=== PATIENT | male | born 1985 | race African-American/Black ===

== ENCOUNTER 2016-11-05 06:06 | Inpatient (IN) ==
[2016-11-05 07:01] LABS: Basophils % 0.2 % (0.0-0.8); Eosinophils # 0.2 10*3/uL (0.0-0.87); Eosinophils % 3.3 % (0.00-10.9); Immature Granulocytes % 0.2 %; Immature Granulocytes Absolute 0.01 #; Lymphocytes # 1.1 10*3/uL (1.4-4.0); Lymphocytes % 22.7 % (21.2-54.2); Mean Corpuscular Hemoglobin 30 PG (27-34); Mean Corpuscular Volume 92.3 FL (87-102); Mean Platelet Volume 9.5 FL (9.6-12.0); Monocytes # 0.4 10*3/uL (0.11-0.8); Monocytes % 7.6 % (1.7-12.7); Neutrophils # 3.2 10*3/uL (1.4-7.4); Platelet Count 180 T/CUMM (130-400); Red Blood Count 2.71 MC/CUMM (3.8-5.5); Red Cell Distribution Width 17.9 % (9.3-17.3); White Blood Count 4.8 T/CUMM (4-12)
[2016-11-05 07:44] LABS: Alanine Aminotransferase 41 U/L (16-61); Albumin 2.5 G/DL (3.4-5.0); Alkaline Phosphatase 225 U/L (45-117); Amylase 237 U/L (25-115); Aspartate Amino Transferase 16 U/L (0-37); Bilirubin,Indirect 0.3 MG/DL (0.0-1.0); Bilirubin,Total < 0.39 MG/DL (0.2-1.0); Blood Urea Nitrogen 21 MG/DL (7-18); Calcium 8.4 MG/DL (8.5-10.1); Glucose 254 MG/DL (74-106); Osmolality,Calculated 294.1 MOS/KG (273-304); Sodium 142 MMOL/L (136-145); Total Protein 6.2 G/DL (6.4-8.3)
--- NOTE | 2016-11-05 10:04 | Ultrasound Report ---
Left lower extremity venous Doppler with bob scale, Spectral Doppler and color-flow analysis performed and interpreted. Indication: Left leg pain and swelling Scanning over the left common femoral vein, superficial femoral vein, greater saphenous vein and popliteal vein demonstrates normal compressibility, color flow, and augmentation. Impression: No evidence of left lower extremity deep venous thrombosis. PROCEDURE INTERPRETED AT [facility] DEPARTMENT OF RADIOLOGY Final Report Signed by: Dr. Carolann Alvarez
--- NOTE | 2016-11-05 10:31 | Emergency Department Note ---
Dante Bueno Brittany, am scribing for, and in the presence of, Jewel Pizano MD 06:52. Harinder Bueno Sunil, MD, personally performed the services described in this documentation, ascribed by Sadaf Howell in my presence, and it is both accurate and complete . Arrival - Arrival Chief Complaint: Shortness of Breath Stated Complaint: fluid around stomach leg swollen sob ED Nursing Triage Note: Patient complains of shortness of breath and swelling that has been going on since he was discharged from the hospital on October 27. Patient was recently hospitalized and treated for staph infection and pneumonia. +3 pitting edema noted to left leg and right thigh. Hx of non- compliant DM and right BKA. Mode of Arrival: Wheelchair Limitations: No Limitations Source: Patient, RN Notes Reviewed - History of Present Illness HPI Narrative: Patient is a 31 y/o black male presenting to the ED with c/o abdominal swelling and lower extremity edema which onset earlier this month, about 9 days ago per patient. Per triage note patient was recently DC'd from another facility on October 27 s/p admission for Staph Infection. Patient reports that during hospitalization he had drains placed to bilateral upper thigh areas. Swelling has been ongoing since his DC. He is currently on Lasix 80 mg BID, but he states that this has not provided any relief of swelling and is not producing adequate urine. Patient had Right BKA performed March of 2016 secondary to uncontrolled IDDM. He denies use of EtOH or recreational drugs. He states that he recently quit smoking. He denies history of CHF or AK. Patient has no other complaint/pain. He does not appear to be in any acute distress and vital signs are stable. Onset (ago): day(s) (9) Consistency: constant Allergies/Adverse Reactions: Allergies Allergy/AdvReac Type Severity Reaction Status Date / Time No Known Allergies Allergy Verified 08/21/14 10:03 Home Medications: Home Medications Medication Instructions Recorded Confirmed Type Insulin Aspart Prot/Asp 70/30 20 unit SUBCUT QAM 10/26/14 11/05/16 History [NovoLOG Mix 70/30] Chlorhexidine 4% Soln [Hibiclens] 1 applic TOP DAILY topical 08/06/15 11/05/16 Rx solution HYDROcodone/ACETAMIN 7.5-325 1 tablet PO Q4H PRN #30 tablet 08/06/15 11/05/16 Rx [[place] 7.5-325] Nicotine 21 mg/24 Hr Patch 1 patch TRANSDERM DAILY PRN #20 08/06/15 11/05/16 Rx [Nicoderm CQ 21 mg/24 hr Patch] patch Sodium Hypochlorite 0.25% Irr 1 applic TOP DAILY irrigation 08/06/15 11/05/16 Rx [Dakins 1/2 Strength 0.25% Soln] Ciprofloxacin Tab [Cipro Tab] 500 mg PO BID #14 tablet 08/09/15 11/05/16 Rx Insulin Aspart Prot/Asp 70/30 6 unit SUBCUT BEDTIME injection 08/09/15 Rx [NovoLOG Mix 70/30] Skin Healing Oint (Aquaphor) 1 applic TOP PRN PRN #0 ointment 08/09/15 11/05/16 Rx [Aquaphor] Clindamycin Cap [Cleocin Cap] 300 mg PO Q6HR #28 capsule 02/23/16 11/05/16 Rx Fluticasone 50 Mcg Nasal [place] 2 spray BOTH NARES DAILY 11/05/16 11/05/16 History [Flonase Nasal [place]] Review of System - Review of System 12 point system: reviewed and no additional remarkable complaints except as stated - Review of System Constitutional: Absent: chills, fever Eyes: Absent: vision change Head/Ears/Nose/Throat: Absent: nasal drainage, sore throat Respiratory: Absent: respiratory distress Cardiovascular: Present: edema. Absent: chest pain Gastrointestinal: Present: other (abdominal swelling). 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 - Surgical History Orthopedic Surgeries: Surgical HX of;: Orthopedic Surgery (Right BKA) - Family History Family History: Reports;: Family Diabetes (mother), Family Hypertension, Family Stroke - Social History Smoking Status: Current every day smoker Frequency of Alcohol Use: None Type of Drug Use: None Exam Vital Signs: Vital Signs Temperature 97.8 F 11/05/16 07:01 Pulse Rate 91 H 11/05/16 09:00 Respiratory Rate 17 11/05/16 09:00 Blood Pressure 155/99 11/05/16 09:00 O2 Sat by Pulse Oximetry 100 11/05/16 09:00 - General General appearance: alert, in no apparent distress - Head Head exam: Present: atraumatic, normocephalic, normal inspection - Eye Eye exam: Present: normal appearance, PERRL, EOMI - ENT ENT exam: Present: normal exam, normal oropharynx - Neck Neck exam: Present: normal inspection, full ROM, trachea midline - Chest Chest inspection: Present: normal inspection, symmetric chest wall rise - Respiratory Respiratory exam: Present: normal lung sounds bilaterally - Cardiovascular Cardiovascular exam: Present: regular rate, normal rhythm, normal heart sounds - Abdominal Exam Abdominal exam: Present: soft, distention (slightly distended abdomen), tenderness (diffusely tender to palpation), normal bowel sounds. Absent: guarding, rebound - Extremities Exam Extremities exam: Absent: normal inspection (Right BKA, swollen LLE, DIONNE hose noted to LLE up to mid-thigh) - Back Exam Back exam: Present: normal inspection - Neurological Exam Neurological exam: Present: alert, oriented X3, CN II-XII intact. Absent: motor sensory deficit - Psychiatric Psychiatric exam: Present: normal affect, normal mood - Skin Skin exam: Present: warm, dry Results - Labs CBC & BMP: 11/05/16 06:36 11/05/16 06:36 Lab Results: I have reviewed the patients labs Labs: Laboratory Tests 11/05/16 06:36 WBC 4.8 RBC 2.71 L Hgb 8.0 L Hct 25.0 L RDW 17.9 H Plt Count 180 MPV 9.5 L Lymph # (Auto) 1.1 L Laboratory Tests 11/05/16 06:36 Sodium 142 Potassium 5.0 Chloride 119 H Carbon Dioxide 14 L BUN 21 H Creatinine 1.40 H Glucose 254 H Calcium 8.4 L Alkaline Phosphatase 225 H Total Protein 6.2 L Albumin 2.5 L Amylase 237 H Lipase 2564.0 H Laboratory Tests 11/05/16 07:07 B-Natriuretic Peptide 263 H - Impressions This patient presents with epigastric pain not feeling well left lower extremity swelling venous Doppler of the left lower extremity is negative for blood clots but his amylase and lipase both are elevated This patient has acute pancreatitis I discussed with the physician medical assistant cardiology for the hospitalist who will see the patient - Diagnostic Findings Procedure: Ultrasound: report reviewed by me (Venous Doppler: No evidence of left lower extremity deep venous thrombosis.) Disposition Clinical Impression: Pancreatitis Case discussed with: patient Disposition: Still a Patient
--- NOTE | 2016-11-05 11:10 | Hospitalist History & Physical ---
<Asia Bernard - Last Filed: 11/05/16 13:06> Assessment and Plan (1) Anemia Status: Acute Assessment and plan: Serial h&hs. Monitor patient. Order PPI. Anemia panel. Consult GI for evaluation. Current Visit: Yes (2) Pancreatitis Status: Acute Assessment and plan: Lipase elevated. F/u with abdominal study. IVF. pain med as needed. Bowel rest. Current Visit: Yes (3) Uncontrolled insulin dependent diabetes mellitus Status: Acute Assessment and plan: Accuchecks achs. Initiate SSI. Consult DM for education. Check A1c in am. Current Visit: No (4) GI bleeding Status: Acute Assessment and plan: Pt. reports throwing up maroon colored blood and passing loose stools that are bright red in color. Consult GI to evaluate. Monitor serial h&hs. IVF. PPI ordered. Current Visit: Yes History of Present Illness Chief complaint: abdominal swelling History of present illness: Mr. Schumacher is a 31 year old black male with a history of uncontrolled DM with a right bka and anemia that presented to the ED today with complaints of swelling to abdomen, mild pain, and lower extremities with hematemesis and BRBPR. The patient states he noted the swelling about 9 days. He also reports being recently discharged from another facility where he was hospitalized for greater than 2 weeks for a staph infection. He states that the swelling has been ongoing since his hospitalization at that time. Pt. confirms feeling feverish, experiencing chills, n/v/d. He states he takes Lasix 80 mg twice daily but has seen a decrease in his urine output. He reports swelling to the left extremity and states his face even swelled at one point. He denies chest pain. Pt. also denies any other issues in the ED at this time. When patient presented to the ED , labs were drawn and pt was found to have a lipase over greater than 2000, elevated blood sugar at 254, bun/creatinine 21/1.40, BNP of 263 and h&h of 8 and 25. CXR also revealed infiltrate at left lung base. Pt. will be admitted to the hospitalist service for further eval and treatment. Home Medications Medication Instructions Recorded Confirmed Type Chlorhexidine 4% Soln [Hibiclens] 1 applic TOP DAILY topical 08/06/15 11/05/16 Rx solution HYDROcodone/ACETAMIN 7.5-325 1 tablet PO Q4H PRN #30 tablet 08/06/15 11/05/16 Rx [[place] 7.5-325] Nicotine 21 mg/24 Hr Patch 1 patch TRANSDERM DAILY PRN #20 08/06/15 11/05/16 Rx [Nicoderm CQ 21 mg/24 hr Patch] patch Sodium Hypochlorite 0.25% Irr 1 applic TOP DAILY irrigation 08/06/15 11/05/16 Rx [Dakins 1/2 Strength 0.25% Soln] Ciprofloxacin Tab [Cipro Tab] 500 mg PO BID #14 tablet 08/09/15 11/05/16 Rx Skin Healing Oint (Aquaphor) 1 applic TOP PRN PRN #0 ointment 08/09/15 11/05/16 Rx [Aquaphor] Clindamycin Cap [Cleocin Cap] 300 mg PO Q6HR #28 capsule 02/23/16 11/05/16 Rx Fluticasone 50 Mcg Nasal [place] 2 spray BOTH NARES DAILY 11/05/16 11/05/16 History [Flonase Nasal [place]] Gabapentin Cap/Tab [Neurontin 600 mg PO TID 11/05/16 11/05/16 History Cap/Tab] Insulin Detemir [Levemir] 10 unit SUBCUT DAILY 11/05/16 11/05/16 History Allergies Allergy/AdvReac Type Severity Reaction Status Date / Time No Known Allergies Allergy Verified 08/21/14 10:03 Medical,Surgical,& Family Hx - Medical History Endocrine: History of: Diabetes Mellitus (IDDM), Diabetes Mellitus (NIDDM) Musculoskeletal: History of: Amputation (right bka) 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 - Surgical History Orthopedic Surgeries: Surgical HX of;: Orthopedic Surgery (Right BKA) - Family History Family History: Reports;: Family Diabetes (mother), Family Hypertension, Family Stroke - Social History Smoking Status: Current every day smoker Frequency of Alcohol Use: None Type of Drug Use: None Marital Status: Single Lives With:: Parent Functional capacity: uses cane/walker - Constitutional Constitutional: Present: chills, fever(s), night sweats, weakness - EENT Eyes: Absent: blurry vision, loss of vision Ears: Absent: decreased hearing Nose, mouth and throat: Absent: epistaxis, headache(s) - Cardiovascular Cardiovascular: Present: edema. Absent: chest pain at rest - Gastrointestinal Gastrointestinal: Present: abdominal pain, hematemesis, loose stools, nausea, vomiting - Genitourinary Genitourinary: Present: dysuria - Neurological Neurological: Absent: confusion, dizziness - Psychiatric Psychiatric: Present: anxiety, depression Exam - Constitutional Vitals: Period Temp Pulse Resp BP Sys/Gre[place] Pulse Ox Last 24 Hr 97.8 F-97.8 F 91-103 17-20 108-155/67-99 100-100 General appearance: normal weight, no acute distress - Head Head exam: Present: normal inspection, normocephalic - Eye Eye exam: Present: EOMI. Absent: scleral icterus Pupils: Present: LINDSEY. Absent: fixed - Neck Neck exam: Present: normal inspection - Respiratory Respiratory exam: Present: clear to auscultation bilaterally. Absent: wheezes - Cardiovascular Cardiovascular exam: Present: regular rate and rhythm. Absent: irregular rhythm - GI/Abdominal GI/Abdominal exam: Present: normal bowel sounds, tenderness, soft - Extremities Exam Extremities exam: Present: normal capillary refill, edema, other (pt has right bka) - Neurological Exam Neurological exam: Present: alert, oriented X3 - Psychiatric Psychiatric exam: Present: normal affect, normal mood - Skin Skin exam: Present: normal color, warm, dry Results - Labs CBC & BMP: 11/05/16 06:36 11/05/16 06:36 Lab Results: I have reviewed the past 24 hour labs <Bg Molina - Last Filed: 11/05/16 15:26> History of Present Illness History of present illness: Patient seen and examined independently of HANNA Bernard. Patient is a poor historian with differing stories. Recent admission in [place] with a staph infection, unable to tell me where the infection was. He notes that he started swelling in his leg and abdomen before discharge and this has worsened since that time. He does report that he did not get any of his prescriptions filled after discharge. He believes that he completed his antibiotic course prior to discharge. He does report being on multiple anti-depressants and anti-anxiety medications. Today he just happened to be here due to his uncle being in the ccu and decided to come to the emergency department due to his persistent edema. He also reports nausea, abdominal pain and bloody bowel movements. His lipase was found to be 2500 in the ED. Will consult GI. Obtain CT A/P. Exam - Constitutional Vitals: Period Temp Pulse Resp BP Sys/[place] Pulse Ox Last 24 Hr 97.8 F-98.9 F 84-103 17-20 108-155/67-99 100-100 Results - Labs CBC & BMP: 11/05/16 06:36 11/05/16 06:36
[2016-11-05] MEDS ORDERED: GLUCAGON 1 MG VIAL IM PRN (11:29)
[2016-11-05] MEDS ORDERED: ACETAMINOPHEN 325 MG TABLET PO PRN (11:29)
[2016-11-05] MEDS ORDERED: SODIUM CHLORIDE 0.9% 1,000 ML IV SCH (11:30)
--- NOTE | 2016-11-05 11:49 | XRay Report ---
Portable chest. Indication: Edema. Comparison: December 14, 2008. There is minimal interstitial infiltrate pleasant present in the left lung base. The right lung is clear. The heart and mediastinal contours are unremarkable. Normal osseous structures. Impression: Minimal interstitial infiltrate at the left lung base. PROCEDURE INTERPRETED AT [facility] DEPARTMENT OF RADIOLOGY Final Report Signed by: Dr. Carolann Alvarez
[2016-11-05] MEDS: INSULIN LISPRO 100 UNIT/ML SUBCUT SCH ×3 (13:11→21:59)
--- NOTE | 2016-11-05 14:01 | Gastrointestinal Consult Note ---
Assessment and Plan - Time spent with patient Time spent with patient: Greater than 30 minutes (1) GI bleeding Status: Acute Current Visit: Yes (2) Pancreatitis Status: Acute Current Visit: Yes (3) Abnormal findings on diagnostic imaging of abdomen Status: Acute Current Visit: Yes (4) Other specified counseling Status: Acute Current Visit: Yes History of Present Illness History of present illness: Mr. Schumacher is a 31 year old male Home Medications Medication Instructions Recorded Confirmed Type Chlorhexidine 4% Soln [Hibiclens] 1 applic TOP DAILY topical 08/06/15 11/05/16 Rx solution HYDROcodone/ACETAMIN 7.5-325 1 tablet PO Q4H PRN #30 tablet 08/06/15 11/05/16 Rx [[place] 7.5-325] Nicotine 21 mg/24 Hr Patch 1 patch TRANSDERM DAILY PRN #20 08/06/15 11/05/16 Rx [Nicoderm CQ 21 mg/24 hr Patch] patch Sodium Hypochlorite 0.25% Irr 1 applic TOP DAILY irrigation 08/06/15 11/05/16 Rx [Dakins 1/2 Strength 0.25% Soln] Ciprofloxacin Tab [Cipro Tab] 500 mg PO BID #14 tablet 08/09/15 11/05/16 Rx Skin Healing Oint (Aquaphor) 1 applic TOP PRN PRN #0 ointment 08/09/15 11/05/16 Rx [Aquaphor] Clindamycin Cap [Cleocin Cap] 300 mg PO Q6HR #28 capsule 02/23/16 11/05/16 Rx Fluticasone 50 Mcg Nasal [place] 2 spray BOTH NARES DAILY 11/05/16 11/05/16 History [Flonase Nasal [place]] Gabapentin Cap/Tab [Neurontin 600 mg PO TID 11/05/16 11/05/16 History Cap/Tab] Insulin Detemir [Levemir] 10 unit SUBCUT DAILY 11/05/16 11/05/16 History Allergies Allergy/AdvReac Type Severity Reaction Status Date / Time No Known Allergies Allergy Verified 08/21/14 10:03 Medical,Surgical,& Family Hx - Medical History Endocrine: History of: Diabetes Mellitus (IDDM), Diabetes Mellitus (NIDDM) Musculoskeletal: History of: Amputation (right bka) 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 - Surgical History Orthopedic Surgeries: Surgical HX of;: Orthopedic Surgery (Right BKA) - Family History Family History: Reports;: Family Diabetes (mother), Family Hypertension, Family Stroke - Social History Smoking Status: Current every day smoker Frequency of Alcohol Use: None Type of Drug Use: None Exam - Constitutional Vitals: Period Temp Pulse Resp BP Sys/Greene Pulse Ox Last 24 Hr 97.8 F-98.9 F 84-103 17-20 108-155/67-99 100-100 Results - Labs CBC & BMP: 11/05/16 06:36 11/05/16 06:36 Note Addendum: PLEASE NOTE -- automatic citation of patient information is unavoidable in this electronic note. I have made a reasonable effort to review the information cited , but it is not a part of my evaluation, impression, or recommendation unless specifically discussed in the dictated text that follows. As well, voice recognition software was used in the creation of this clinical note. Reasonable effort was made to identify and correct gross errors. Despite proofreading, errors in deputy sheriff generalist may be present, including nonsense verbiage at times. If you encounter such an error, please contact me at for discussion and correction. -- Carla Chief complaint: abdominal pain History of present illness: This is a new patient, a 31-year-old male seen by consultation for evaluation of abdominal pain and anemia. The patient is admitted to hospitalist service under the care of Dr. Molina with a primary diagnosis of anemia and a secondary diagnosis of acute pancreatitis. The patient was admitted through the emergency department with primary complaint of abdominal swelling, mild pain, hematemesis, and bright red blood per rectum. Evaluation at that time revealed anemia with hemoglobin of 8.0 g/dL and mild electrolyte disturbances. The patient was started on a pancreatitis regimen with bowel rest and crystalloid resuscitation. As well, blood counts are being monitored but no transfusion has been indicated to this point. Of note, the patient is a poorly controlled insulin dependent diabetic and glucose was moderately elevated on arrival. The patient reports a fairly extensive recent medical history with hospital admission for similar complaints over the past couple of months in [place]. He reports swelling in his abdomen, food collection in his abdomen, chronic nausea with vomiting occasionally, and loose stool. He has undergone radiologic evaluation CT scanning and MRI but does not recall any diagnoses made. CT scanning here has revealed possible variant vascular anatomy as well as significant thickening of the small bowel. The patient does not remember any such diagnosis. He reports having seen blood in his stool on one occasion last week, low volume. He reports having seen blood in his vomitus today in the emergency department. At present he is relatively comfortable no significant distress. Patient denies fever, chills, night sweats, rigors, headache, dizziness, neck pain, visual changes, redness of the eyes, dysphagia, odynophagia, difficulty chewing, chest pain, shortness of breath, weight loss, proctalgia, constipation , dysuria, skin changes, temperature regulation issues, flushing, easy bleeding/ bruising, musculoskeletal pain, mental status change, numbness/weakness in the extremities, yellowing of the eyes/skin, cutaneous eruptions, and other complaints in general. Review of systems: 12 point review of systems was negative except as documented above. Outpatient medications: insulin, Neurontin, nicotine patch, [place], Flonase, clindamycin, ciprofloxacin Inpatient medications: Tylenol, [place], Humalog, Zofran, Protonix Past Medical History: diabetes, right lower extremity amputation (BKA) due to peripheral vascular disease Social history: positive tobacco. Negative alcohol Family history: no gastrointestinal cancers Physical examination: Vital Signs: Current vital signs reviewed and documented above. General Appearance: lying in bed. Comfortable. No apparent distress. Head: Normocephalic. Neck: Palpation of the neck revealed no abnormalities. Eyes: No scleral icterus. No scleral injection. No conjunctival pallor. Oral Cavity: Odor of breath was normal. No drooling was observed. Lips showed no abnormalities. Floor of the mouth showed no abnormalities. Pharynx: Oropharynx was normal. Lungs: Respiration rhythm and depth was normal. Cardiovascular: Heart rate and rhythm were normal. No murmurs were appreciated. Abdomen: abdomen was not distended. Abdominal palpation revealed mild diffuse tenderness and no hepatosplenomegaly. Ascites was not discovered. Abdominal auscultation revealed positive bowel sounds. Musculoskeletal System: Musculoskeletal system was grossly normal with the exception of a right lower extremity (BKA). Neurological: level of consciousness was normal. Speech was normal. Skin: General appearance was normal. Color and pigmentation were normal. No skin lesions. 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 Hematochezia -- with report of both hematochezia and hematemesis, the differential diagnosis includes peptic ulcer, Alyssa Arvizu tear, gastritis/ esophagitis generally, arteriovenous malformation, diverticular bleeding, infectious/inflammatory enterocolitis, colon polyps (including cancer), and others. I recommend serial hemoglobin and hematocrit monitoring with transfusion as indicated. I recommend aggressive crystalloid resuscitation as indicated. I recommend intravenous proton pump inhibitor. Patient will need upper endoscopy followed by colonoscopy with timing dependent on clinical progress. I would hold the endoscopy for now pending improvement of the pancreatitis and better understanding regarding the CT findings as discussed below. 2. Pancreatitis -- the patient has biochemical evidence of same but is not having significant abdominal discomfort. I recommend continued bowel rest and crystalloid resuscitation. I recommend analgesia as needed. I recommend holding diet until patient develops a robust appetite. With respect to pancreatitis, there is not clear indication for antibiotic at this point. 3. Abnormal radiologic findings involving the digestive tract and vascular beds -- The CT findings are concerning for diffuse inflammatory change involving the small bowel. As well, there is the suggestion of variant vascular anatomy. The interplay of these two findings is not immediately clear, neither is it clear whether vascular compromise proper is occurring. I recommend aggressive attempts to get radiologic and other records from the [facility] that patient reported. Failing that, further radiologic evaluation will be necessary to better characterize both the gastrointestinal and vascular condition. Likely , both oral and intravenous contrast will be needed. Some consideration must also be given to the possibility of mesenteric ischemia in this setting and surgical consultation is reasonably indicated. Based on the patient's report, it would appear this is a chronic condition with acute exacerbation and inflammatory bowel disease is a possibility. 4. Other specified counseling -- The patient was seen for greater than 30 minutes. The patient was counseled for greater than 50% of this time regarding differential diagnosis, likely diagnosis, diagnostic and therapeutic alternatives, risks/benefits/alternatives of medications and procedures, and plan of care generally. The patient expressed understanding and wishes to proceed. Recommendations: -- crystalloid resuscitation as indicated -- NPO until patient develops a robust appetite -- transfusion as indicated -- serial hemoglobin and hematocrit monitoring -- upper and lower endoscopy may be necessary but hold pending better characterization of CT findings -- aggressively pursue records from [facility] -- failing record retrieval, consider more sensitive radiologic studies to better characterize both the gastrointestinal and vascular findings -- consider surgical consultation -- thank you for consultation. Dr. Centeno will assume G.I. care for this patient tomorrow.
[2016-11-05] MEDS: ONDANSETRON 4 MG/2 ML VIAL IV PRN (14:21)
--- NOTE | 2016-11-05 15:10 | CT Report ---
CT of the abdomen and pelvis without intravenous or oral contrast. Indication: Generalized abdominal pain. The lack of contrast limits the exam. Axial images were obtained with sagittal and coronal reconstructions. No previous study. The heart is upper limits of normal in size. There are stranding opacities in the left lingula, consistent with atelectasis or interstitial infiltrate. There is no pericardial or pleural effusion. A hiatal hernia is present, with wall thickening seen. There is evidence of a vascular variation present. 2 large vascular structures descend along the left of the midline. The left most vessel is slightly larger than the more midline structure. 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 The liver is normal in size. The hepatic veins are mildly engorged. There is no splenic enlargement. The gastric contour is normal. There are loops of small intestine present having wall thickening centrally in the abdomen, as well as air-fluid levels. The appendix is not discretely seen. The colon is not dilated. There is no evidence of bowel obstruction. There is free fluid within the peritoneal cavity, particularly within the pelvis. Rather extensive subcutaneous edema is noted. No free air. Osseous structures are unremarkable. Impression: 1. Limitation secondary to lack of intravenous and oral contrast. 2. Free fluid within the lower abdomen and pelvis. 3. Abnormal appearance of multiple loops of small intestine, with dilatation, wall thickening is suggested which is rather pronounced. 4. There is anatomic variation of the vascular system, possibly with a left-sided IVC; duplication of the aorta is extremely rare and usually does not continue into the abdomen. The CT exam was performed using one or more of the following dose reduction techniques: Automated exposure control, adjustment of the mA and/or kV according to patient size, or use of iterative reconstruction technique. PROCEDURE INTERPRETED AT [facility] DEPARTMENT OF RADIOLOGY Final Report Signed by: Dr. Carolann Alvarez
[2016-11-05 17:31] LABS: Hematocrit 21.9 VOL% (42.0-52.0); Hemoglobin 6.9 GM/DL (14.0-18.0)
[2016-11-05] MEDS: SODIUM CHLORIDE 0.9% 1,000 ML IV SCH (18:03)
[2016-11-05] MEDS ORDERED: SODIUM CHLORIDE 0.9% 250 ML IV PRN (18:27)
[2016-11-06 03:52] LABS: Apearance,Urine CLEAR (Clear); Bacteria,Urine Few /HPF (Few); Bilirubin,Urine Negative (Negative); Blood, Urine Small mg/dL (Negative); Glucose,Urine (UA) Negative (Negative); Hyaline Casts,Urine 9 /LPF (0-3); Ketones,Urine Negative (Negative); Mucus,Urine Occasional /LPF (Occasional); Nitrite,Urine Negative (Negative); Protein,Urine >=500 MG/DL; RBC,Urine 3 /HPF (0-4); Squamous Epithelial Cell,Urine Occasional /HPF (0-10); Urine Color Yellow (Yellow); Urine Specific Gravity 1.012 (1.001-1.035); Urine Urobilinogen < 2.0 EU/DL (0.2-1.0); WBC,Urine 1 /HPF (0-6)
[2016-11-06 06:12] LABS: Basophils % 0.2 % (0.0-0.8); Eosinophils # 0.1 10*3/uL (0.0-0.87); Eosinophils % 2.3 % (0.00-10.9); Hematocrit 27.3 VOL% (42.0-52.0); Immature Granulocytes % 0.2 %; Immature Granulocytes Absolute 0.01 #; Lymphocytes # 1.2 10*3/uL (1.4-4.0); Lymphocytes % 28.8 % (21.2-54.2); Mean Corpuscular Hemoglobin 30 PG (27-34); Mean Corpuscular Volume 90.4 FL (87-102); Mean Platelet Volume 9.1 FL (9.6-12.0); Monocytes # 0.4 10*3/uL (0.11-0.8); Monocytes % 8.4 % (1.7-12.7); Neutrophils # 2.6 10*3/uL (1.4-7.4); Neutrophils % 60.1 % (38.7-73.9); Platelet Count 152 T/CUMM (130-400); Red Blood Count 3.02 MC/CUMM (3.8-5.5); White Blood Count 4.3 T/CUMM (4-12)
[2016-11-06 07:01] LABS: Calcium 7.9 MG/DL (8.5-10.1); Magnesium 1.7 MG/DL (1.8-2.4)
[2016-11-06 07:02] LABS: Potassium 4.7 MMOL/L (3.5-5.1); Risk Ratio 2.11; Thyroid Stimulating Hormone 1.92 uIU/ml (0.358-3.74); VLDL CHOLESTEROL 25.2 MG/DL
[2016-11-06 07:09] LABS: Burr Cells Slight; Hypochromasia Slight
--- NOTE | 2016-11-06 08:15 | EKG Report ---
Stationary ECG Study [facility] ER Test Date: 11/05/2016 6:27:41 AM Pat Name: GEETHA FITZGERALD Department: Room: 241 Gender: M Clinical Dietitian: Davide : 1985 Requested by: Jewel Pizano Order Number: [id number] Reading MD: BRIGETTE LEVI Intervals [place] Rate: 90 P: 46 MS: 140 QRS: 64 QRSD: 78 T: 102 QT: 350 QTc: 397 Interpretive Statements SINUS RHYTHM VOLTAGE CRITERIA FOR LVH Electronically Signed On 11-06-16 09:49:26 CDT by BRIGETTE LEVI [email or web address]
[2016-11-06] MEDS: INSULIN LISPRO 100 UNIT/ML SUBCUT SCH ×4 (08:27→21:12)
[2016-11-06] MEDS: PANTOPRAZOLE 40 MG TABLET PO SCH (08:28)
--- NOTE | 2016-11-06 11:12 | Gastrointestinal Progress Note ---
<Kim Cote - Last Filed: 11/06/16 11:08> Assessment and Plan (1) Anemia Status: Acute Assessment and plan: 11/06-findings of anemia on admission with reports of hematemesis as well as hematochezia. Hemoglobin 9.2 units packed red blood cells. Complaints of abdominal pain with noncontrasted CT scan with no acute findings other than dilation of multiple loops of small intestines and wall thickening. Prior extensive workup at [facility]. Continue to monitor H&H and transfuse as needed. Reattempt to obtain medical records from [place]. Plan an addendum to follow Dr. Centeno. Current Visit: Yes Gastroenterology - PN: Subj Interval history: CC: Abdominal pain, swelling Patient is seen awake alert sitting up in chair. States he had an uneventful night. He was noted to be admitted on yesterday with complaints of abdominal swelling and findings of anemia. Also noted to have elevated lipase levels on admission. Patient states that he has not been anemic in the past that he is aware of. He denies any overt bleeding as well. He states he has never had pancreatitis that he can recall and denies a history of regular alcohol intake. Reports his drinking habits to be more socially related and only a beer or 2 when he is with friends at a time. He is diabetic and until recently has been uncontrolled and he has undergone amputation of his right lower extremity over the last several months which was done in [place]. He states that he was also seen at [facility] last month for complaints of abdominal pain and states he feels like he had what he considered to be an extensive workup with contrasted CT scans and ultrasounds with no acute findings that were reported. He has not had endoscopy done in the past. States his last hospitalization in [place] was for pneumonia. He complains more of his abdominal pain being related to distention and swelling and states he feels full all the time. He denies any nausea or vomiting. He did report on admission some hematemesis as well as hematochezia which he states he has not had before. He was admitted with hemoglobin of 6.9 and was transfused 2 units of packed red blood cells with hemoglobin now holding at 9. He has had no further overt bleeding since this time. We are attempting to obtain records from [facility] for his prior workup. CT scan without contrast without any acute findings other than some small intestine dilation and wall thickening and free fluid in lower abdomen and pelvis. His stools were 4+ positive for blood on admission. ROS: Denies shortness of breath or chest pain Exam (Progress Note) - Constitutional Vitals: Period Temp Pulse Resp BP Sys/Greene Pulse Ox Last 24 Hr 97.4 F-98.9 F 84-110 18-20 103-138/50-82 99-100 General appearance: no acute distress, under weight - Head Head exam: Present: normal inspection, normocephalic - Eye Eye exam: Present: other (Lids and conjunctive are unremarkable). Absent: scleral icterus - ENT ENT exam: Present: normal exam, normal oropharynx - Neck Neck exam: Present: normal inspection - Respiratory Respiratory exam: Present: clear to auscultation bilaterally. Absent: rales, rhonchi, wheezes - Cardiovascular Cardiovascular exam: Present: regular rate and rhythm. Absent: diastolic murmur , JVD, systolic murmur - GI/Abdominal GI/Abdominal exam: Present: normal bowel sounds, soft. Absent: ascites, distended, mass, organomegaly, tenderness - Extremities Exam Extremities exam: Present: normal inspection, full ROM - Back Exam Back exam: Present: normal inspection - Neurological Exam Neurological exam: Present: alert, oriented X3 - Psychiatric Psychiatric exam: Present: normal affect, normal mood - Skin Skin exam: Present: normal color, warm, dry Results - Labs CBC & BMP: 11/06/16 05:47 11/06/16 05:47 Lab Results: I have reviewed the past 24 hour labs - Diagnostic Findings Procedure: CT Abdomen and Pelvis: report reviewed by me <Santiago Centeno - Last Filed: 11/06/16 18:07> Exam (Progress Note) - Constitutional Vitals: Period Temp Pulse Resp BP Sys/Greene Pulse Ox Last 24 Hr 97.4 F-98.6 F 85-110 18-20 103-152/50-99 99-100 Results - Labs CBC & BMP: 11/06/16 05:47 11/06/16 05:47
[2016-11-06] MEDS: SODIUM CHLORIDE 0.9% 1,000 ML IV SCH (12:12)
--- NOTE | 2016-11-06 12:16 | Hospitalist Progress Note ---
Assessment and Plan (1) Uncontrolled insulin dependent diabetes mellitus Status: Acute Assessment and plan: SSI Current Visit: No (2) Anemia Status: Acute Assessment and plan: Received 2 units PRBCs GI assisting Current Visit: Yes (3) GI bleeding Status: Acute Assessment and plan: GI assisting Current Visit: Yes (4) Abdominal pain Status: Acute Assessment and plan: Nonspecific, located throughout Lipase elevated on admission, pain is not consistent with pancreatits, he really wants to eat Currently on IV fluids, which will be stopped once this is sorted out CT without contrast performed yesterday with nonspecific findings Current Visit: Yes (5) Leg edema, left Status: Acute Assessment and plan: Significant Reports that this started during his recent [facility] Once possible pancreatitis diagnosis is worked out, will stop fluids and start lasix Current Visit: Yes Hospitalist: Subjective Interval history: No acute events overnight. Patient's main complaint is of hunger this morning. Attempting to get records from [facility] in [place]. Exam - Constitutional Vitals: Period Temp Pulse Resp BP Sys/Greene Pulse Ox Last 24 Hr 97.4 F-98.6 F 85-110 18-20 103-138/50-82 99-100 General appearance: normal weight - Head Head exam: Present: normocephalic, atraumatic - Eye Eye exam: Present: EOMI Pupils: Present: LINDSEY - ENT ENT exam: Present: normal exam - Neck Neck exam: Present: normal inspection - Respiratory Respiratory exam: Present: clear to auscultation bilaterally. Absent: rhonchi, wheezes - Cardiovascular Cardiovascular exam: Present: regular rate and rhythm - GI/Abdominal GI/Abdominal exam: Present: normal bowel sounds, soft. Absent: tenderness, rebound - Extremities Exam Extremities exam: Present: normal inspection - Back Exam Back exam: Present: normal inspection - Neurological Exam Neurological exam: Present: alert, oriented X3 - Psychiatric Psychiatric exam: Present: normal affect, normal mood - Skin Skin exam: Present: warm, intact Results - Labs CBC & BMP: 11/06/16 05:47 11/06/16 05:47
--- NOTE | 2016-11-06 13:27 | Physician Query Form ---
CLICK EDIT DOCUMENT TO SELECT QUERY ANSWER --> OK --> SIGN Mirtha Leonard RN Clinical Evaporator Repairer W) [phone] (f) [phone] [email or web address] PROVIDERS: Make your selection(s) from the choices in EACH section by typing an "x" and enter comments in the comment section. Please use your independent medical judgment in providing your response. This request does not imply that any particular answer is desired or expected. CLINICAL INDICATORS: (Providers should not edit this section) Based on documentation of serum creatinine from 1.4 to 1.00. GFR from 81 to 118. Treated with NS infusion. Monitored with repeat lab checks. Clarify which of the following most accurately represents the patient's renal status: (x ) Acute kidney injury (non-traumatic) ( ) Acute renal failure ( ) Acute renal failure with underlying Chronic Kidney Disease (CKD) - please provide stage below ( ) Acute renal failure with pathological renal lesion ( ) Acute renal failure with necrosis ( ) tubular ( ) medullary ( ) cortical ( ) CKD - please provide stage below ( ) End Stage Renal Disease ( ) Acute interstitial nephritis ( ) Hepatorenal syndrome ( ) Other, please specify: ( ) Clinically unable to determine Chronic Kidney Disease Stages Source: National Kidney Disease Foundation ( ) Stage I (eGFR > or = 90) ( ) Stage II (eGFR 60 - 89) ( ) Stage III (eGFR 30 - 59) ( ) Stage IV (eGFR 15 - 29) ( ) Stage V (eGFR < 15 or dialysis) COMMENTS: PLEASE ALSO DOCUMENT RESPONSE IN PROGRESS NOTES AND/OR DISCHARGE SUMMARY Use of terms such as suspected, likely, or probable (associated with a specific diagnosis that is being evaluated, monitored, or treated as if it exists) are acceptable and can be restated in the discharge summary if not ruled out. MTDD
[2016-11-06] MEDS: FUROSEMIDE 40 MG/4 ML VIAL IV SCH (15:48)
[2016-11-07 06:03] LABS: Basophils % 0.3 % (0.0-0.8); Eosinophils # 0.1 10*3/uL (0.0-0.87); Eosinophils % 3.6 % (0.00-10.9); Hemoglobin 8.8 GM/DL (14.0-18.0); Immature Granulocytes % 0.3 %; Immature Granulocytes Absolute 0.01 #; Lymphocytes # 1.5 10*3/uL (1.4-4.0); Lymphocytes % 42.2 % (21.2-54.2); Mean Corpuscular HGB Conc 32.6 GM/DL (32-36); Mean Corpuscular Hemoglobin 29 PG (27-34); Mean Corpuscular Volume 89.1 FL (87-102); Monocytes # 0.4 10*3/uL (0.11-0.8); Monocytes % 11.5 % (1.7-12.7); Neutrophils # 1.5 10*3/uL (1.4-7.4); Neutrophils % 42.1 % (38.7-73.9); Platelet Count 176 T/CUMM (130-400); Red Blood Count 3.03 MC/CUMM (3.8-5.5); Red Cell Distribution Width 17.1 % (9.3-17.3); White Blood Count 3.6 T/CUMM (4-12)
[2016-11-07 06:31] LABS: Band Neutrophils 1 % (0-10); Burr Cells Slight; Eosinophils 4 % (0-10); Hypochromasia 1+; Lymphocytes 41 % (20-55); Microcytosis 1+; Segmented Neutrophils 47 % (50-85); Total Cells Counted 100
[2016-11-07 06:32] LABS: Acanthocytes Few; Platelet Estimate Adequate
[2016-11-07 06:36] LABS: Calcium 7.6 MG/DL (8.5-10.1); Magnesium 1.6 MG/DL (1.8-2.4); Osmolality,Calculated 281.4 MOS/KG (273-304); Osmolality,Calculated 283.3 MOS/KG (273-304); Potassium 4.4 MMOL/L (3.5-5.1); Potassium 4.5 MMOL/L (3.5-5.1)
[2016-11-07] MEDS ORDERED: FUROSEMIDE 20 MG/2 ML VIAL ONE (08:49)
[2016-11-07] MEDS: PANTOPRAZOLE 40 MG TABLET PO SCH (09:21)
[2016-11-07] MEDS: FUROSEMIDE 40 MG/4 ML VIAL IV SCH ×2 (09:22→15:45)
[2016-11-07] MEDS: INSULIN LISPRO 100 UNIT/ML SUBCUT SCH ×4 (09:22→20:02)
--- NOTE | 2016-11-07 11:14 | Gastrointestinal Progress Note ---
<RocaelKim Sherry - Last Filed: 11/07/16 11:12> Assessment and Plan (1) Anemia Status: Acute Assessment and plan: 11/07-hemoglobin holding in stable. No overt bleeding. Records from outside facility noted as below. Patient states he will proceed with EGD at this time. We will also work to obtain further records from prior inpatient stays at [facility]. Plan an addendum to followed by Dr. Centeno. 11/06-findings of anemia on admission with reports of hematemesis as well as hematochezia. Hemoglobin 9.2 units packed red blood cells. Complaints of abdominal pain with noncontrasted CT scan with no acute findings other than dilation of multiple loops of small intestines and wall thickening. Prior extensive workup at [facility]. Continue to monitor H&H and transfuse as needed. Reattempt to obtain medical records from [place]. Plan an addendum to follow Dr. Centeno. Current Visit: Yes Gastroenterology - PN: Subj Interval history: CC: Anemia, abdominal pain Patient is seen, lying in bed awake and alert. States he had an uneventful night. Denies any nausea or vomiting however states he did have some diarrhea after drinking his milk this morning. Denies any overt bleeding. 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 His cardiac workup during that time showed an EF of 35%. And there is also mention of a history of gastroparesis however there were no imaging reports her endoscopy reports sent. Patient states that that workup would have been done around August to September timeframe hospitalization. Will reattempt to obtain those records however patient states he would proceed with an EGD at this time if recommended. Abdomen soft, nontender. Hemoglobin is holding at 8.8. ROS: Denies shortness of breath or chest pain Exam (Progress Note) - Constitutional Vitals: Period Temp Pulse Resp BP Sys/Greene Pulse Ox Last 24 Hr 97.6 F-98.7 F 83-96 18-20 120-152/76-99 99-100 General appearance: normal weight, no acute distress - Head Head exam: Present: normal inspection, normocephalic - Eye Eye exam: Present: other (Lids and conjunctive are unremarkable). Absent: scleral icterus - ENT ENT exam: Present: normal exam, normal oropharynx - Neck Neck exam: Present: normal inspection - Respiratory Respiratory exam: Present: clear to auscultation bilaterally. Absent: rales, rhonchi, wheezes - Cardiovascular Cardiovascular exam: Present: regular rate and rhythm. Absent: diastolic murmur , JVD, systolic murmur - GI/Abdominal GI/Abdominal exam: Present: normal bowel sounds, soft. Absent: ascites, distended, mass, organomegaly, tenderness - Extremities Exam Extremities exam: Present: normal inspection, full ROM - Back Exam Back exam: Present: normal inspection - Neurological Exam Neurological exam: Present: alert, oriented X3 - Psychiatric Psychiatric exam: Present: normal affect, normal mood - Skin Skin exam: Present: normal color, warm, dry Results - Labs CBC & BMP: 11/07/16 04:40 11/07/16 04:40 Lab Results: I have reviewed the past 24 hour labs <Santiago Centeno - Last Filed: 11/07/16 11:37> Exam (Progress Note) - Constitutional Vitals: Period Temp Pulse Resp BP Sys/Greene Pulse Ox Last 24 Hr 97.6 F-98.7 F 83-101 18-20 120-152/76-99 99-100 Results - Labs CBC & BMP: 11/07/16 04:40 11/07/16 04:40
[2016-11-07] MEDS ORDERED: MAGNESIUM SULF RIDER 4 GM in PREMIX 1 EACH IV PRN (12:06)
[2016-11-07] MEDS: cefTRIAXone 1,000 MG in SODIUM CHLORIDE 0.9% 100 ML IV SCH (13:34)
[2016-11-07] MEDS: MAGNESIUM SULF RIDER 2 GM in PREMIX 1 EACH IV PRN (15:26)
--- NOTE | 2016-11-07 17:13 | Hospitalist Progress Note ---
Assessment and Plan (1) Anemia Status: Acute Assessment and plan: Received 2 units PRBCs GI assisting Current Visit: Yes (2) GI bleeding Status: Acute Assessment and plan: GI assisting EGD tomorrow Current Visit: Yes (3) Abdominal pain Status: Acute Assessment and plan: Nonspecific, located throughout Lipase elevated on admission, pain is not consistent with pancreatits, he really wants to eat CT without contrast performed yesterday with nonspecific findings GI assisting EGD today Current Visit: Yes (4) Leg edema, left Status: Acute Assessment and plan: Reports that this started during [facility] 2[facility]2 systolic heart failure Lasix Current Visit: Yes (5) Type 1 diabetes mellitus Status: Acute Assessment and plan: Suppose to take humulin 70/30, 30 units BID Will start humulin 70/30, 10 units BID for now SSI Suppose to take neurontin for neuropathy, will restart Current Visit: Yes (6) Systolic heart failure Status: Acute Assessment and plan: Per [facility] records, ef 30-35 Continue lasix IV 40 BID Daily weights Checking BNP Current Visit: Yes (7) Hypertension Status: Acute Assessment and plan: Suppose to take metoprolol 25 BID and hydralazine 25 tid Will start metoprolol Current Visit: Yes Hospitalist: Subjective Interval history: No acute events overnight. Patient reports that he is hungry. Outside records from [facility] have been reviewed. Patient with a very long and complicated hospital course including DKA, acute hypooxic respiratory failure 2/2 multinodular pneumonia, MSSA endocarditis of tricuspid valve, multiple organ abscesses including lungs and Jv. He did complete a full course of antibiotics during his hospital course. It is also noted that he has systolic heart failure with an EF 30%-35%. On discharge he did not get any of his prescriptions filled, including a 12 week steroid taper and cymbalta. Exam - Constitutional Vitals: Period Temp Pulse Resp BP Sys/Greene Pulse Ox Last 24 Hr 98.0 F-98.7 F 83-106 18-20 120-142/76-90 100-100 General appearance: normal weight - Head Head exam: Present: normocephalic, atraumatic - Eye Eye exam: Present: EOMI Pupils: Present: LINDSEY - ENT ENT exam: Present: normal exam - Neck Neck exam: Present: normal inspection - Respiratory Respiratory exam: Present: clear to auscultation bilaterally - Cardiovascular Cardiovascular exam: Present: regular rate and rhythm - GI/Abdominal GI/Abdominal exam: Present: normal bowel sounds, soft - Extremities Exam Extremities exam: Present: normal inspection - Back Exam Back exam: Present: normal inspection - Neurological Exam Neurological exam: Present: alert, oriented X3 - Psychiatric Psychiatric exam: Present: normal affect, normal mood - Skin Skin exam: Present: warm, intact Results - Labs CBC & BMP: 11/07/16 04:40 11/07/16 04:40
[2016-11-07] MEDS: INSULIN NPH/REGULAR 70/30 100 UNIT/ML SUBCUT SCH (18:17)
[2016-11-07] MEDS: DEXTROSE 50% 25 GM/50 ML VIAL IV PRN (19:49)
[2016-11-07] MEDS: METOPROLOL TARTRATE 25 MG TABLET PO SCH (21:18)
[2016-11-07] MEDS: GABAPENTIN 600 MG TABLET PO SCH (21:18)
[2016-11-07] MEDS: ONDANSETRON 4 MG/2 ML VIAL IV PRN (21:25)
[2016-11-08] MEDS ORDERED: MORPHINE 2 MG/1 ML SYRINGE IV PRN (00:53)
[2016-11-08 07:01] LABS: Basophils % 0.5 % (0.0-0.8); Eosinophils # 0.1 10*3/uL (0.0-0.87); Eosinophils % 2.7 % (0.00-10.9); Hematocrit 31.8 VOL% (42.0-52.0); Immature Granulocytes % 0.2 %; Immature Granulocytes Absolute 0.01 #; Lymphocytes # 1.6 10*3/uL (1.4-4.0); Lymphocytes % 39.2 % (21.2-54.2); Mean Corpuscular HGB Conc 33.3 GM/DL (32-36); Mean Corpuscular Hemoglobin 30 PG (27-34); Mean Corpuscular Volume 89.1 FL (87-102); Mean Platelet Volume 9.2 FL (9.6-12.0); Monocytes # 0.5 10*3/uL (0.11-0.8); Monocytes % 11.3 % (1.7-12.7); Neutrophils # 1.9 10*3/uL (1.4-7.4); Neutrophils % 46.1 % (38.7-73.9); Platelet Count 194 T/CUMM (130-400); Red Blood Count 3.57 MC/CUMM (3.8-5.5); White Blood Count 4.1 T/CUMM (4-12)
[2016-11-08 07:24] LABS: Hemoglobin 10.6 GM/DL (14.0-18.0)
[2016-11-08 07:26] LABS: Calcium 8.2 MG/DL (8.5-10.1); Magnesium 1.8 MG/DL (1.8-2.4); Osmolality,Calculated 280.1 MOS/KG (273-304)
[2016-11-08] MEDS ORDERED: ETOMIDATE 20 MG/10 ML VIAL IV ONE (10:57)
[2016-11-08] MEDS ORDERED: PROPOFOL 200 MG/20 ML VIAL IV ONE (10:57)
[2016-11-08] MEDS ORDERED: LIDOCAINE 2% 5 ML VIAL ONE (10:57)
--- NOTE | 2016-11-08 11:07 | Operative Note ---
Date of procedure: 11/08/16 Pre-op diagnosis: Abnormal CT with complaints of abdominal pain Procedure: EGD 31-year-old gentleman with abdominal pain abnormal CT suggesting thickening of the small bowel prior workup and for Sid for similar complaints. Now for EGD to further evaluate. Informed consent was obtained for the patient He was sedated with MAC anesthesia per anesthesia protocol. Patient was placed in left lateral decubitus position the Olympus flexible video upper endoscope was inserted into the oral cavity under direct vision the esophagus was intubated. Findings: Esophagus-normal proximal mid esophageal mucosa distal esophagus small hiatal hernia no significant esophagitis, stricture, varices or Quintanilla's was identified. Stomach-normal insufflation normal mucosa to direct and retroflexed views of the body, fundus, cardia and antrum the stomach. Pylorus-normal Duodenum-normal for the bulb and duodenum to the proximal jejunum no mucosal abnormalities were identified. The procedure was terminated placed our procedure well his discharge recovery in good condition. Postop diagnosis: 1. Gastroesophageal reflux disease with small hiatal hernia-continue PPI treatment 2. Question CT abnormality on CT scan done with no oral or IV contrast we will recheck this in a.m. with contrast. Anesthesia: MAC Surgeon / Physician: Santiago Centeno Estimated blood loss: none Specimens: none sent Condition: stable Disposition: post procedure unit Results - Labs CBC & BMP: 11/08/16 06:28 11/08/16 06:28 Discharge Plan - Discharge Medications No Action Chlorhexidine 4% Soln [Hibiclens] 1 applic TOP DAILY topical solution HYDROcodone/ACETAMIN 7.5-325 [[place] 7.5-325] 1 tablet PO Q4H PRN #30 tablet PRN Reason: Pain Moderate (4-7) Nicotine 21 mg/24 Hr Patch [Nicoderm CQ 21 mg/24 hr Patch] 1 patch TRANSDERM DAILY PRN #20 patch PRN Reason: Nicotine Cravings Sodium Hypochlorite 0.25% Irr [Dakins 1/2 Strength 0.25% Soln] 1 applic TOP DAILY irrigation Ciprofloxacin Tab [Cipro Tab] 500 mg PO BID #14 tablet Skin Healing Oint (Aquaphor) [Aquaphor] 1 applic TOP PRN PRN #0 ointment PRN Reason: Dry Skin Clindamycin Cap [Cleocin Cap] 300 mg PO Q6HR #28 capsule Insulin Detemir [Levemir] 10 unit SUBCUT DAILY Fluticasone 50 Mcg Nasal [place] [Flonase Nasal [place]] 2 spray BOTH NARES DAILY Gabapentin Cap/Tab [Neurontin Cap/Tab] 600 mg PO TID - Follow Up or Referral - Forms/Instructions
--- NOTE | 2016-11-08 11:08 | Anesthesia Post-Op ---
Anesthesia Post OP - Post Ansesthetic Evaluation Patient seen in post op: Yes Resp: within normal limits CV: within normal limits Mental: within normal limits Temp: within normal limits [id number]: within normal limits Nausea and Vomiting: within normal limits Pain: within normal limits
[2016-11-08] MEDS: TAMSULOSIN 0.4 MG CAPSULE PO SCH (12:41)
[2016-11-08] MEDS: METOPROLOL TARTRATE 25 MG TABLET PO SCH ×2 (12:41→21:30)
[2016-11-08] MEDS: FUROSEMIDE 40 MG/4 ML VIAL IV SCH ×2 (12:41→17:21)
[2016-11-08] MEDS: DULoxetine 30 MG CAPSULE PO SCH (12:41)
[2016-11-08] MEDS: cefTRIAXone 1,000 MG in SODIUM CHLORIDE 0.9% 100 ML IV SCH (12:42)
[2016-11-08] MEDS: INSULIN NPH/REGULAR 70/30 100 UNIT/ML SUBCUT SCH ×2 (12:42→16:50)
[2016-11-08] MEDS: INSULIN LISPRO 100 UNIT/ML SUBCUT SCH ×4 (12:42→21:31)
[2016-11-08] MEDS: GABAPENTIN 600 MG TABLET PO SCH ×3 (12:49→21:30)
[2016-11-08] MEDS: PANTOPRAZOLE 40 MG TABLET PO SCH (12:49)
[2016-11-08] MEDS ORDERED: FUROSEMIDE 40 MG/4 ML VIAL IV SCH (16:16)
--- NOTE | 2016-11-08 16:16 | CT Report ---
CT of the abdomen CT of the abdomen and pelvis without intravenous CT of the abdomen and pelvis with and without intravenous contrast. Indication: Abdominal pain. Elevated lipase. Comparison: November 05, 2016. Axial images were obtained with sagittal and coronal reconstructions. 100 cc Omni 350. Oral contrast was administered. The heart is normal in size. There is atelectasis in the lingula. The lung bases are otherwise clear. There is a left-sided IVC. The abdominal aorta is of normal caliber. The liver is normal in size and density. No focal liver lesions are identified. The gallbladder is mildly contracted. There is no splenic or adrenal enlargement. The kidneys present a normal appearance. The ureters are normal in course and caliber. Normal-appearing pancreatic tissue is seen at the uncinate and head. There is absence of pancreatic tissue in the general area expected for the body and tail. The pancreatic duct is not dilated. There is no adrenal enlargement. The gastric contour is normal. The loops of small bowel are not dilated. The colon appears to begin at the mid line of the upper abdomen. No right-sided colon is seen. This could be anatomic variation or postsurgical change. The colon is not dilated and there is no colonic wall thickening. The appendix is not seen. The prostate gland is normal in size. The urinary bladder presents a normal appearance. There is no free air or free fluid in the peritoneal cavity. No adenopathy is seen. The osseous structures are unremarkable. Impression: 1. There is a left-sided IVC. 2. 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 No colon is seen in the right abdomen. These could represent congenital variations or postsurgical change. Clinical correlation recommended. The CT exam was performed using one or more of the following dose reduction techniques: Automated exposure control, adjustment of the mA and/or kV according to patient size, or use of iterative reconstruction technique. PROCEDURE INTERPRETED AT [facility] DEPARTMENT OF RADIOLOGY Final Report Signed by: Dr. Carolann Alvarez
--- NOTE | 2016-11-08 16:29 | Hospitalist Progress Note ---
Assessment and Plan (1) Anemia Status: Acute Assessment and plan: Received 2 units PRBCs EGD today with GERD and small hiatal hernia Current Visit: Yes (2) GI bleeding Status: Acute Assessment and plan: GI assisting EGD today with GERD and small hiatal hernia Current Visit: Yes (3) Abdominal pain Status: Acute Assessment and plan: Nonspecific, located throughout Lipase elevated on admission, pain is not consistent with pancreatits CT without contrast performed with nonspecific findings GI assisting EGD with GERD CT A/P with contrast today Current Visit: Yes (4) Leg edema, left Status: Acute Assessment and plan: Reports that this started during his recent [facility] 2/2 systolic heart failure Lasix Current Visit: Yes (5) Type 1 diabetes mellitus Status: Acute Assessment and plan: Suppose to take humulin 70/30, 30 units BID Continue humulin 70/30, 10 units BID for now SSI Current Visit: Yes (6) Systolic heart failure Status: Acute Assessment and plan: Per [facility] records, ef 30-35 Daily weights BNP elevated from admission Will repeat his echo here Increase lasix to 60 IV BID Current Visit: Yes (7) Hypertension Status: Acute Assessment and plan: Suppose to take metoprolol 25 BID and hydralazine 25 tid Continue metoprolol Current Visit: Yes Hospitalist: Subjective Interval history: No acute events overnight. Patient is eager for a meal. Exam - Constitutional Vitals: Period Temp Pulse Resp BP Sys/Greene Pulse Ox Last 24 Hr 97.0 F-98.0 F 75-102 16-20 107-164/70-99 98-100 General appearance: normal weight - Head Head exam: Present: normocephalic, atraumatic - Eye Eye exam: Present: EOMI Pupils: Present: LINDSEY - ENT ENT exam: Present: normal exam - Neck Neck exam: Present: normal inspection - Respiratory Respiratory exam: Present: clear to auscultation bilaterally - Cardiovascular Cardiovascular exam: Present: regular rate and rhythm - GI/Abdominal GI/Abdominal exam: Present: normal bowel sounds, soft. Absent: tenderness, rebound - Extremities Exam Extremities exam: Present: edema - Back Exam Back exam: Present: normal inspection - Neurological Exam Neurological exam: Present: alert, oriented X3 - Psychiatric Psychiatric exam: Present: normal affect, normal mood - Skin Skin exam: Present: warm, intact Results - Labs CBC & BMP: 11/08/16 06:28 11/08/16 06:28
[2016-11-08] MEDS: MAGNESIUM SULF RIDER 2 GM in PREMIX 1 EACH IV PRN (18:14)
[2016-11-09] MEDS: DEXTROSE 50% 25 GM/50 ML VIAL IV PRN (00:37)
[2016-11-09] MEDS: ONDANSETRON 4 MG/2 ML VIAL IV PRN (03:36)
[2016-11-09 07:09] LABS: Basophils % 0.2 % (0.0-0.8); Eosinophils # 0.2 10*3/uL (0.0-0.87); Eosinophils % 3.2 % (0.00-10.9); Hematocrit 31.8 VOL% (42.0-52.0); Hemoglobin 10.4 GM/DL (14.0-18.0); Immature Granulocytes % 0.4 %; Immature Granulocytes Absolute 0.02 #; Lymphocytes # 0.9 10*3/uL (1.4-4.0); Lymphocytes % 18.8 % (21.2-54.2); Mean Corpuscular HGB Conc 32.7 GM/DL (32-36); Mean Corpuscular Hemoglobin 29 PG (27-34); Mean Corpuscular Volume 89.6 FL (87-102); Mean Platelet Volume 9.9 FL (9.6-12.0); Monocytes # 0.6 10*3/uL (0.11-0.8); Neutrophils # 3.3 10*3/uL (1.4-7.4); Neutrophils % 65.4 % (38.7-73.9); Platelet Count 210 T/CUMM (130-400); Red Blood Count 3.55 MC/CUMM (3.8-5.5); Red Cell Distribution Width 17.2 % (9.3-17.3)
[2016-11-09 07:38] LABS: Calcium 8.3 MG/DL (8.5-10.1); Magnesium 2.1 MG/DL (1.8-2.4); Potassium 4.5 MMOL/L (3.5-5.1)
[2016-11-09] MEDS: DULoxetine 30 MG CAPSULE PO SCH (09:16)
[2016-11-09] MEDS: PANTOPRAZOLE 40 MG TABLET PO SCH (09:16)
[2016-11-09] MEDS: TAMSULOSIN 0.4 MG CAPSULE PO SCH (09:16)
[2016-11-09] MEDS: INSULIN NPH/REGULAR 70/30 100 UNIT/ML SUBCUT SCH ×2 (09:17→17:12)
[2016-11-09] MEDS: INSULIN LISPRO 100 UNIT/ML SUBCUT SCH ×4 (09:17→21:03)
[2016-11-09] MEDS: GABAPENTIN 600 MG TABLET PO SCH ×3 (09:17→21:03)
[2016-11-09] MEDS: METOPROLOL TARTRATE 25 MG TABLET PO SCH ×2 (09:17→21:03)
[2016-11-09] MEDS: cefTRIAXone 1,000 MG in SODIUM CHLORIDE 0.9% 100 ML IV SCH (09:17)
--- NOTE | 2016-11-09 11:38 | Gastrointestinal Progress Note ---
<Veronika Coteher Sherry - Last Filed: 11/09/16 11:36> Assessment and Plan (1) Anemia Status: Acute Assessment and plan: 11/09-hemoglobin stable at 10.4. EGD findings noted on yesterday as well as CT findings noted as below. No further records from [facility] have been received yet. Tolerating diet. Plan an addendum follow Dr. Centeno. 11/07-hemoglobin holding in stable. No overt bleeding. Records from outside facility noted as below. Patient states he will proceed with EGD at this time. We will also work to obtain further records from prior inpatient stays at [facility]. Plan an addendum to followed by Dr. Centeno. 11/06-findings of anemia on admission with reports of hematemesis as well as hematochezia. Hemoglobin 9.2 units packed red blood cells. Complaints of abdominal pain with noncontrasted CT scan with no acute findings other than dilation of multiple loops of small intestines and wall thickening. Prior extensive workup at [facility]. Continue to monitor H&H and transfuse as needed. Reattempt to obtain medical records from [place]. Plan an addendum to follow Dr. Centeno. Current Visit: Yes Gastroenterology - PN: Subj Interval history: CC: Abdominal pain Patient is seen awake and alert lying in bed. States he had an uneventful night. He denies any abdominal pain at present time. Denies any nausea or vomiting. He is tolerating his diet well. Patient's EGD on yesterday with findings of GERD and small hiatal hernia. He also had a repeat CT scan with oral contrast with findings noted of absence of body and tail of the pancreas and no: Noted in the right abdomen. Patient states that he has no prior history of abdominal surgery of any kind that he can recall even as a baby. Abdomen is soft, nontender. Noted still have not received further records from [facility]. ROS: Denies shortness of breath or chest Exam (Progress Note) - Constitutional Vitals: Period Temp Pulse Resp BP Sys/Greene Pulse Ox Last 24 Hr 97.2 F-98.0 F 73-102 18-20 99-158/61-90 98-100 General appearance: normal weight, no acute distress - Head Head exam: Present: normal inspection, normocephalic - Eye Eye exam: Present: other (Lids and conjunctive are unremarkable). Absent: scleral icterus - ENT ENT exam: Present: normal exam, normal oropharynx - Neck Neck exam: Present: normal inspection - Respiratory Respiratory exam: Present: clear to auscultation bilaterally. Absent: rales, rhonchi, wheezes - Cardiovascular Cardiovascular exam: Present: regular rate and rhythm. Absent: diastolic murmur , JVD, systolic murmur - GI/Abdominal GI/Abdominal exam: Present: normal bowel sounds, soft. Absent: ascites, distended, mass, organomegaly, tenderness - Extremities Exam Extremities exam: Present: normal inspection, full ROM - Back Exam Back exam: Present: normal inspection - Neurological Exam Neurological exam: Present: alert, oriented X3 - Psychiatric Psychiatric exam: Present: normal affect, normal mood - Skin Skin exam: Present: normal color, warm, dry Results - Labs CBC & BMP: 11/09/16 05:36 11/09/16 05:36 Lab Results: I have reviewed the past 24 hour labs <Santiago Centeno - Last Filed: 11/09/16 17:25> Exam (Progress Note) - Constitutional Vitals: Period Temp Pulse Resp BP Sys/Greene Pulse Ox Last 24 Hr 97.2 F-98.2 F 73-102 18-20 99-136/61-82 98-100 Results - Labs CBC & BMP: 11/09/16 05:36 11/09/16 05:36
--- NOTE | 2016-11-09 13:48 | Case Mgmt Physician Query Form ---
TB Signs and Symptoms Screening ([place]) INSTRUCTIONS: To be completed annually on residents/staff with a significant Tuberculin Skin Test (TST) upon admission/hire or a prior significant TST. To be completed on all staff at hire. Please respond to each listed symptom with an (X) in either the "YES" or "NO" box. Do you currently have any of the following symptoms: YES NO ( ) (x ) A cough If yes, is it: ( ) Productive ( ) Non- productive ( ) (x ) Hemoptysis (spitting up blood) ( ) (x ) Chest pains ( ) (x ) Weight Loss ( ) (x ) Fever ( ) (x ) Night Sweats ( ) (x ) Weakness ( ) (x ) Loss of Appetite ( ) (x ) Difficulty Breathing If you answered YES" to any of the above questions, how long have symptoms been present? Comments: WILLIAM
--- NOTE | 2016-11-09 14:15 | Hospitalist Progress Note ---
Assessment and Plan (1) Anemia Status: Acute Assessment and plan: Received 2 units PRBCs EGD with GERD and small hiatal hernia Current Visit: Yes (2) GI bleeding Status: Acute Assessment and plan: GI assisting EGD with GERD and small hiatal hernia Current Visit: Yes (3) Abdominal pain Status: Acute Assessment and plan: Nonspecific, located throughout Lipase elevated on admission, pain is not consistent with pancreatits CT without contrast performed with nonspecific findings GI assisting EGD with GERD CT A/P with contrast Current Visit: Yes (4) Leg edema, left Status: Acute Assessment and plan: Reports that this started during his recent [facility] 2/2 systolic heart failure Lasix Current Visit: Yes (5) Type 1 diabetes mellitus Status: Acute Assessment and plan: Suppose to take humulin 70/30, 30 units BID Continue humulin 70/30, 10 units BID for now Patient now eating, will increase SSI Current Visit: Yes (6) Systolic heart failure Status: Acute Assessment and plan: Per [facility] records, ef 30-35 Daily weights, appears to be down ~3kg since admission BNP elevated from admission Will repeat his echo here Increased lasix, increase in creatinine, will decrease Current Visit: Yes (7) Hypertension Status: Acute Assessment and plan: Suppose to take metoprolol 25 BID and hydralazine 25 tid Continue metoprolol Current Visit: Yes (8) Acute kidney injury Status: Acute Assessment and plan: Secondary to lasix, decreasing Current Visit: Yes Hospitalist: Subjective Interval history: No acute events overnight. Main complaint is still of lower extremity edema. He has requested fdc placement and at discharge will go to [place]. Exam - Constitutional Vitals: Period Temp Pulse Resp BP Sys/Greene Pulse Ox Last 24 Hr 97.2 F-98.0 F 73-102 18-20 99-140/61-84 98-100 General appearance: normal weight - Head Head exam: Present: normocephalic, atraumatic - Eye Eye exam: Present: EOMI Pupils: Present: LINDSEY - ENT ENT exam: Present: normal exam - Neck Neck exam: Present: normal inspection - Respiratory Respiratory exam: Present: clear to auscultation bilaterally. Absent: wheezes - Cardiovascular Cardiovascular exam: Present: regular rate and rhythm - GI/Abdominal GI/Abdominal exam: Present: normal bowel sounds, soft. Absent: tenderness, rebound - Extremities Exam Extremities exam: Present: other (right bka) - Back Exam Back exam: Present: normal inspection - Neurological Exam Neurological exam: Present: alert, oriented X3 - Psychiatric Psychiatric exam: Present: normal affect, normal mood - Skin Skin exam: Present: warm, intact Results - Labs CBC & BMP: 11/09/16 05:36 11/09/16 05:36
--- NOTE | 2016-11-09 16:37 | ECHO Report ---
Jignesh Schumacher Exam Date: 11/09/2016 08:06 Referring Physician: Technologist: Migdalia Martin Age: 31 Ht (in): 69 Wt (lb): 241 Gender: M Exam Location: [facility] Echo Indications: abd. pain, pancreatitis, HTN, CHF, Type I Diabetes BP: 99 / 61 HR: 73 Rhythm: Sinus Technical Quality: Good IMPRESSIONS Mild - moderate concentric left ventricular hypertrophy with diastolic dysfunction. Moderately increased left ventricular cavity size. Moderately decreased left ventricular systolic function, left ventricular ejection fraction is estimated at 20-25%. Normal right ventricular systolic function. Moderately increased right atrial size. Moderately increased left atrial size. Mild mitral valve sclerosis. Mild mitral valve regurgitation. The aortic valve is trileaflet, delicate and has normal motion. Morphologically normal tricuspid valve. [id number] tricuspid valve regurgitation. Tricuspid regurgitation velocities suggest a PAP of 35 mmHg. Morphologically normal pulmonic valve. Trace pulmonary valve regurgitation. No pericardial effusion. Normal size aortic root and proximal ascending aorta. MEASUREMENTS (Male / Female) Normal Values 2D ECHO LV Diastolic Diameter PLAX 5.2 cm 4.2 - 5.9 / 3.9 - 5.3 cm LV Systolic Diameter PLAX 4.5 cm LV Fractional Shortening PLAX 14.5 % IVS Diastolic Thickness 1.0 cm 0.6 - 1.0 / 0.6 - 0.9 cm LVPW Diastolic Thickness 1.1 cm 0.6 - 1.0 / 0.6 - 0.9 cm RV Internal Dim ED PLAX 2.0 cm Aortic Root Diameter 2.3 cm LA Systolic Diameter LX 3.2 cm 3.0 - 4.0 / 2.7 - 3.8 cm DOPPLER TR Peak Velocity 252.0 cm/s TR Peak Gradient 25.4 mmHg FINDINGS Left Ventricle Mild - moderate concentric left ventricular hypertrophy with diastolic dysfunction. Moderately increased left ventricular cavity size. Moderately decreased left ventricular systolic function, left ventricular ejection fraction is estimated at 20-25%. Right Ventricle Normal right ventricular systolic function. Right Atrium Moderately increased right atrial size. Left Atrium Moderately increased left atrial size. Mitral Valve Mild mitral valve sclerosis. Mild mitral valve regurgitation. Aortic Valve The aortic valve is trileaflet, delicate and has normal motion. Tricuspid Valve Morphologically normal tricuspid valve. Dreh-[id number]-[id number] tricuspid valve regurgitation. Tricuspid regurgitation velocities suggest a PAP of 35 mmHg. Pulmonic Valve Morphologically normal pulmonic valve. Trace pulmonary valve regurgitation. Pericardium No pericardial effusion. Aorta Normal size aortic root and proximal ascending aorta. Daryl Waller MD (Electronically Signed) Final Date: 09 November 2016 16:35
[2016-11-09] MEDS: FUROSEMIDE 40 MG/4 ML VIAL IV SCH (17:12)
[2016-11-10] MEDS: INSULIN NPH/REGULAR 70/30 100 UNIT/ML SUBCUT SCH ×3 (01:55→17:42)
[2016-11-10 05:47] LABS: Basophils % 0.2 % (0.0-0.8); Eosinophils # 0.2 10*3/uL (0.0-0.87); Eosinophils % 3.9 % (0.00-10.9); Hemoglobin 9.8 GM/DL (14.0-18.0); Immature Granulocytes % 0.4 %; Immature Granulocytes Absolute 0.02 #; Lymphocytes # 1.6 10*3/uL (1.4-4.0); Lymphocytes % 35.5 % (21.2-54.2); Mean Corpuscular HGB Conc 33.8 GM/DL (32-36); Mean Corpuscular Hemoglobin 30 PG (27-34); Mean Corpuscular Volume 88.4 FL (87-102); Mean Platelet Volume 9.1 FL (9.6-12.0); Monocytes # 0.5 10*3/uL (0.11-0.8); Monocytes % 11.2 % (1.7-12.7); Neutrophils # 2.2 10*3/uL (1.4-7.4); Neutrophils % 48.8 % (38.7-73.9); Platelet Count 212 T/CUMM (130-400); Red Blood Count 3.28 MC/CUMM (3.8-5.5); White Blood Count 4.6 T/CUMM (4-12)
[2016-11-10 06:18] LABS: Calcium 8.2 MG/DL (8.5-10.1); Magnesium 1.9 MG/DL (1.8-2.4); Osmolality,Calculated 283.1 MOS/KG (273-304); Potassium 3.7 MMOL/L (3.5-5.1)
[2016-11-10] MEDS: INSULIN LISPRO 100 UNIT/ML SUBCUT SCH ×4 (08:22→23:25)
[2016-11-10] MEDS: FUROSEMIDE 40 MG/4 ML VIAL IV SCH ×2 (10:03→16:56)
[2016-11-10] MEDS: PANTOPRAZOLE 40 MG TABLET PO SCH (10:06)
[2016-11-10] MEDS: DULoxetine 30 MG CAPSULE PO SCH (10:06)
[2016-11-10] MEDS: GABAPENTIN 600 MG TABLET PO SCH ×3 (10:07→21:25)
[2016-11-10] MEDS: METOPROLOL TARTRATE 25 MG TABLET PO SCH (10:07)
[2016-11-10] MEDS: TAMSULOSIN 0.4 MG CAPSULE PO SCH (10:07)
[2016-11-10] MEDS: cefTRIAXone 1,000 MG in SODIUM CHLORIDE 0.9% 100 ML IV SCH (10:08)
--- NOTE | 2016-11-10 11:08 | Cardiology Consult Note ---
Missy Bueno April RN, am scribing for, and in the presence of, Philip Saavedra MD 10:56. Assessment and Plan - Time spent with patient Time spent with patient: Greater than 30 minutes (Due to assessment, planning, documentation, medication review) (1) Idiopathic cardiomyopathy Status: Acute Assessment and plan: This is probably of recent onset or at least probably chronic. He does not appear to be acute. Also does not appear to be ischemic. Echocardiographic abnormalities are consistent with this. We need to find more old records in regard to what is been evaluated previously. He gives a history of having endocarditis previously and there is mention of this specifically involving the tricuspid valve. Current Visit: Yes (2) Abdominal pain Status: Acute Assessment and plan: This is being evaluated by GI medicine. Current Visit: Yes (3) Anemia Status: Acute Assessment and plan: This is quite significant and he required blood transfusion this admission. This is being evaluated by GI medicine and primary service. This may be multifactorial. Current Visit: Yes (4) GI bleeding Status: Acute Assessment and plan: This may be source of his anemia. Is being evaluated by GI medicine. Current Visit: Yes (5) Hypertension Status: Chronic Assessment and plan: Blood pressure fairly stable at this time. He will need aggressive therapy for this with his cardiomyopathy. Current Visit: Yes History of Present Illness - Data of Consult Patient: new to practice Consult date: 11/10/16 Requesting Physician: Bg Molina - Consult Narrative Reason for consult: CHF History of present illness: Surveyor Rod Helper: New to cardiology Mr. Schumacher is a 31 year old male who is a poor historian. He reports he has never been seen by special education science teacher. He denies ever having had a heart catheterization or a stress test done. Records obtained from the [facility] in [place] ([facility]) with admission of 09/02/16 discharge date is 10/29/16. Records mention an ejection fraction of 30-35%, he states he is unaware of this. We do not have the echocardiogram report. Is also interesting that is mentioned he had acute kidney injury there as well. He also mentioned that he had nephrotic proteinuria. 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 Medical history includes IDDM and anemia, history of right BKA. Denies any other surgical history. Family history is positive for mother with diabetes and renal failure. He reports he smokes cigarettes occasionally. Also admits to occasional marijuana use. He was admitted to our facility November 05 for complaints of abdominal and lower extremity swelling. He says this has been ongoing since August, and he was in the hospital in [place] for this. It appears that lower extremity edema is really been going on for several months. He has had dyspnea on exertion since his BKA. Should be noted he does not exert himself to a significant level. He also reports he was having nausea, vomiting, and diarrhea with blood noted in his stool. He says that he was short of breath, but denies any chest pain. Chest x-ray on admission showed an infiltrate left lung base, he is on IV antibiotics. EKG on admission showed sinus rhythm with heart rate of 90. Lipase was noted to be 2564, blood sugar was 254, BUN/creatinine 21 and 1.4, BNP 263, H&H 8 and 25 (and dropped down to 6.9 and 21.9 before receiving blood) . Still was 4+ positive for occult blood. GI has seen the patient in consultation. EGD done November 08 showed GERD and small hiatal hernia. It was also noted that he was missing some of his right colon and the pancreas was abnormal. He denies any surgical history of trauma related to this. Echocardiogram was done in our facility November 08 with ejection fraction of 20-25% . We have been asked to see the patient in consultation. Mr. Schumacher is seen resting in bed in no acute distress. He reports shortness of breath at rest as well as with exertion, he does not appear tachypneic at this time. He denies any chest pain, however he does have some chest wall pain. He says one night since he has been here his blood sugar dropped down, he was unresponsive and they had to sternal rub him to get him alert. This has been sore since then. He says he continues to have nausea vomiting and diarrhea as well as abdominal pain. He says he continues to have both dark and bright red blood in his stool. He has had 2 units of blood since admission, his H&H is improved to 9.8 and 29.0 today. His kidney function is elevated with creatinine 1.5 today. Electrolytes are unremarkable. His Lasix has been decreased to 40 mg IV twice daily. He states the swelling has improved. I have personally reviewed the patient as well as examined him. Shortness been reviewed. I discussed this case with Riri Louis RN. I agree with the above and have reviewed. Patient has more records that we do not have in regard to his cardiac issues. We need try to obtain those. His biggest issues from our standpoint as his cardiomyopathy. We need to treat this aggressively managed from a medical standpoint. He does not have any ischemic symptomatology nor does he have findings echocardiogram consistent with such. We will maximize his medications for the cardiomyopathy. He also has hyperlipidemia anemia and proteinuria. Outside records indicate he has nephrotic syndrome. He does have elevated creatinine. CC: Bg Molina MD - Home Medications and Allergies Home Medications: Home Medications Medication Instructions Recorded Confirmed Type Chlorhexidine 4% Soln [Hibiclens] 1 applic TOP DAILY topical 08/06/15 11/05/16 Rx solution HYDROcodone/ACETAMIN 7.5-325 1 tablet PO Q4H PRN #30 tablet 08/06/15 11/05/16 Rx [[place] 7.5-325] Nicotine 21 mg/24 Hr Patch 1 patch TRANSDERM DAILY PRN #20 08/06/15 11/05/16 Rx [Nicoderm CQ 21 mg/24 hr Patch] patch Sodium Hypochlorite 0.25% Irr 1 applic TOP DAILY irrigation 08/06/15 11/05/16 Rx [Dakins 1/2 Strength 0.25% Soln] Ciprofloxacin Tab [Cipro Tab] 500 mg PO BID #14 tablet 08/09/15 11/05/16 Rx Skin Healing Oint (Aquaphor) 1 applic TOP PRN PRN #0 ointment 08/09/15 11/05/16 Rx [Aquaphor] Clindamycin Cap [Cleocin Cap] 300 mg PO Q6HR #28 capsule 02/23/16 11/05/16 Rx Fluticasone 50 Mcg Nasal [place] 2 spray BOTH NARES DAILY 11/05/16 11/05/16 History [Flonase Nasal [place]] Gabapentin Cap/Tab [Neurontin 600 mg PO TID 11/05/16 11/05/16 History Cap/Tab] Insulin Detemir [Levemir] 10 unit SUBCUT DAILY 11/05/16 11/05/16 History Allergies/Adverse Reactions: Allergies Allergy/AdvReac Type Severity Reaction Status Date / Time No Known Allergies Allergy Verified 08/21/14 10:03 - Constitutional Constitutional: Present: as per HPI - EENT Eyes: Present: blurry vision, requires corrective lense. Absent: other Ears: Absent: decreased hearing, ear pain Nose, mouth and throat: Absent: epistaxis, headache(s), neck pain - Cardiovascular Cardiovascular: Present: dyspnea, dyspnea on exertion, edema, lightheadedness. Absent: chest pain at rest, chest pain with activity, diaphoresis, radiating jaw , neck or arm pain, orthopnea, palpitations - Respiratory Respiratory: Present: dyspnea, dyspnea on exertion. Absent: cough, hemoptysis, wheezing - Gastrointestinal Gastrointestinal: Present: abdominal pain, diarrhea, hematochezia, melena, nausea, vomiting. Absent: constipation - Genitourinary Genitourinary: Absent: dysuria, hematuria - Musculoskeletal Musculoskeletal: Present: limited range of motion, muscle weakness - Neurological Neurological: Present: abnormal gait, dizziness. Absent: abnormal speech, confusion, focal weakness, frequent falls, headache(s), syncope - Psychiatric Psychiatric: Absent: anxiety, depression - Endocrine Endocrine: Present: fatigue - Hematologic/Lymphatic Hematologic/Lymphatic: Present: easy bleeding. Absent: easy bruising Medical,Surgical,& Family Hx - Medical History Cardio: History of: CHF Endocrine: History of: Diabetes Mellitus (IDDM) Musculoskeletal: History of: Amputation (right bka) - Surgical History Orthopedic Surgeries: Surgical HX of;: Orthopedic Surgery (Right BKA) - Family History Family History: Reports;: Family Diabetes (mother) - Social History Smoking Status: Current some day smoker Have you smoked in the last 12 months: Yes Time spent discussing smoking cessation with patient: 3 to 10 minutes Frequency of Alcohol Use: None Type of Drug Use: Marijuana Marital Status: Single Lives With:: Parent Functional capacity: uses cane/walker (He has a prosthesis) Physical Examination Vital Signs Temp Pulse Resp BP Pulse Ox 97.8 F 103 H 20 124/92 100 11/05/16 06:12 11/05/16 06:12 11/05/16 06:12 11/05/16 06:12 11/05/16 06:12 General: Present: Appears Well, No Apparent Distress HEENT: Present: PERRL, Mucus Membranes Moist Neck: Present: Supple Neck, Midline Trachea, No Bruit Cardiac: Present: Reg Rate and Rhythm, No Murmur Lungs: Present: Normal Breath Sounds, No Wheeze, Rales, Rhonchi Neuro: Present: Other (No focal deficits). Absent: Resting Tremor, Essential Tremor Abdomen: Present: Soft, Active Bowel Sounds, Tender (Epigastric direct tenderness) Skin: Absent: Rash, Suspicious Lesions Musculoskeletal: Present: Normal Range of Motion Gait: Present: Poor Gait (Related to his right BKA with prosthesis) Extremities: Present: Normal Upper Extr. Pulses, Normal Lower Extr. Pulses, +1 Edema (Left lower leg.), Other (right BKA). Absent: Normal Gait Other: Psychiatric: He appears to be cognitively normal. Mental status is stable. Result/EKG - Labs CBC & BMP: 11/10/16 05:27 11/10/16 05:27 Lab Results: I have reviewed the past 24 hour labs Labs: Laboratory Results - last 24 hr 11/09/16 11/09/16 11/09/16 11:35 16:03 20:58 WBC RBC Hgb Hct MCV MCH MCHC RDW Plt Count MPV Neut % (Auto) Lymph % (Auto) [place] % (Auto) Eos % (Auto) Baso % (Auto) Neut # (Auto) Lymph # (Auto) [place] # (Auto) Eos # (Auto) Baso # (Auto) Immature Gran % Nucleated RBC % Immature Gran # Nucleated RBCs # Sodium Potassium Chloride Carbon Dioxide Anion Gap BUN Creatinine GFR Calculation BUN/Creatinine Ratio Glucose POC Glucose 236 H 177 H 107 H Calculated Osmolality Calcium Magnesium 11/10/16 11/10/16 11/10/16 01:10 05:27 05:27 WBC 4.6 RBC 3.28 L Hgb 9.8 L Hct 29.0 L MCV 88.4 MCH 30 MCHC 33.8 RDW 17.0 Plt Count 212 MPV 9.1 L Neut % (Auto) 48.8 Lymph % (Auto) 35.5 [place] % (Auto) 11.2 Eos % (Auto) 3.9 Baso % (Auto) 0.2 Neut # (Auto) 2.2 Lymph # (Auto) 1.6 [place] # (Auto) 0.5 Eos # (Auto) 0.2 Baso # (Auto) 0.0 Immature Gran % 0.4 Nucleated RBC % 0.0 Immature Gran # 0.02 Nucleated RBCs # 0.00 Sodium 142 Potassium 3.7 Chloride 115 H Carbon Dioxide 15 L Anion Gap 15.7 H BUN 12 Creatinine 1.50 H GFR Calculation 71 BUN/Creatinine Ratio 8.00 Glucose 118 H POC Glucose 151 H Calculated Osmolality 283.1 Calcium 8.2 L Magnesium 1.9 11/10/16 11/10/16 05:45 08:22 WBC RBC Hgb Hct MCV MCH MCHC RDW Plt Count MPV Neut % (Auto) Lymph % (Auto) [place] % (Auto) Eos % (Auto) Baso % (Auto) Neut # (Auto) Lymph # (Auto) [place] # (Auto) Eos # (Auto) Baso # (Auto) Immature Gran % Nucleated RBC % Immature Gran # Nucleated RBCs # Sodium Potassium Chloride Carbon Dioxide Anion Gap BUN Creatinine GFR Calculation BUN/Creatinine Ratio Glucose POC Glucose 123 H 42 L* Calculated Osmolality Calcium Magnesium - Impressions Impressions: ECG dated 11/05/16 with sinus rhythm with left ventricular hypertrophy. There is some lateral ST T abnormalities that may be related to LVH. There are no acute changes otherwise. Echocardiogram interpreted by Dr. Waller with mild to moderate left ventricular hypertrophy and diastolic dysfunction with ejection fraction 20-25% with dilation the left ventricular cavity. Right and left atria were moderately dilated with sclerosing of the mitral valve normal right-sided pressures. - Diagnostic Findings Procedure: Chest x-ray: report reviewed by me - EKG EKG results: interpreted by me EKG shows: sinus rhythm Quentin Bueno John Timothy, MD, personally performed the services described in this documentation, ascribed by Riri Louis RN in my presence, and it is both accurate and complete .
--- NOTE | 2016-11-10 15:31 | Hospitalist Progress Note ---
Assessment and Plan (1) Anemia Status: Acute Assessment and plan: Received 2 units PRBCs EGD with GERD and small hiatal hernia Stable now Current Visit: Yes (2) GI bleeding Status: Acute Assessment and plan: GI assisting EGD with GERD and small hiatal hernia Current Visit: Yes (3) Abdominal pain Status: Acute Assessment and plan: Nonspecific, located throughout Lipase elevated on admission, pain is not consistent with pancreatits CT without contrast performed with nonspecific findings GI assisting EGD with GERD CT A/P with contrast with what appears to be congenital changes Current Visit: Yes (4) Leg edema, left Status: Acute Assessment and plan: Reports that this started during his recent admission at [facility] 2/2 systolic heart failure Lasix Current Visit: Yes (5) Type 1 diabetes mellitus Status: Acute Assessment and plan: Suppose to take humulin 70/30, 30 units BID Patient with hypoglycemia early this am Insulin decreased to 5 units bid SSI Current Visit: Yes (6) Systolic heart failure Status: Acute Assessment and plan: Per [facility] records, ef 30-35 Daily weights, appears to be down ~3kg since admission Echo here with EF 20-25% Cardiology consulted, adjusted medications Lasix 40 IV BID His creatinine appears to be very gentle to lasix Current Visit: Yes (7) Hypertension Status: Chronic Assessment and plan: Started on coreg and losartan Current Visit: Yes (8) Acute kidney injury Status: Acute Assessment and plan: Secondary to lasix Monitor closely Current Visit: Yes Hospitalist: Subjective Interval history: Complaining of some GI upset after drinking glucerna. Feels that his lower extremity edema is improving. Exam - Constitutional Vitals: Period Temp Pulse Resp BP Sys/Greene Pulse Ox Last 24 Hr 9.2 F-98.2 F 86-93 16-22 97-149/57-97 92-100 General appearance: normal weight - Head Head exam: Present: normocephalic, atraumatic - Eye Eye exam: Present: EOMI Pupils: Present: LINDSEY - ENT ENT exam: Present: normal exam - Neck Neck exam: Present: normal inspection - Respiratory Respiratory exam: Present: clear to auscultation bilaterally - Cardiovascular Cardiovascular exam: Present: regular rate and rhythm - GI/Abdominal GI/Abdominal exam: Present: normal bowel sounds - Extremities Exam Extremities exam: Present: edema (right bka) - Back Exam Back exam: Present: normal inspection - Neurological Exam Neurological exam: Present: alert, oriented X3 - Psychiatric Psychiatric exam: Present: normal affect, normal mood - Skin Skin exam: Present: warm, intact Results - Labs CBC & BMP: 11/10/16 05:27 11/10/16 05:27
[2016-11-10] MEDS: CARVEDILOL 6.25 MG TABLET PO SCH (17:06)
[2016-11-10] MEDS: ONDANSETRON 4 MG/2 ML VIAL IV PRN (17:09)
[2016-11-11 05:32] LABS: Calcium 8.7 MG/DL (8.5-10.1); Osmolality,Calculated 284.1 MOS/KG (273-304); Potassium 4.8 MMOL/L (3.5-5.1)
[2016-11-11] MEDS: CARVEDILOL 6.25 MG TABLET PO SCH ×2 (08:22→17:30)
[2016-11-11] MEDS: FUROSEMIDE 40 MG/4 ML VIAL IV SCH ×2 (08:22→17:29)
[2016-11-11] MEDS: INSULIN NPH/REGULAR 70/30 100 UNIT/ML SUBCUT SCH ×2 (09:20→17:32)
[2016-11-11] MEDS: INSULIN LISPRO 100 UNIT/ML SUBCUT SCH ×4 (09:21→23:41)
[2016-11-11] MEDS: TAMSULOSIN 0.4 MG CAPSULE PO SCH (09:25)
[2016-11-11] MEDS: LOSARTAN 25 MG TABLET PO SCH (09:25)
[2016-11-11] MEDS: GABAPENTIN 600 MG TABLET PO SCH ×3 (09:26→23:42)
[2016-11-11] MEDS: PANTOPRAZOLE 40 MG TABLET PO SCH (09:27)
[2016-11-11] MEDS: DULoxetine 30 MG CAPSULE PO SCH (09:27)
[2016-11-11] MEDS: cefTRIAXone 1,000 MG in SODIUM CHLORIDE 0.9% 100 ML IV SCH (09:28)
--- NOTE | 2016-11-11 10:47 | Cardiology Progress Note ---
Assessment and Plan (1) Idiopathic cardiomyopathy Status: Acute Assessment and plan: This may be of recent onset but certainly not acute. He will need medical therapy maximizes he will tolerate. Future evaluation to see if he maintains a low cardiac output/ejection fraction and the possibility of future of AICD. At present he would not be a candidate for biventricular pacing with his narrow QRS complex. Current Visit: Yes (2) Abdominal pain Status: Acute Assessment and plan: This is being evaluated by GI medicine. Current Visit: Yes (3) Anemia Status: Acute Assessment and plan: This is quite significant and he required blood transfusion this admission. Current Visit: Yes (4) GI bleeding Status: Acute Assessment and plan: This may be source of his anemia. Is being evaluated by GI medicine. Current Visit: Yes (5) Hypertension Status: Chronic Assessment and plan: Blood pressure fairly stable at this time. He will need aggressive therapy for this with his cardiomyopathy. Current Visit: Yes Cardiology - PN: Subj Interval history: Patient doing is doing fairly well. He is trying to ambulate some but gets dyspneic on exertion. He does not have any chest pain PND orthopnea. He states the edema of his left leg is getting better. He has not had any palpitations. Today's chemistries are fairly unremarkable his creatinine is 1.91 his BUN is 15. Certainly he has furosemide diuresis may be exacerbating this but I would be surprised if this is the culprit the BUN is staying stable. Also certain his losartan may exacerbate this this was just started this morning. We will need to monitor his creatinine while he is on the losartan. His blood pressures are fairly stable. We will try to maximize his medications as he will tolerate. Exam (Progress Note) - Constitutional Vitals: Period Temp Pulse Resp BP Sys/Greene Pulse Ox Last 24 Hr 97.1 F-98.6 F 79-101 16-22 100-149/55-88 98-100 Exam: General appearance: Thin, no acute distress, is up about the room on my arrival. HEENT exam: normal inspection, atraumatic Neck exam: normal inspection no JVD. No carotid bruit. Trachea is in midline Respiratory/lungs exam: clear to auscultation bilaterally good air movement. Cardiovascular exam: regular rate and rhythm, no murmur or gallop or rub. Chest wall exam: nontender GI/Abdominal exam: normal bowel sounds, soft, nontender, no abdominal bruits or pulsatile masses. Extremeties/musculoskeletal: Right BKA, trace edema of his lower left leg. Neurological exam: alert, oriented X3, no focal deficits Psychiatric exam: normal affect, normal mood. Cognitive function is grossly normal. Skin exam: warm Result/EKG - Labs CBC & BMP: 11/10/16 05:27 11/11/16 03:13 Lab Results: I have reviewed the past 24 hour labs (Creatinine is increased.) Labs: Laboratory Results - last 24 hr 11/10/16 11/10/16 11/10/16 11:17 17:04 22:58 Sodium Potassium Chloride Carbon Dioxide Anion Gap BUN Creatinine GFR Calculation BUN/Creatinine Ratio Glucose POC Glucose 170 H 364 H 314 H Calculated Osmolality Calcium Magnesium 11/11/16 11/11/16 11/11/16 03:13 04:26 08:07 Sodium 142 Potassium 4.8 Chloride 116 H Carbon Dioxide 15 L Anion Gap 15.8 H BUN 15 Creatinine 1.90 H GFR Calculation 53 BUN/Creatinine Ratio 7.00 Glucose 111 H POC Glucose 162 H 187 H Calculated Osmolality 284.1 Calcium 8.7 Magnesium 2.0
--- NOTE | 2016-11-11 11:55 | Hospitalist Progress Note ---
Assessment and Plan (1) Pancreatitis Status: Acute Assessment and plan: Impression: 1. Abdominal pain, possibly pancreatitis 2. Probable acute on chronic systolic congestive heart failure 3. Diabetes mellitus, unknown type 4. Chronic loose stools, likely multifactorial Plan: Continue current care. Some of his symptoms may be medication induced; we will discuss medication revision with the patient. We are still awaiting records from [place] regarding the congenital abnormalities that were discovered on the CT. We appreciate the assistance of the consultants. This note was completed using [employer] voice recognition software. There may be computational mathematician errors as a result. Current Visit: Yes Qualifiers: Chronicity: acute Pancreatitis type: unspecified pancreatitis type Acute pancreatitis complication: no infection or necrosis Qualified Code(s): K85.90 - Acute pancreatitis without necrosis or infection, unspecified Hospitalist: Subjective Interval history: Follow-up abdominal pain with GI bleed, chronic systolic congestive heart failure, diabetes mellitus, type not known, and possible pancreatitis. The patient has been diabetic for over 10 years. He says that it runs in his family. He says that he has variably been diagnosed as either type I or type II. He had been on metformin, and had this discontinued because it "made him feel bad." Subsequent to discontinuing the metformin, he says that he has had loose stools ever since. He has had some persistent abdominal pain. He apparently had some GI bleeding, with gastritis at endoscopy. He reports some tiny pustules on his anterior and posterior chest wall that have just recently popped up. These are nonpruritic. He also was apparently recently diagnosed with congestive heart failure, likely acute on chronic systolic failure Exam - Constitutional Vitals: Period Temp Pulse Resp BP Sys/Greene Pulse Ox Last 24 Hr 97.1 F-98.6 F 79-101 16-22 100-149/55-88 98-100 Vital signs are noted above. Heart is regular with a soft systolic murmur. I do not hear a gallop. Lungs are clear with no rales or wheezes. Abdomen is soft without any mass. Skin reveals multiple small pustules that are only the size of a pinhead. They look like milia, but the location is not typical. He is awake and alert Results - Labs CBC & BMP: 11/10/16 05:27 11/11/16 03:13 Lab Results: I have reviewed the past 24 hour labs (He appears to have a chronic metabolic acidosis.)
[2016-11-12 05:55] LABS: Calcium 8.1 MG/DL (8.5-10.1); Magnesium 2.1 MG/DL (1.8-2.4); Osmolality,Calculated 283.5 MOS/KG (273-304); Potassium 5.3 MMOL/L (3.5-5.1)
--- NOTE | 2016-11-12 07:33 | Cardiology Progress Note ---
Assessment and Plan (1) Idiopathic cardiomyopathy Status: Chronic Assessment and plan: This may be of recent onset but certainly not acute. He will need medical therapy maximizes he will tolerate. Future evaluation to see if he maintains a low cardiac output/ejection fraction and the possibility of future of AICD. At present he would not be a candidate for biventricular pacing with his narrow QRS complex. He has been creatinine are elevated and his chest x-ray is clear. I think we need to hold on his diuretic especially his pressures being down just a little bit. Current Visit: Yes (2) Abdominal pain Status: Acute Assessment and plan: He is complaining of some diarrhea as well. Current Visit: Yes (3) Anemia Status: Acute Assessment and plan: This is being followed by the primary service. Current Visit: Yes (4) GI bleeding Status: Acute Assessment and plan: This may be source of his anemia. Is being evaluated by GI medicine. Presently appears to be stable. Current Visit: Yes (5) Hypertension Status: Chronic Assessment and plan: Blood pressure fairly stable at this time and effectively on the low side. Current Visit: Yes (6) Acute kidney injury Status: Acute Assessment and plan: He has been creatinine are increasing some this may be secondary to his diuresis to Lasix for now. He has lab already ordered for tomorrow for follow- up. Current Visit: Yes Cardiology - PN: Subj Interval history: Patient is biggest complaints this morning is having diarrhea. This persistent issue for the patient. From a cardiac standpoint he still has some dyspnea on exertion in fact though is been walking throughout the hospital. I saw him last night at the [facility] area going into the parking garage. He had been walking with his walker and prosthesis. He denies any chest pain. He does not have any shortness of breath unless he is ambulating. Certainly he is cardiomyopathy which is severe can contribute to this. He is not having though any chest pain, PND or nor orthopnea. Chest x-ray this morning looks good with normal cardiac size and lung burton clear. Do await the official report from the radiologist. His other multiple problems including that of a history of possible tricuspid valve endocarditis treated at [facility] as well as his diabetes, GI issues and complaints as well as anemia and hypertension. His hypertension is been fairly well managed. Please see our note of 11/10/16 for other details. We still await some cardiac records from [facility] they have not yet been sent. He apparently has some other cardiac studies that we have not received reports of. From a cardiac standpoint though he should be able to be follow-up as an outpatient. Exam (Progress Note) - Constitutional Vitals: Period Temp Pulse Resp BP Sys/Greene Pulse Ox Last 24 Hr 96.1 F-98.6 F 84-102 16-22 90-128/46-76 95-100 Exam: General appearance: Thin, no acute distress, is lying flat in bed on arrival to his room. HEENT exam: normal inspection, atraumatic Neck exam: normal inspection no JVD. No carotid bruit. Trachea is in midline Respiratory/lungs exam: clear to auscultation bilaterally good air movement. Cardiovascular exam: regular rate and rhythm, no murmur or gallop or rub. Chest wall exam: nontender GI/Abdominal exam: normal bowel sounds, soft, nontender, no abdominal bruits or pulsatile masses. Extremeties/musculoskeletal: Right BKA, no edema. Neurological exam: alert, oriented X3, no focal deficits Psychiatric exam: normal affect, normal mood. Cognitive function is grossly normal. Skin exam: warm Result/EKG - Labs CBC & BMP: 11/10/16 05:27 11/12/16 05:17 Lab Results: I have reviewed the past 24 hour labs (His potassium is elevated some today with assistance chloride. His bicarb is down. His BUN and creatinine are elevated) Labs: Laboratory Results - last 24 hr 11/11/16 11/11/16 11/11/16 08:07 11:29 16:33 Sodium Potassium Chloride Carbon Dioxide Anion Gap BUN Creatinine GFR Calculation BUN/Creatinine Ratio Glucose POC Glucose 187 H 139 H 298 H Calculated Osmolality Calcium Magnesium 11/11/16 11/11/16 11/12/16 18:48 20:52 05:17 Sodium 139 Potassium 5.3 H Chloride 116 H Carbon Dioxide 13 L Anion Gap 15.3 H BUN 25 H Creatinine 2.20 H GFR Calculation 43 BUN/Creatinine Ratio 11.00 Glucose 155 H POC Glucose 380 H 228 H Calculated Osmolality 283.5 Calcium 8.1 L Magnesium 2.1
[2016-11-12] MEDS: INSULIN NPH/REGULAR 70/30 100 UNIT/ML SUBCUT SCH ×2 (08:10→16:35)
[2016-11-12] MEDS: LOSARTAN 25 MG TABLET PO SCH (08:12)
[2016-11-12] MEDS: DULoxetine 30 MG CAPSULE PO SCH (08:12)
[2016-11-12] MEDS: TAMSULOSIN 0.4 MG CAPSULE PO SCH (08:12)
[2016-11-12] MEDS: CARVEDILOL 6.25 MG TABLET PO SCH ×2 (08:13→16:35)
[2016-11-12] MEDS: GABAPENTIN 600 MG TABLET PO SCH ×3 (08:13→22:43)
[2016-11-12] MEDS: PANTOPRAZOLE 40 MG TABLET PO SCH (08:14)
[2016-11-12] MEDS: cefTRIAXone 1,000 MG in SODIUM CHLORIDE 0.9% 100 ML IV SCH (08:16)
[2016-11-12] MEDS: INSULIN LISPRO 100 UNIT/ML SUBCUT SCH ×4 (08:35→22:43)
--- NOTE | 2016-11-12 11:17 | XRay Report ---
XR chest 2V Date: 11/12/2016 4:00 AM History: Shortness of breath, CHF Comparison: 11/05/2016 Technique: PA and lateral chest Findings: The heart is smaller in size and compressed by the over expanded lungs. Residual atelectasis/infiltration in the lingula with ill-defined density. Stable mediastinum and osseous structures. Impression: The lungs are more overexpanded which can be seen with reactive airway disease, deep inspiration, etc. Progressive atelectasis/infiltration in the lingula with indeterminant pulmonary opacity noted on the lateral film. Follow-up chest x-ray is recommended to document clearing. PROCEDURE INTERPRETED AT [facility] DEPARTMENT OF RADIOLOGY Final Report Signed by: Dr. Veronica Gordillo
--- NOTE | 2016-11-12 12:03 | Hospitalist Progress Note ---
Assessment and Plan (1) Pancreatitis Status: Acute Assessment and plan: Impression: 1. Abdominal pain, possibly pancreatitis 2. Probable acute on chronic systolic congestive heart failure 3. Diabetes mellitus, unknown type 4. Chronic loose stools, likely multifactorial, and worse today 5. 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 Acute kidney injury, likely diuretic induced Plan: Cardiology has already discontinued the diuretics. Continue IV fluids and watch creatinine. Recheck stool for C. difficile, and begin Imodium. Check aldosterone and renin levels, and also ABGs. This note was completed using [employer] voice recognition software. There may be international logistics coordinator errors as a result. Current Visit: Yes Qualifiers: Chronicity: acute Pancreatitis type: unspecified pancreatitis type Acute pancreatitis complication: no infection or necrosis Qualified Code(s): K85.90 - Acute pancreatitis without necrosis or infection, unspecified Hospitalist: Subjective Interval history: Follow-up acute on chronic systolic congestive heart failure, acute kidney injury, chronic diarrhea, diabetes mellitus. The patient reports some bilateral flank pain and abdominal pain, which he says is worsened over the past day or so. He is also noted worsening of his chronic diarrhea. He had a negative C. difficile test earlier in the hospitalization. His creatinine continues to climb. Cardiology has already discontinued the diuretics. He has had 2 CT scans of the abdomen that did not note any abnormalities related to the kidneys or ureters. He has no prior history of any kidney stones. Exam - Constitutional Vitals: Period Temp Pulse Resp BP Sys/Greene Pulse Ox Last 24 Hr 96.1 F-98.2 F 84-102 18-22 90-116/46-71 95-100 Vital signs are noted above. Heart is regular with a soft systolic murmur no gallop. Lungs are fairly clear. Flanks are tender to palpation. Abdomen is likewise sore. He continues with skin lesions consistent with milia He is awake and alert Results - Labs CBC & BMP: 11/10/16 05:27 11/12/16 05:17 Lab Results: I have reviewed the past 24 hour labs (He continues to exhibit a metabolic acidosis suggestive of type IV RTA)
[2016-11-12 13:50] LABS: Pt O2 Delivery Device Room Air
[2016-11-12 13:51] LABS: ABG Base Excess -16.2 MMOL/L (-2.5-2.5); ABG HCO3 12.1 MMOL/L (20-26); ABG PCO2 33.5 MM HG (35-48); ABG PO2 62.9 MM HG (80-95); ABG TCO2 11.1 MMOL/L (23-27)
[2016-11-12 13:52] LABS: ABG PH 7.153 (7.35-7.45)
[2016-11-12] MEDS: SODIUM BICARBONATE 650 MG TABLET PO SCH ×2 (16:35→22:43)
[2016-11-12] MEDS: LOPERAMIDE 2 MG CAPSULE PO PRN (16:46)
[2016-11-12] MEDS: TRIAMCINOLONE 0.1% CREAM 15 GM TUBE TOP SCH (22:43)
[2016-11-13] MEDS: ONDANSETRON 4 MG/2 ML VIAL IV PRN (04:34)
[2016-11-13] MEDS: LOPERAMIDE 2 MG CAPSULE PO PRN ×2 (04:40→17:28)
[2016-11-13 06:45] LABS: Calcium 8.4 MG/DL (8.5-10.1); Magnesium 2.1 MG/DL (1.8-2.4); Osmolality,Calculated 284.5 MOS/KG (273-304)
[2016-11-13 06:46] LABS: Osmolality,Calculated 282.7 MOS/KG (273-304); Potassium 5.1 MMOL/L (3.5-5.1)
[2016-11-13] MEDS: INSULIN LISPRO 100 UNIT/ML SUBCUT SCH ×4 (08:26→22:01)
[2016-11-13] MEDS: INSULIN NPH/REGULAR 70/30 100 UNIT/ML SUBCUT SCH ×2 (08:44→17:24)
[2016-11-13] MEDS: cefTRIAXone 1,000 MG in SODIUM CHLORIDE 0.9% 100 ML IV SCH (08:44)
[2016-11-13] MEDS: GABAPENTIN 600 MG TABLET PO SCH ×3 (08:45→22:01)
[2016-11-13] MEDS: PANTOPRAZOLE 40 MG TABLET PO SCH (08:45)
[2016-11-13] MEDS: DULoxetine 30 MG CAPSULE PO SCH (08:45)
[2016-11-13] MEDS: CARVEDILOL 6.25 MG TABLET PO SCH ×2 (08:46→17:24)
[2016-11-13] MEDS: SODIUM BICARBONATE 650 MG TABLET PO SCH ×3 (08:46→22:00)
[2016-11-13] MEDS: LOSARTAN 25 MG TABLET PO SCH (08:46)
[2016-11-13] MEDS: TAMSULOSIN 0.4 MG CAPSULE PO SCH (08:46)
[2016-11-13] MEDS: TRIAMCINOLONE 0.1% CREAM 15 GM TUBE TOP SCH ×2 (08:46→22:02)
--- NOTE | 2016-11-13 10:20 | Gastrointestinal Progress Note ---
<OneilkhalifKim Sherry - Last Filed: 11/13/16 10:17> Assessment and Plan (1) Anemia Status: Acute Assessment and plan: 11/13-no recent H&H recheck. Will order this today. No overt bleeding. Plan an addendum to follow by Dr. Centeno. 11/09-hemoglobin stable at 10.4. EGD findings noted on yesterday as well as CT findings noted as below. No further records from [facility] have been received yet. Tolerating diet. Plan an addendum follow Dr. Centeno. 11/07-hemoglobin holding in stable. No overt bleeding. Records from outside facility noted as below. Patient states he will proceed with EGD at this time. We will also work to obtain further records from prior inpatient stays at [facility]. Plan an addendum to followed by Dr. Centeno. 11/06-findings of anemia on admission with reports of hematemesis as well as hematochezia. Hemoglobin 9.2 units packed red blood cells. Complaints of abdominal pain with noncontrasted CT scan with no acute findings other than dilation of multiple loops of small intestines and wall thickening. Prior extensive workup at [facility]. Continue to monitor H&H and transfuse as needed. Reattempt to obtain medical records from [place]. Plan an addendum to follow Dr. Centeno. Current Visit: Yes (2) Abdominal pain Status: Acute Assessment and plan: 11/13-lower abdominal soreness/tenderness with diarrhea upwards of 4-5 episodes daily with negative C. difficile 2 continue to monitor at this time. Plan an addendum to followed by Dr. Centeno. Current Visit: Yes Gastroenterology - PN: Subj Interval history: CC: Diarrhea, anemia Patient is seen awake and alert. States he had an uneventful night. He does report over the weekend he has had increased diarrhea up to 4-5 episodes a day. He states that one episode that will last 30-45 minutes at a time. He is complaining of some lower abdominal soreness/tenderness since onset of the diarrhea. He also is complaining of some flank pain he continues to be treated for his UTI.. He has been negative 2 on his Clostridium difficile. Abdomen is soft, mild tenderness palpation. ROS: Denies shortness of breath or chest pain Exam (Progress Note) - Constitutional Vitals: Period Temp Pulse Resp BP Sys/Greene Pulse Ox Last 24 Hr 97.8 F-99.3 F 67-95 18-22 105-126/56-72 95-100 General appearance: normal weight, no acute distress - Head Head exam: Present: normal inspection, normocephalic - Eye Eye exam: Present: other (Lids and conjunctive are unremarkable). Absent: scleral icterus - ENT ENT exam: Present: normal exam, normal oropharynx - Neck Neck exam: Present: normal inspection - Respiratory Respiratory exam: Present: clear to auscultation bilaterally. Absent: rales, rhonchi, wheezes - Cardiovascular Cardiovascular exam: Present: regular rate and rhythm. Absent: diastolic murmur , JVD, systolic murmur - GI/Abdominal GI/Abdominal exam: Present: normal bowel sounds, soft. Absent: ascites, distended, mass, organomegaly, tenderness - Extremities Exam Extremities exam: Present: normal inspection, full ROM - Back Exam Back exam: Present: normal inspection - Neurological Exam Neurological exam: Present: alert, oriented X3 - Psychiatric Psychiatric exam: Present: normal affect, normal mood - Skin Skin exam: Present: normal color, warm, dry Results - Labs CBC & BMP: 11/10/16 05:27 11/13/16 05:52 Lab Results: I have reviewed the past 24 hour labs <Santiago Centeno - Last Filed: 11/13/16 20:38> Exam (Progress Note) - Constitutional Vitals: Period Temp Pulse Resp BP Sys/Greene Pulse Ox Last 24 Hr 97.8 F-98.4 F 67-110 18-22 105-143/58-86 95-100 Results - Labs CBC & BMP: 11/10/16 05:27 11/13/16 05:52
--- NOTE | 2016-11-13 13:38 | Cardiology Progress Note ---
Charly Bueno Vanessa, RN, am scribing for, and in the presence of, Regan Lopez MD 13:37. Assessment and Plan - Time spent with patient Time spent with patient: Greater than 30 minutes (1) Idiopathic cardiomyopathy Status: Chronic Assessment and plan: LV ejection fraction 20-25%. Maximize medical therapy at this time. He may be a candidate for AICD implant in the future. Current Visit: Yes (2) Systolic heart failure Status: Acute Assessment and plan: At this time, clinically he appears to be fairly well compensated without overt s/s heart failure. Current Visit: Yes (3) Anemia Status: Acute Assessment and plan: Stable. Continue to monitor. Current Visit: Yes (4) Pancreatitis Status: Acute Assessment and plan: This is being managed narrative medical management Current Visit: Yes Qualifiers: Chronicity: acute Pancreatitis type: unspecified pancreatitis type Acute pancreatitis complication: no infection or necrosis Qualified Code(s): K85.90 - Acute pancreatitis without necrosis or infection, unspecified (5) Acute kidney injury Status: Acute Assessment and plan: Creatinine 1.4 on admit, and has now trended up to 2.2. Diuretics have been stopped. Avoid nephrotoxic agent. Current Visit: Yes (6) Diabetes mellitus Status: Acute Assessment and plan: Continue as present. Defer primary management to hospital medicine. Current Visit: Yes Cardiology - PN: Subj Interval history: PRIMARY ACETYLENE CUTTER: DR. LEVI ([facility]) SUMMARY: Mr. Schumacher is a 31-year-old black male with risk factor significant for: diabetes, tobacco and marijuana abuse. Past medical history includes anemia previous right BKA, and renal insufficiency. He was recently discharged from hospital in [facility] after being treated for acute respiratory failure secondary to pneumonia, and at that time he also underwent treatment for MRSA endocarditis and stage III CKD. Patient presented to [facility] ED on November 05 with complaints of abdominal pain and lower extremity edema with onset in August, H had also reportedly received treatment for this during his hospitalization in [place]. Previous hospital records also mention decreased EF, and echocardiogram on November 08 moderately decreased LV systolic function with EF 20- 25%, diastolic dysfunction, mild TR with PA pressure 35 mmHg. Amylase 237, lipase 2564 on admit, these are trended down. Stools 4+ positive for occult blood. Urine culture positive for E. coli, and appropriate antibiotics in place. Gastroenterology has evaluated since admission, and EGD with findings of GERD and small hiatal hernia. Cardiology is following for management of cardiomyopathy. October: Patient seen resting comfortably in bed this morning. He is awake and alert, and there is no acute distress noted. Reports reproducible chest wall discomfort. No dyspnea at rest. He is increasing his activity with use of his walker, and reports dyspnea on exertion is also improving. Report some abdominal pain, bilateral flank pain, and reports that he is having some nausea and vomiting but his appetite has not been affected. BP 124/65. Pulse rate 70s and regular. Since admission, creatinine has trended up to 2.2 (1.4 on admit, and diuretics have been stopped. He is also being treated for metabolic acidosis. Labs reviewed. Potassium 5.1, magnesium 2.1. Current Medications Acetaminophen (Tylenol Tab) 650 mg PO Q4H PRN PRN Reason: Fever, Headache, Mild Pain Hydrocodone Bitart/Acetaminophen (Dumont 5-325) 1 tablet PO Q4H PRN PRN Reason: Pain Moderate (4-7) Last Admin: 11/13/16 09:32 Dose: 1 tablet Carvedilol (Coreg) 6.25 mg PO BID W/MEALS [facility] Last Admin: 11/13/16 08:46 Dose: 6.25 mg Dextrose/Water (D50) 25 gm IV PRN PRN PRN Reason: Hypoglycemia with IV access Last Admin: 11/09/16 00:37 Dose: 25 gm Duloxetine HCl (Cymbalta) 60 mg PO DAILY [facility] Last Admin: 11/13/16 08:45 Dose: 60 mg Gabapentin (Neurontin Cap/Tab) 600 mg PO TID [facility] Last Admin: 11/13/16 08:45 Dose: 600 mg Glucagon () 1 mg IM PRN PRN PRN Reason: Hypoglycemia w/o IV access Ceftriaxone Sodium 1,000 mg/ (Sodium Chloride) 100 mls @ 200 mls/hr IV Q24H [facility] Last Admin: 11/13/16 08:44 Dose: 200 mls/hr Magnesium Sulfate 2 gm/ Premix 50 mls @ 25 mls/hr IV .PER PROTOCOL PRN; Protocol PRN Reason: Per Protocol Last Infusion: 11/08/16 23:50 Dose: Infused Magnesium Sulfate 4 gm/ Premix 100 mls @ 25 mls/hr IV .PER PROTOCOL PRN; Protocol PRN Reason: Per Protocol Insulin Human Lispro (Humalog) 0 unit SUBCUT ACHS [facility] PRN Reason: Protocol Last Admin: 11/13/16 08:26 Dose: Not Given Insulin Isophane/Insulin Regular (Humulin 70/30) 5 unit SUBCUT BIDAC [facility] Last Admin: 11/13/16 08:44 Dose: 5 unit Loperamide HCl (Imodium Cap) 2 mg PO Q6H PRN PRN Reason: Diarrhea Last Admin: 11/13/16 04:40 Dose: 2 mg Losartan Potassium (Cozaar) 25 mg PO DAILY [facility] Last Admin: 11/13/16 08:46 Dose: 25 mg Morphine Sulfate () 2 mg IV Q4H PRN PRN Reason: Pain Severe (8-10) Last Admin: 11/08/16 01:04 Dose: 2 mg Ondansetron HCl (Zofran Inj) 4 mg IV Q4H PRN PRN Reason: Nausea Last Admin: 11/13/16 04:34 Dose: 4 mg Pantoprazole Sodium (Protonix Tab) 40 mg PO DAILY [facility] Last Admin: 11/13/16 08:45 Dose: 40 mg Sodium Bicarbonate () 1,300 mg PO TID [facility] Last Admin: 11/13/16 08:46 Dose: 1,300 mg Tamsulosin HCl (Flomax) 0.4 mg PO DAILY [facility] Last Admin: 11/13/16 08:46 Dose: 0.4 mg Triamcinolone Acetonide (Kenalog 0.1% Cream) 1 applic TOP BID [facility] Last Admin: 11/13/16 08:46 Dose: 1 applic Exam (Progress Note) - Constitutional Vitals: Period Temp Pulse Resp BP Sys/Greene Pulse Ox Last 24 Hr 97.8 F-99.3 F 67-95 18-22 105-126/56-72 95-100 Exam: General appearance: Thin, no acute distress, is lying flat in bed on arrival. HEENT exam: normal inspection, atraumatic Neck exam: normal inspection no JVD. No carotid bruit. Trachea is in midline Respiratory/lungs exam: clear to auscultation bilaterally good air movement. Cardiovascular exam: regular rate and rhythm, no murmur or gallop or rub. No bradycardia, tachycardia. Chest wall exam: tenderness; reproducible with palpation. GI/Abdominal exam: hypoactive bowel sounds, soft, tender, no abdominal bruits or pulsatile masses. Other: bilateral flank discomfort. Extremeties/musculoskeletal: Right BKA, trace edema RLE Neurological exam: alert, oriented X3, no focal deficits Psychiatric exam: normal affect, normal mood. Cognitive function is grossly normal. Does not appear to be anxious or depressed. Skin exam: warm, dry, intact. Result/EKG - Labs CBC & BMP: 11/10/16 05:27 11/13/16 05:52 Lab Results: I have reviewed the past 24 hour labs Labs: Laboratory Results - last 24 hr 11/12/16 11/12/16 11/12/16 11:40 13:43 15:56 ABG pH 7.153 L* ABG pCO2 33.5 L ABG pO2 62.9 L ABG HCO3 12.1 L ABG Total CO2 11.1 L ABG O2 Saturation 89.0 L ABG Base Excess -16.2 L FiO2 21.00 Sodium Potassium Chloride Carbon Dioxide Anion Gap BUN Creatinine GFR Calculation BUN/Creatinine Ratio Glucose POC Glucose 159 H 252 H Calculated Osmolality Calcium Magnesium 11/12/16 11/13/16 11/13/16 22:00 05:52 05:52 ABG pH ABG pCO2 ABG pO2 ABG HCO3 ABG Total CO2 ABG O2 Saturation ABG Base Excess FiO2 Sodium 139 138 Potassium 5.0 5.1 Chloride 116 H 117 H Carbon Dioxide 12 L 12 L Anion Gap 16.0 H 14.1 BUN 31 H 33 H Creatinine 2.20 H 2.20 H GFR Calculation 43 43 BUN/Creatinine Ratio 14.00 15.00 Glucose 122 H 121 H POC Glucose 280 H Calculated Osmolality 284.5 282.7 Calcium 8.4 L 8.0 L Magnesium 2.1 11/13/16 07:46 ABG pH ABG pCO2 ABG pO2 ABG HCO3 ABG Total CO2 ABG O2 Saturation ABG Base Excess FiO2 Sodium Potassium Chloride Carbon Dioxide Anion Gap BUN Creatinine GFR Calculation BUN/Creatinine Ratio Glucose POC Glucose 138 H Calculated Osmolality Calcium Magnesium - Diagnostic Findings Procedure: Chest x-ray: image reviewed by me, report reviewed by me - EKG EKG results: interpreted by me, no acute changes EKG shows: sinus rhythm IJohn Michael, MD, personally performed the services described in this documentation, ascribed by Tiffany Parks RN in my presence, and it is both accurate and complete .
--- NOTE | 2016-11-13 21:00 | Hospitalist Progress Note ---
Assessment and Plan (1) Acute kidney injury Status: Acute Current Visit: Yes (2) Diabetes mellitus Status: Acute Current Visit: Yes Qualifiers: Diabetes mellitus type: type 2 Diabetes mellitus complication status: with unspecified complications Diabetes mellitus supervisor intermediates insulin use: unspecified supervisor intermediates insulin use status Qualified Code(s): E11.8 - Type 2 diabetes mellitus with unspecified complications (3) Idiopathic cardiomyopathy Status: Chronic Assessment and plan: Ejection fraction was 20-25% continue medical treatment Current Visit: Yes (4) Pancreatitis Status: Acute Assessment and plan: This has improved Current Visit: Yes Qualifiers: Chronicity: acute Pancreatitis type: unspecified pancreatitis type Acute pancreatitis complication: no infection or necrosis Qualified Code(s): K85.90 - Acute pancreatitis without necrosis or infection, unspecified Hospitalist: Subjective Interval history: 31 year old black male with a history of uncontrolled DM with a right bka and anemia that presented to the ED today with complaints of swelling to abdomen, mild pain, and lower extremities with hematemesis and BRBPR. The patient states he noted the swelling about 9 days. He also reports being recently discharged from another facility where he was hospitalized for greater than 2 weeks for a staph infection. He states that the swelling has been ongoing since his hospitalization at that time. Pt. confirms feeling feverish, experiencing chills , n/v/d. He states he takes Lasix 80 mg twice daily but has seen a decrease in his urine output. He reports swelling to the left extremity and states his face even swelled at one point. He denies chest pain. Pt. also denies any other issues in the ED at this time. When patient presented to the ED, labs were drawn and pt was found to have a lipase over greater than 2000, elevated blood sugar at 254, bun/creatinine 21/1.40, BNP of 263 and h&h of 8 and 25. CXR also revealed infiltrate at left lung base. Exam - Constitutional Vitals: Period Temp Pulse Resp BP Sys/Greene Pulse Ox Last 24 Hr 97.8 F-98.4 F 67-110 18-22 105-143/58-86 95-100 General appearance: no acute distress - Eye Eye exam: Present: EOMI Pupils: Present: LINDSEY - ENT ENT exam: Present: normal exam - Neck Neck exam: Present: normal inspection - Respiratory Respiratory exam: Present: clear to auscultation bilaterally - Cardiovascular Cardiovascular exam: Present: regular rate and rhythm - GI/Abdominal GI/Abdominal exam: Present: normal bowel sounds - Extremities Exam Extremities exam: Present: normal inspection, normal capillary refill - Neurological Exam Neurological exam: Present: alert, oriented X3 - Psychiatric Psychiatric exam: Present: normal affect, normal mood - Skin Skin exam: Present: normal color, dry Results - Labs CBC & BMP: 11/10/16 05:27 11/13/16 05:52
[2016-11-14] MEDS: INSULIN LISPRO 100 UNIT/ML SUBCUT SCH ×4 (08:15→21:24)
[2016-11-14] MEDS: DULoxetine 30 MG CAPSULE PO SCH (09:15)
[2016-11-14] MEDS: GABAPENTIN 600 MG TABLET PO SCH ×3 (09:15→21:24)
[2016-11-14] MEDS: LOSARTAN 25 MG TABLET PO SCH (09:15)
[2016-11-14] MEDS: SODIUM BICARBONATE 650 MG TABLET PO SCH ×3 (09:15→21:23)
[2016-11-14] MEDS: cefTRIAXone 1,000 MG in SODIUM CHLORIDE 0.9% 100 ML IV SCH (09:15)
[2016-11-14] MEDS: TAMSULOSIN 0.4 MG CAPSULE PO SCH (09:15)
[2016-11-14] MEDS: CARVEDILOL 6.25 MG TABLET PO SCH ×2 (09:15→16:37)
[2016-11-14] MEDS: PANTOPRAZOLE 40 MG TABLET PO SCH (09:15)
[2016-11-14] MEDS: INSULIN NPH/REGULAR 70/30 100 UNIT/ML SUBCUT SCH ×2 (09:15→16:37)
[2016-11-14] MEDS: TRIAMCINOLONE 0.1% CREAM 15 GM TUBE TOP SCH ×2 (09:16→21:25)
--- NOTE | 2016-11-14 11:06 | Cardiology Progress Note ---
Charly Bueno Vanessa, RN, am scribing for, and in the presence of, Regan Lopez MD 11:06. Assessment and Plan - Time spent with patient Time spent with patient: Greater than 30 minutes (1) Abdominal pain Status: Acute Assessment and plan: EGD revealed GERD with small hiatal hernia but no source for abdominal pain. Stools 4+ positive for blood. He is planned for colonscopy tomorrow. Current Visit: Yes (2) Idiopathic cardiomyopathy Status: Chronic Assessment and plan: LV ejection fraction 20-25%. He may be a candidate for AICD implant in the future. Continue to maximize medical therapy. Current Visit: Yes (3) Systolic heart failure Status: Acute Assessment and plan: At this time, clinically he appears to be fairly well compensated without overt s/s heart failure. Current Visit: Yes (4) Anemia Status: Acute Assessment and plan: Stable. Continue to monitor. Current Visit: Yes (5) Pancreatitis Status: Acute Assessment and plan: This is being treated with conservative medical management. Current Visit: Yes Qualifiers: Chronicity: acute Pancreatitis type: unspecified pancreatitis type Acute pancreatitis complication: no infection or necrosis Qualified Code(s): K85.90 - Acute pancreatitis without necrosis or infection, unspecified (6) Acute kidney injury Status: Acute Assessment and plan: Creatinine 1.4 on admit, and has now trended up to 2.2. Diuretics have been stopped. Avoid nephrotoxic agent. Current Visit: Yes (7) Diabetes mellitus Status: Acute Assessment and plan: Continue as present. Defer primary management to hospital medicine. Current Visit: Yes Qualifiers: Diabetes mellitus type: type 2 Diabetes mellitus complication status: with unspecified complications Diabetes mellitus termite helper insulin use: unspecified termite helper insulin use status Qualified Code(s): E11.8 - Type 2 diabetes mellitus with unspecified complications Cardiology - PN: Subj Interval history: PRIMARY ALLERGY AND IMMUNOLOGY CHIEF: DR. LEVI (NEW) SUMMARY: Mr. Schumacher is a 31-year-old black male with risk factor significant for: diabetes, tobacco and marijuana abuse. Past medical history includes anemia previous right BKA, and renal insufficiency. He was recently discharged from hospital in 414 after being treated for acute respiratory failure secondary to pneumonia, and at that time he also underwent treatment for MRSA endocarditis and stage III CKD. Patient presented to [facility] ED on November 05 with complaints of abdominal pain and lower extremity edema with onset in August, H had also reportedly received treatment for this during his hospitalization in [place]. Previous hospital records also mention decreased EF, and echocardiogram on November 08 moderately decreased LV systolic function with EF 20- 25%, diastolic dysfunction, mild TR with PA pressure 35 mmHg. Amylase 237, lipase 2564 on admit, these are trended down. Stools 4+ positive for occult blood. Urine culture positive for E. coli, and appropriate antibiotics in place. Gastroenterology has evaluated since admission, and EGD with findings of GERD and small hiatal hernia. Cardiology is following for management of cardiomyopathy. October: Mr. Schumacher is awake and alert, watching TV this morning. No acute distress or obvious need. No new complaints overnight. No further chest wall discomfort today. No dyspnea at rest, and he reports continued improvement with dyspnea on exertion. Continuing to have some bilateral flank pain, nausea, and reports diarrhea. He is being prepped for scheduled colonoscopy tomorrow. No labs available this morning for review. Current Medications Acetaminophen (Tylenol Tab) 650 mg PO Q4H PRN PRN Reason: Fever, Headache, Mild Pain Hydrocodone Bitart/Acetaminophen ([place] 5-325) 1 tablet PO Q4H PRN PRN Reason: Pain Moderate (4-7) Last Admin: 11/13/16 22:09 Dose: 1 tablet Bisacodyl (Dulcolax Tab) 20 mg PO ONCE ONE Stop: 11/14/16 12:01 Carvedilol (Coreg) 6.25 mg PO BID W/MEALS [facility] Last Admin: 11/14/16 09:15 Dose: 6.25 mg Dextrose/Water (D50) 25 gm IV PRN PRN PRN Reason: Hypoglycemia with IV access Last Admin: 11/09/16 00:37 Dose: 25 gm Duloxetine HCl (Cymbalta) 60 mg PO DAILY [facility] Last Admin: 11/14/16 09:15 Dose: 60 mg Gabapentin (Neurontin Cap/Tab) 600 mg PO TID [facility] Last Admin: 11/14/16 09:15 Dose: 600 mg Glucagon () 1 mg IM PRN PRN PRN Reason: Hypoglycemia w/o IV access Ceftriaxone Sodium 1,000 mg/ (Sodium Chloride) 100 mls @ 200 mls/hr IV Q24H [facility] Last Admin: 11/14/16 09:15 Dose: 200 mls/hr Magnesium Sulfate 2 gm/ Premix 50 mls @ 25 mls/hr IV .PER PROTOCOL PRN; Protocol PRN Reason: Per Protocol Last Infusion: 11/08/16 23:50 Dose: Infused Magnesium Sulfate 4 gm/ Premix 100 mls @ 25 mls/hr IV .PER PROTOCOL PRN; Protocol PRN Reason: Per Protocol Insulin Human Lispro (Humalog) 0 unit SUBCUT ACHS [place] PRN Reason: Protocol Last Admin: 11/14/16 08:15 Dose: Not Given Insulin Isophane/Insulin Regular (Humulin 70/30) 5 unit SUBCUT BIDAC [facility] Last Admin: 11/14/16 09:15 Dose: 5 unit Loperamide HCl (Imodium Cap) 2 mg PO Q6H PRN PRN Reason: Diarrhea Last Admin: 11/13/16 17:28 Dose: 2 mg Losartan Potassium (Cozaar) 25 mg PO DAILY [facility] Last Admin: 11/14/16 09:15 Dose: 25 mg Magnesium Citrate (Citroma) 300 ml PO ONCE ONE Stop: 11/14/16 21:01 Morphine Sulfate () 2 mg IV Q4H PRN PRN Reason: Pain Severe (8-10) Last Admin: 11/08/16 01:04 Dose: 2 mg Ondansetron HCl (Zofran Inj) 4 mg IV Q4H PRN PRN Reason: Nausea Last Admin: 11/13/16 04:34 Dose: 4 mg Pantoprazole Sodium (Protonix Tab) 40 mg PO DAILY [facility] Last Admin: 11/14/16 09:15 Dose: 40 mg Polyethylene Glycol (Miralax) 255 gm PO ONCE ONE Stop: 11/14/16 18:01 Sodium Bicarbonate () 1,300 mg PO TID [facility] Last Admin: 11/14/16 09:15 Dose: 1,300 mg Tamsulosin HCl (Flomax) 0.4 mg PO DAILY [facility] Last Admin: 11/14/16 09:15 Dose: 0.4 mg Triamcinolone Acetonide (Kenalog 0.1% Cream) 1 applic TOP BID [facility] Last Admin: 11/14/16 09:16 Dose: 1 applic Exam (Progress Note) - Constitutional Vitals: Period Temp Pulse Resp BP Sys/Greene Pulse Ox Last 24 Hr 97.0 F-98.5 F 89-110 18-20 97-143/54-86 95-100 Exam: General appearance: Thin, no acute distress, lying flat in bed this morning. HEENT exam: normal inspection, atraumatic Neck exam: normal inspection. No JVD. No carotid bruit. Trachea is in midline Respiratory/lungs exam: clear to auscultation bilaterally. No rhonchi, stridor, wheeze. Cardiovascular exam: regular rate and rhythm, no murmur or gallop or rub. No bradycardia, tachycardia. Chest wall exam: tenderness; reproducible with palpation. GI/Abdominal exam: hypoactive bowel sounds, soft, tender, no abdominal bruits or pulsatile masses. Other: bilateral flank discomfort. Extremeties/musculoskeletal: Right BKA, trace edema RLE Neurological exam: alert, oriented X3, no focal deficits Psychiatric exam: normal affect, normal mood. Cognitive function is grossly normal. Does not appear to be anxious or depressed. Skin exam: warm, dry, intact. Result/EKG - Labs CBC & BMP: 11/10/16 05:27 11/13/16 05:52 Lab Results: I have reviewed the past 24 hour labs Labs: Laboratory Results - last 24 hr 11/13/16 11/13/16 11/13/16 11:35 15:37 20:27 POC Glucose 124 H 296 H 229 H 11/14/16 07:59 POC Glucose 110 H - EKG EKG results: interpreted by me, no acute changes I, Regan Lopez MD, personally performed the services described in this documentation, ascribed by Tiffany Parks RN in my presence, and it is both accurate and complete .
[2016-11-14] MEDS ORDERED: BISACODYL 5 MG TABLET PO ONE (12:00)
--- NOTE | 2016-11-14 17:10 | Event Note ---
Chief complaint occult positive stools. Plans for colonoscopy again discussed in a.m. He is starting his prep today. He has no complaints of pain and no bleeding is been reported. Review of systems denies any shortness of breath or chest pain On exam vital signs are stable he is alert and oriented 3 in no acute distress sclerae anicteric lids conjunctiva was unremarkable oropharynx is benign neck is supple no JVD lungs clear to auscultation heart regular rate and rhythm no murmur abdomen soft nondistended nontender. Recommendations: Proceed with colonoscopy in a.m. as discussed.
[2016-11-14] MEDS ORDERED: POLYETHYLENE GLYCOL POWDER 255 GM BOTTLE PO ONE (18:00)
[2016-11-14] MEDS ORDERED: MAGNESIUM CITRATE 300 ML BOTTLE PO ONE (21:00)
--- NOTE | 2016-11-14 21:25 | Hospitalist Progress Note ---
Assessment and Plan (1) Acute kidney injury Status: Acute Current Visit: Yes (2) Diabetes mellitus Status: Acute Current Visit: Yes Qualifiers: Diabetes mellitus type: type 2 Diabetes mellitus complication status: with unspecified complications Diabetes mellitus catholic priest insulin use: unspecified catholic priest insulin use status Qualified Code(s): E11.8 - Type 2 diabetes mellitus with unspecified complications (3) Idiopathic cardiomyopathy Status: Chronic Assessment and plan: Ejection fraction was 20-25% continue medical treatment Current Visit: Yes (4) Pancreatitis Status: Acute Assessment and plan: This has improved Current Visit: Yes Qualifiers: Chronicity: acute Pancreatitis type: unspecified pancreatitis type Acute pancreatitis complication: no infection or necrosis Qualified Code(s): K85.90 - Acute pancreatitis without necrosis or infection, unspecified Hospitalist: Subjective Interval history: 31 year old black male with a history of uncontrolled DM with a right bka and anemia that presented to the ED today with complaints of swelling to abdomen, mild pain, and lower extremities with hematemesis and BRBPR. The patient states he noted the swelling about 9 days. He also reports being recently discharged from another facility where he was hospitalized for greater than 2 weeks for a staph infection. He states that the swelling has been ongoing since his hospitalization at that time. Pt. confirms feeling feverish, experiencing chills , n/v/d. He states he takes Lasix 80 mg twice daily but has seen a decrease in his urine output. He reports swelling to the left extremity and states his face even swelled at one point. He denies chest pain. Pt. also denies any other issues in the ED at this time. When patient presented to the ED, labs were drawn and pt was found to have a lipase over greater than 2000, elevated blood sugar at 254, bun/creatinine 21/1.40, BNP of 263 and h&h of 8 and 25. CXR also revealed infiltrate at left lung base. Exam - Constitutional Vitals: Period Temp Pulse Resp BP Sys/Greene Pulse Ox Last 24 Hr 97.0 F-98.7 F 89-103 20-20 101-134/54-79 95-99 Exam: General: [No Acute Distress] HEENT: [Normocephalic, atraumatic, Extra ocular movements intact] Neck: [Supple, No JVD] Chest: [Clear to auscultation B/L] CV: [S1 + S2 audible without murmur, gallop or rub] Abd: [soft, NT, Non-distended, BS +] Ext: [No edema] Skin: [No purpura, bruising or rash] Rheumatologic: [No Joint deformities] Neurologic: [Strengtg 5/5 all extremities, no gross sensory deficits] Results - Labs CBC & BMP: 11/10/16 05:27 11/13/16 05:52 - Impressions Assessment and Plan (1) Acute kidney injury Status: Acute Current Visit: Yes (2) Diabetes mellitus Status: Acute Current Visit: Yes Qualifiers: Diabetes mellitus type: type 2 Diabetes mellitus complication status: with unspecified complications Diabetes mellitus catholic priest insulin use: unspecified catholic priest insulin use status Qualified Code(s): E11.8 - Type 2 diabetes mellitus with unspecified complications (3) Idiopathic cardiomyopathy Status: Chronic Assessment and plan: Ejection fraction was 20-25% continue medical treatment Current Visit: Yes (4) Pancreatitis Status: Acute Assessment and plan: This has improved (5) Abdominal pain Status: Acute Assessment and plan: EGD revealed GERD with small hiatal hernia but no source for abdominal pain. Stools 4+ positive for blood. He is planned for colonscopy tomorrow. Current Visit: Yes
[2016-11-15] MEDS: INSULIN LISPRO 100 UNIT/ML SUBCUT SCH ×4 (07:55→21:04)
[2016-11-15] MEDS: INSULIN NPH/REGULAR 70/30 100 UNIT/ML SUBCUT SCH ×2 (08:06→16:43)
[2016-11-15] MEDS ORDERED: ETOMIDATE 20 MG/10 ML VIAL IV ONE (11:19)
[2016-11-15] MEDS ORDERED: PROPOFOL 200 MG/20 ML VIAL IV ONE (11:19)
[2016-11-15] MEDS ORDERED: LIDOCAINE 2% 5 ML VIAL ONE (11:19)
--- NOTE | 2016-11-15 11:44 | History and Physical Update ---
History and Physical Update - Physical Exam Mental Status: alert and oriented Heart: regular rate and rhythm Lung: clear to auscultation Abdomen: within normal limits Vitals: within normal limits
--- NOTE | 2016-11-15 11:46 | Operative Note ---
Date of procedure: 11/15/16 Pre-op diagnosis: Occult positive stools Procedure: Colonoscopy 31-year-old black male with occult positive stools and abnormal CT with absence of right colon reported on CT. He is now for colonoscopy to further evaluate. Informed consent was obtained the patient He was sedated with MAC anesthesia per anesthesia protocol. Patient was placed in left lateral decubitus position digital exam reveals minimal hemorrhoids but no masses are felt. Normal prostate. The Olympus flexible video colonoscope was inserted into the anal canal and advanced under direct vision to the level of the cecum.. Prep was fair Withdrawal time 6 minutes Findings: Cecum-normal mucosa identified the ileocecal valve appendiceal orifice Terminal ileum-normal Ascending colon-normal Transverse colon-normal Descending colon-normal Sigmoid colon-normal Rectum-normal to direct view retroflexed views with 2+ hemorrhoids. No bleeding was observed. Patient tolerated our procedure well his discharge recovery in good condition. Postop diagnosis: 1. Internal and external hemorrhoids-likely source for occult positive stools. Would treat symptomatically. We will go and check small bowel series with his abnormal CT to exclude small bowel lesions as well. 2. Repeat colonoscopy at age 50. Anesthesia: MAC Surgeon / Physician: Santiago Centeno Estimated blood loss: none Specimens: none sent Condition: stable Disposition: post procedure unit Results - Labs CBC & BMP: 11/10/16 05:27 11/13/16 05:52 Discharge Plan - Discharge Medications No Action Chlorhexidine 4% Soln [Hibiclens] 1 applic TOP DAILY topical solution HYDROcodone/ACETAMIN 7.5-325 [[place] 7.5-325] 1 tablet PO Q4H PRN #30 tablet PRN Reason: Pain Moderate (4-7) Nicotine 21 mg/24 Hr Patch [Nicoderm CQ 21 mg/24 hr Patch] 1 patch TRANSDERM DAILY PRN #20 patch PRN Reason: Nicotine Cravings Sodium Hypochlorite 0.25% Irr [Dakins 1/2 Strength 0.25% Soln] 1 applic TOP DAILY irrigation Ciprofloxacin Tab [Cipro Tab] 500 mg PO BID #14 tablet Skin Healing Oint (Aquaphor) [Aquaphor] 1 applic TOP PRN PRN #0 ointment PRN Reason: Dry Skin Clindamycin Cap [Cleocin Cap] 300 mg PO Q6HR #28 capsule Insulin Detemir [Levemir] 10 unit SUBCUT DAILY Fluticasone 50 Mcg Nasal [place] [Flonase Nasal [place]] 2 spray BOTH NARES DAILY Gabapentin Cap/Tab [Neurontin Cap/Tab] 600 mg PO TID - Follow Up or Referral - Forms/Instructions
--- NOTE | 2016-11-15 11:49 | Anesthesia Post-Op ---
Anesthesia Post OP - Post Ansesthetic Evaluation Patient seen in post op: Yes Resp: within normal limits CV: within normal limits Mental: within normal limits Temp: within normal limits [id number]: within normal limits Nausea and Vomiting: within normal limits Pain: within normal limits
[2016-11-15] MEDS: GABAPENTIN 600 MG TABLET PO SCH ×3 (12:32→21:06)
[2016-11-15] MEDS: TAMSULOSIN 0.4 MG CAPSULE PO SCH (12:32)
[2016-11-15] MEDS: SODIUM BICARBONATE 650 MG TABLET PO SCH ×3 (12:33→21:06)
[2016-11-15] MEDS: TRIAMCINOLONE 0.1% CREAM 15 GM TUBE TOP SCH ×2 (12:33→21:05)
[2016-11-15] MEDS: PANTOPRAZOLE 40 MG TABLET PO SCH (12:33)
[2016-11-15] MEDS: DULoxetine 30 MG CAPSULE PO SCH (12:33)
[2016-11-15] MEDS: LOSARTAN 25 MG TABLET PO SCH (12:34)
[2016-11-15] MEDS: CARVEDILOL 6.25 MG TABLET PO SCH ×2 (12:34→17:35)
[2016-11-15] MEDS: cefTRIAXone 1,000 MG in SODIUM CHLORIDE 0.9% 100 ML IV SCH (12:35)
--- NOTE | 2016-11-15 14:05 | Cardiology Progress Note ---
Charly Bueno Vanessa, RN, am scribing for, and in the presence of, Regan Lopez MD 14:05. Assessment and Plan - Time spent with patient Time spent with patient: Greater than 30 minutes (1) Abdominal pain Status: Acute Assessment and plan: EGD revealed GERD with small hiatal hernia but no source for abdominal pain. Stools 4+ positive for blood. Patient is planned for colonoscopy this morning. Current Visit: Yes (2) Idiopathic cardiomyopathy Status: Chronic Assessment and plan: LV ejection fraction 20-25%. He may be a candidate for AICD implant in the future. Continue to maximize medical therapy. Current Visit: Yes (3) Systolic heart failure Status: Acute Assessment and plan: At this time, clinically he appears to be fairly well compensated without overt s/s heart failure. Current Visit: Yes (4) Anemia Status: Acute Assessment and plan: Stable. Continue to monitor. Current Visit: Yes (5) Pancreatitis Status: Acute Assessment and plan: This is being treated with conservative medical management. Current Visit: Yes Qualifiers: Chronicity: acute Pancreatitis type: unspecified pancreatitis type Acute pancreatitis complication: no infection or necrosis Qualified Code(s): K85.90 - Acute pancreatitis without necrosis or infection, unspecified (6) Acute kidney injury Status: Acute Assessment and plan: Creatinine 1.4 on admit, and has now trended up to 2.2. Diuretics have been stopped. Avoid nephrotoxic agent. Current Visit: Yes (7) Diabetes mellitus Status: Acute Assessment and plan: Continue as present. Defer primary management to hospital medicine. Current Visit: Yes Qualifiers: Diabetes mellitus type: type 2 Diabetes mellitus complication status: with unspecified complications Diabetes mellitus prison insulin use: unspecified prison insulin use status Qualified Code(s): E11.8 - Type 2 diabetes mellitus with unspecified complications Cardiology - PN: Subj Interval history: PRIMARY POOL MANAGER: DR. LEVI (NEW) SUMMARY: Mr. Schumacher is a 31-year-old black male with risk factor significant for: diabetes, tobacco and marijuana abuse. Past medical history includes anemia previous right BKA, and renal insufficiency. He was recently discharged from hospital in 414 after being treated for acute respiratory failure secondary to pneumonia, and at that time he also underwent treatment for MRSA endocarditis and stage III CKD. Patient presented to [facility] ED on November 05 with complaints of abdominal pain and lower extremity edema with onset in May, H had also reportedly received treatment for this during his hospitalization in [place]. Previous hospital records also mention decreased EF, and echocardiogram on November 08 moderately decreased LV systolic function with EF 20- 25%, diastolic dysfunction, mild TR with PA pressure 35 mmHg. Amylase 237, lipase 2564 on admit, these are trended down. Stools 4+ positive for occult blood. Urine culture positive for E. coli, and appropriate antibiotics in place. Gastroenterology has evaluated since admission, and EGD with findings of GERD and small hiatal hernia. Cardiology is following for management of cardiomyopathy. October: No new findings or acute changes in hemodynamic status overnight. He is not having chest pain or shortness of breath. Afebrile, vitals overall stable. Patient for colonoscopy this morning. No labs available this morning. From a cardiac standpoint, he is stable. Current Medications Acetaminophen (Tylenol Tab) 650 mg PO Q4H PRN PRN Reason: Fever, Headache, Mild Pain Hydrocodone Bitart/Acetaminophen ([place] 5-325) 1 tablet PO Q4H PRN PRN Reason: Pain Moderate (4-7) Last Admin: 11/14/16 23:20 Dose: 1 tablet Carvedilol (Coreg) 6.25 mg PO BID W/MEALS [facility] Last Admin: 11/14/16 16:37 Dose: 6.25 mg Dextrose/Water (D50) 25 gm IV PRN PRN PRN Reason: Hypoglycemia with IV access Last Admin: 11/09/16 00:37 Dose: 25 gm Duloxetine HCl (Cymbalta) 60 mg PO DAILY [facility] Last Admin: 11/14/16 09:15 Dose: 60 mg Gabapentin (Neurontin Cap/Tab) 600 mg PO TID [facility] Last Admin: 11/14/16 21:24 Dose: 600 mg Glucagon () 1 mg IM PRN PRN PRN Reason: Hypoglycemia w/o IV access Ceftriaxone Sodium 1,000 mg/ (Sodium Chloride) 100 mls @ 200 mls/hr IV Q24H [facility] Last Infusion: 11/14/16 10:03 Dose: Infused Magnesium Sulfate 2 gm/ Premix 50 mls @ 25 mls/hr IV .PER PROTOCOL PRN; Protocol PRN Reason: Per Protocol Last Infusion: 11/08/16 23:50 Dose: Infused Magnesium Sulfate 4 gm/ Premix 100 mls @ 25 mls/hr IV .PER PROTOCOL PRN; Protocol PRN Reason: Per Protocol Insulin Human Lispro (Humalog) 0 unit SUBCUT ACHS [facility] PRN Reason: Protocol Last Admin: 11/15/16 07:55 Dose: Not Given Insulin Isophane/Insulin Regular (Humulin 70/30) 5 unit SUBCUT BIDAC [facility] Last Admin: 11/15/16 08:06 Dose: Not Given Loperamide HCl (Imodium Cap) 2 mg PO Q6H PRN PRN Reason: Diarrhea Last Admin: 11/13/16 17:28 Dose: 2 mg Losartan Potassium (Cozaar) 25 mg PO DAILY [facility] Last Admin: 11/14/16 09:15 Dose: 25 mg Morphine Sulfate () 2 mg IV Q4H PRN PRN Reason: Pain Severe (8-10) Last Admin: 11/08/16 01:04 Dose: 2 mg Ondansetron HCl (Zofran Inj) 4 mg IV Q4H PRN PRN Reason: Nausea Last Admin: 11/13/16 04:34 Dose: 4 mg Pantoprazole Sodium (Protonix Tab) 40 mg PO DAILY [facility] Last Admin: 11/14/16 09:15 Dose: 40 mg Sodium Bicarbonate () 1,300 mg PO TID [facility] Last Admin: 11/14/16 21:23 Dose: 1,300 mg Tamsulosin HCl (Flomax) 0.4 mg PO DAILY [facility] Last Admin: 11/14/16 09:15 Dose: 0.4 mg Triamcinolone Acetonide (Kenalog 0.1% Cream) 1 applic TOP BID [facility] Last Admin: 11/14/16 21:25 Dose: 1 applic Exam (Progress Note) - Constitutional Vitals: Period Temp Pulse Resp BP Sys/Greene Pulse Ox Last 24 Hr 96.9 F-98.7 F 71-103 16-22 111-159/56-98 95-100 Exam: General appearance: Thin, no acute distress, lying flat in bed this morning. HEENT exam: normal inspection, atraumatic Neck exam: normal inspection. No JVD. No carotid bruit. Trachea is in midline Respiratory/lungs exam: clear to auscultation bilaterally. No rhonchi, stridor, wheeze. Cardiovascular exam: regular rate and rhythm, no murmur or gallop or rub. No bradycardia, tachycardia. Chest wall exam: tenderness; reproducible with palpation. GI/Abdominal exam: hypoactive bowel sounds, soft, tender, no abdominal bruits or pulsatile masses. Other: bilateral flank discomfort. Extremeties/musculoskeletal: Right BKA, trace edema RLE Neurological exam: alert, oriented X3, no focal deficits Psychiatric exam: normal affect, normal mood. Cognitive function is grossly normal. Does not appear to be anxious or depressed. Skin exam: warm, dry, intact. Result/EKG - Labs CBC & BMP: 11/10/16 05:27 11/13/16 05:52 Lab Results: I have reviewed the past 24 hour labs Labs: Laboratory Results - last 24 hr 11/14/16 11/14/16 11/14/16 11:56 16:04 21:09 POC Glucose 98 141 H 150 H 11/15/16 07:30 POC Glucose 105 - EKG EKG results: interpreted by me, no acute changes I, Regan Lopez MD, personally performed the services described in this documentation, ascribed by Tiffany Parks RN in my presence, and it is both accurate and complete .
--- NOTE | 2016-11-15 21:26 | Hospitalist Progress Note ---
Assessment and Plan (1) Acute kidney injury Status: Acute Current Visit: Yes (2) Diabetes mellitus Status: Acute Current Visit: Yes Qualifiers: Diabetes mellitus type: type 2 Diabetes mellitus complication status: with unspecified complications Diabetes mellitus intermission coordinator insulin use: unspecified intermission coordinator insulin use status Qualified Code(s): E11.8 - Type 2 diabetes mellitus with unspecified complications (3) Idiopathic cardiomyopathy Status: Chronic Assessment and plan: Ejection fraction was 20-25% continue medical treatment Current Visit: Yes (4) Pancreatitis Status: Acute Assessment and plan: This has improved Current Visit: Yes Qualifiers: Chronicity: acute Pancreatitis type: unspecified pancreatitis type Acute pancreatitis complication: no infection or necrosis Qualified Code(s): K85.90 - Acute pancreatitis without necrosis or infection, unspecified Hospitalist: Subjective Interval history: 31 year old black male with a history of uncontrolled DM with a right bka and anemia that presented to the ED with complaints of swelling to abdomen, mild pain, and lower extremities with hematemesis and BRBPR. The patient states he noted the swelling about 9 days. He also reports being recently discharged from another facility where he was hospitalized for greater than 2 weeks for a staph infection. He states that the swelling has been ongoing since his hospitalization at that time. Pt. confirms feeling feverish, experiencing chills , n/v/d. He states he takes Lasix 80 mg twice daily but has seen a decrease in his urine output. He reports swelling to the left extremity and states his face even swelled at one point. He denies chest pain. Pt. also denies any other issues in the ED at this time. When patient presented to the ED, labs were drawn and pt was found to have a lipase over greater than 2000, elevated blood sugar at 254, bun/creatinine 21/1.40, BNP of 263 and h&h of 8 and 25. CXR also revealed infiltrate at left lung base. Exam - Constitutional Vitals: Period Temp Pulse Resp BP Sys/Greene Pulse Ox Last 24 Hr 96.9 F-98.1 F 71-109 13-20 112-159/65-98 95-100 Exam: General: [No Acute Distress] HEENT: [Normocephalic, atraumatic, Extra ocular movements intact] Neck: [Supple, No JVD] Chest: [Clear to auscultation B/L] CV: [S1 + S2 audible without murmur, gallop or rub] Abd: [soft, NT, Non-distended, BS +] Ext: [No edema] Skin: [No purpura, bruising or rash] Rheumatologic: [No Joint deformities] Neurologic: [Strengtg 5/5 all extremities, no gross sensory deficits] Results - Labs CBC & BMP: 11/10/16 05:27 11/13/16 05:52 - Impressions Assessment and Plan (1) Acute kidney injury Status: Acute Current Visit: Yes (2) Diabetes mellitus Status: Acute Current Visit: Yes Qualifiers: Diabetes mellitus type: type 2 Diabetes mellitus complication status: with unspecified complications Diabetes mellitus longterm insulin use: unspecified longterm insulin use status Qualified Code(s): E11.8 - Type 2 diabetes mellitus with unspecified complications (3) Idiopathic cardiomyopathy/chronic systolic congestive heart failure Status: Chronic Assessment and plan: Ejection fraction was 20-25% continue medical treatment Current Visit: Yes (4) Pancreatitis Status: Acute Assessment and plan: This has improved Current Visit: Yes Qualifiers: Chronicity: acute Pancreatitis type: unspecified pancreatitis type Acute pancreatitis complication: no infection or necrosis Qualified Code(s): K85.90 - Acute pancreatitis without necrosis or infection, unspecified (5) Abdominal pain Status: Acute Assessment and plan: EGD revealed GERD with small hiatal hernia but no source for abdominal pain. Stools 4+ positive for blood. Patient is planned for colonoscopy this morning. Current Visit: Yes
[2016-11-16 06:11] LABS: Calcium 8.1 MG/DL (8.5-10.1); Magnesium 2.2 MG/DL (1.8-2.4); Osmolality,Calculated 283.1 MOS/KG (273-304)
[2016-11-16] MEDS: INSULIN LISPRO 100 UNIT/ML SUBCUT SCH ×2 (09:08→12:22)
[2016-11-16] MEDS: CARVEDILOL 6.25 MG TABLET PO SCH (09:09)
[2016-11-16] MEDS: INSULIN NPH/REGULAR 70/30 100 UNIT/ML SUBCUT SCH (09:09)
[2016-11-16] MEDS: PANTOPRAZOLE 40 MG TABLET PO SCH (09:10)
[2016-11-16] MEDS: GABAPENTIN 600 MG TABLET PO SCH (09:10)
[2016-11-16] MEDS: SODIUM BICARBONATE 650 MG TABLET PO SCH (09:10)
[2016-11-16] MEDS: TAMSULOSIN 0.4 MG CAPSULE PO SCH (09:11)
[2016-11-16] MEDS: DULoxetine 30 MG CAPSULE PO SCH (09:11)
[2016-11-16] MEDS: LOSARTAN 25 MG TABLET PO SCH (09:11)
--- NOTE | 2016-11-16 09:40 | Gastrointestinal Progress Note ---
<Veronika Coteher Sherry - Last Filed: 11/16/16 09:38> Assessment and Plan (1) Anemia Status: Acute Assessment and plan: 11/16-post colonoscopy with only findings of internal/external hemorrhoids. No reports of overt bleeding. For small bowel follow-through today. Continue to monitor this time. Plan an addendum to follow Dr. Centeno. 11/14-no recent H&H recheck. Will order this today. No overt bleeding. Plan an addendum to follow by Dr. Centeno. 11/09-hemoglobin stable at 10.4. EGD findings noted on yesterday as well as CT findings noted as below. No further records from [facility] have been received yet. Tolerating diet. Plan an addendum follow Dr. Centeno. 11/07-hemoglobin holding in stable. No overt bleeding. Records from outside facility noted as below. Patient states he will proceed with EGD at this time. We will also work to obtain further records from prior inpatient stays at [facility]. Plan an addendum to followed by Dr. Centeno. 11/06-findings of anemia on admission with reports of hematemesis as well as hematochezia. Hemoglobin 9.2 units packed red blood cells. Complaints of abdominal pain with noncontrasted CT scan with no acute findings other than dilation of multiple loops of small intestines and wall thickening. Prior extensive workup at [facility]. Continue to monitor H&H and transfuse as needed. Reattempt to obtain medical records from [place]. Plan an addendum to follow Dr. Centeno. (2) Abdominal pain Status: Acute Assessment and plan: 11/13-lower abdominal soreness/tenderness with diarrhea upwards of 4-5 episodes daily with negative C. difficile 2 continue to monitor at this time. Plan an addendum to followed by Dr. Centeno. Gastroenterology - PN: Subj Interval history: CC: Occult positive stools Patient is seen ambulating hallways this morning. C scope findings on yesterday showed internal and external hemorrhoids. He is for small bowel follow-through this morning which is still pending. Abdomen soft, nontender. He denies any pain, nausea or vomiting at present time. ROS: Denies shortness of breath or chest pain Exam (Progress Note) - Constitutional Vitals: Period Temp Pulse Resp BP Sys/Greene Pulse Ox Last 24 Hr 97.3 F-98.2 F 76-109 13-20 96-158/55-96 98-100 General appearance: normal weight, no acute distress - Head Head exam: Present: normal inspection, normocephalic - Eye Eye exam: Present: other (Lids and conjunctivae are unremarkable). Absent: scleral icterus - ENT ENT exam: Present: normal exam - Neck Neck exam: Present: normal inspection - Respiratory Respiratory exam: Present: clear to auscultation bilaterally. Absent: rales, rhonchi, wheezes - Cardiovascular Cardiovascular exam: Present: regular rate and rhythm. Absent: diastolic murmur , JVD, systolic murmur - GI/Abdominal GI/Abdominal exam: Present: normal bowel sounds, soft. Absent: ascites, distended, mass, organomegaly, tenderness - Extremities Exam Extremities exam: Present: normal inspection, full ROM - Back Exam Back exam: Present: normal inspection - Neurological Exam Neurological exam: Present: alert, oriented X3 - Psychiatric Psychiatric exam: Present: normal affect, normal mood - Skin Skin exam: Present: normal color, warm, dry Results - Labs CBC & BMP: 11/10/16 05:27 11/16/16 04:39 Lab Results: I have reviewed the past 24 hour labs <Santiago Centeno - Last Filed: 11/16/16 17:19> Exam (Progress Note) - Constitutional Vitals: Period Temp Pulse Resp BP Sys/Greene Pulse Ox Last 24 Hr 97.6 F-98.2 F 80-98 18-20 96-162/55-100 98-100 Results - Labs CBC & BMP: 11/10/16 05:27 11/16/16 04:39
[2016-11-16] MEDS: cefTRIAXone 1,000 MG in SODIUM CHLORIDE 0.9% 100 ML IV SCH (09:47)
[2016-11-16] MEDS: TRIAMCINOLONE 0.1% CREAM 15 GM TUBE TOP SCH (09:47)
[2016-11-16 11:55] VITALS: BP 162/100
[2016-11-16 12:07] LABS: Renin Activity 14 ng/mL/h
--- NOTE | 2016-11-16 12:40 | Discharge Summary ---
<Hiram Dennis - Last Filed: 11/16/16 12:37> Hospital Course - Hospital Course Hospital Course: This patient is a 31 year old male with a history of uncontrolled DM with a right BKA and anemia who presented to the [facility] ED on 12/2016 with complaints of swelling to abdomen, mild pain, and lower extremities with hematemesis and BRBPR. He was admitted to the hospital medicine service for further evaluation and treatment along with consultation from cardiology and gastroenterology. Of note, the patient reported a recent hospital admission with similar complaints in [place], [place]. Noncontrast CT of the abdomen revealed no acute findings other than dilation of multifple loops of small intestines and wall thickening. Patient underwent an EGD on 03/2017 which revealed GERD with small hiatal hernia. Patient had a follow-up colonoscopy on 11/15/2016 which revealed internal and external hemorrhoids ( likely source for occult positive stools). GI recommends continuing PPI therapy , treating hemorrhoids symptomatically and repeating colonoscopy at age 50. Cardiology was consulted for idiopathic cardiomyopathy. Echocardiogram revealed LV ejection fraction approximately 20-25%. Patient may be a candidate for AICD implant in the future. At this time cardiology recommends maximizing medical therapy. Patient has reached maximum benefit from hospitalization and is stable for discharge. He will be discharged home to self with follow-up from PCP and cardiology. Appropriate follow-up instructions and discharge orders to follow per Dr. Dennis. Discharge Plan - Discharge Data Disposition: Disch/Xfer to Snf Condition at Discharge: Stable Discharge Diet: low fat, low cholesterol Activity: increase activity as tolerated Hygiene: no restrictions Weight Bearing at Discharge: weight bear as tolerated Driving: not until seen by doctor Contact your physician if you experience:: fever over 101, Nausea/Vomiting, Shortness of breath, pain uncontrolled by pain medications - Discharge Medications New Carvedilol [Coreg] 6.25 mg PO BID W/MEALS #30 tablet DULoxetine [Cymbalta] 60 mg PO DAILY #30 capsule Pantoprazole Tab [Protonix Tab] 40 mg PO DAILY #30 tablet Tamsulosin [Flomax] 0.4 mg PO DAILY #30 capsule Losartan [Cozaar] 25 mg PO DAILY #30 tablet Continue Chlorhexidine 4% Soln [Hibiclens] 1 applic TOP DAILY topical solution HYDROcodone/ACETAMIN 7.5-325 [[place] 7.5-325] 1 tablet PO Q4H PRN #30 tablet PRN Reason: Pain Moderate (4-7) Nicotine 21 mg/24 Hr Patch [Nicoderm CQ 21 mg/24 hr Patch] 1 patch TRANSDERM DAILY PRN #20 patch PRN Reason: Nicotine Cravings Sodium Hypochlorite 0.25% Irr [Dakins 1/2 Strength 0.25% Soln] 1 applic TOP DAILY irrigation Skin Healing Oint (Aquaphor) [Aquaphor] 1 applic TOP PRN PRN #0 ointment PRN Reason: Dry Skin Insulin Detemir [Levemir] 10 unit SUBCUT DAILY Fluticasone 50 Mcg Nasal [place] [Flonase Nasal [place]] 2 spray BOTH NARES DAILY Gabapentin Cap/Tab [Neurontin Cap/Tab] 600 mg PO TID Discontinued Ciprofloxacin Tab [Cipro Tab] 500 mg PO BID #14 tablet Clindamycin Cap [Cleocin Cap] 300 mg PO Q6HR #28 capsule - Follow Up or Referral - Forms/Instructions Exam - Constitutional Vitals: Period Temp Pulse Resp BP Sys/Greene Pulse Ox Last 24 Hr 97.3 F-98.2 F 80-109 18-20 96-162/55-100 98-100 General appearance: no acute distress, under weight - Head Head exam: Present: normocephalic, atraumatic - Eye Eye exam: Present: EOMI Pupils: Present: LINDSEY - ENT ENT exam: Present: normal exam - Neck Neck exam: Present: normal inspection - Respiratory Respiratory exam: Present: clear to auscultation bilaterally - Cardiovascular Cardiovascular exam: Present: regular rate and rhythm - GI/Abdominal GI/Abdominal exam: Present: normal bowel sounds, soft, other (Mild tenderness periumbilically mild periumbilical discomfort no rebound tenderness) - Neurological Exam Neurological exam: Present: alert, oriented X3, CN II-XII intact - Psychiatric Psychiatric exam: Present: normal affect, normal mood - Skin Skin exam: Present: normal color, warm, dry Discharge Results Procedures and tests throughout hospitalization: Pending Orders 11/05/16 11:02 Occult Blood, Stool Stat 11/13/16 05:52 Aldosterone IN AM Renin Activity IN AM 11/16/16 04:00 [place] small bowel follow through IN AM 11/16/16 04:11 Immunoglobulin Subclass IgG4,S Routine Labs on day of discharge: Labs from last 24 hours 11/16/16 11/16/16 11/16/16 11:46 08:22 04:39 Sodium 142 Potassium 5.0 Chloride 118 H Carbon Dioxide 18 L Anion Gap 11.0 BUN 15 Creatinine 1.30 GFR Calculation 84 BUN/Creatinine Ratio 11.00 Glucose 100 POC Glucose 114 H 99 Calculated Osmolality 283.1 Calcium 8.1 L Magnesium 2.2 Renin Activity 11/15/16 11/15/16 11/13/16 20:22 15:43 05:52 Sodium Potassium Chloride Carbon Dioxide Anion Gap BUN Creatinine GFR Calculation BUN/Creatinine Ratio Glucose POC Glucose 173 H 251 H Calculated Osmolality Calcium Magnesium Renin Activity 14 DS: Provider Date of admission: 11/05/16 10:26 Primary care physician: . No PCP Attending physician on admission: Bg Molina MD Consults: 11/05/16 11:29 Consult to Physician [CONS] Routine Comment: Consulting Provider: Santiago Centeno Person Notified: dr abraham Date Notified: 11/05/16 Time Notified: 11:52 Consult Notification Comment: called dr centeno office on sunday11/05/16 11:38 Consult to Case Mgmt/Social Srvs [CONS] Routine Reason for Case Mgmt/Social Srvs: Home Health Consult to [facility], Educator [CONS] Routine Reason for Agricultural Engineering Technician: Diabetes Education 11/05/16 16:40 Consult to Dietitian [CONS] Routine Reason for Dietitian: Supplements and/or Snacks 11/07/16 16:24 Consult to Wound Care - [place] [CONS] Routine Reason for Wound Care: Wound Care Management Consult Comment: needs wound care orders, it has been bothering his stump 11/08/16 09:01 Consult to Pastoral Services [CONS] Routine Comment: Pastoral Screen: Grief Over Loss Pastoral Screen Source of Request: Patient 11/09/16 13:48 Consult to Case Mgmt/Social Srvs [CONS] Routine Reason for Case Mgmt/Social Srvs: Swingbed/SNF/Long-Term 11/10/16 07:52 Consult to Physician [CONS] Routine Comment: systolic and diastolic heart failure Consulting Provider: Philip Saavedra Person Notified: FATEMEH Date Notified: 11/10/16 Time Notified: 08:27 Discharging clinician: Hiram Dennis MD <Jose A Michaud - Last Filed: 11/16/16 13:14> Hospital Course - Time spent with patient Time with patient DS: Greater than 30 minutes DS: Provider Expected date of discharge: 11/16/16
[2016-11-16] MEDS ORDERED: TUBERCULIN SKIN TEST 0.1 ML SYRINGE INTRADERM ONE (13:11)
--- NOTE | 2016-11-16 15:05 | Fluoroscopy Report ---
History is Hemoccult-positive stools 1 minute 15 seconds total fluoroscopy time utilized Food Service Lead film is unremarkable The patient ingested barium mixture without difficulty Contrast material reaches the colon by 35 minutes. The right clinical is not seen in the usual position. Splenic flexure is present with the small amount of the colon extending to the right of midline more inferiorly. The the terminal ileum is obscured as a result. It is uncertain how much of this is postoperative or developmental. The No persistent areas of small bowel dilatation, fold thickening, or obstruction is seen. Impression: Postoperative change versus developmental anomaly of the right colon obscuring visualization of the terminal ileum. Otherwise no small bowel abnormality seen PROCEDURE INTERPRETED AT [facility] DEPARTMENT OF RADIOLOGY Final Report Signed by: Dr. Ilene Alvarez
--- NOTE | 2016-11-16 16:49 | Cardiology Progress Note ---
Charly Bueno Vanessa, RN, am scribing for, and in the presence of, Regan Lopez MD 16:49. Assessment and Plan - Time spent with patient Time spent with patient: Greater than 30 minutes (1) Abdominal pain Status: Acute Assessment and plan: Colonoscopy yesterday demonstrated internal and external hemorrhoids felt to be a source of positive Hemoccults. He is for evaluation of possible small bowel lesions with capsule endoscopy today. He is not having any abdominal pain this morning. (2) Idiopathic cardiomyopathy Status: Chronic Assessment and plan: LV ejection fraction 20-25%. He may be a candidate for AICD implant in the future. Continue to maximize medical therapy. At this time, he appears to be well compensated. (3) Systolic heart failure Status: Acute Assessment and plan: This continues to be stable with no clinical S/S of overt heart failure. (4) Anemia Status: Acute Assessment and plan: Stable. Continue to monitor. (5) Pancreatitis Status: Acute Assessment and plan: This is being treated with conservative medical management. Qualifiers: Chronicity: acute Pancreatitis type: unspecified pancreatitis type Acute pancreatitis complication: no infection or necrosis Qualified Code(s): K85.90 - Acute pancreatitis without necrosis or infection, unspecified (6) Acute kidney injury Status: Acute Assessment and plan: Creatinine much improved now to 1.3. Continue to monitor renal function. Avoid nephrotoxic agent. (7) Diabetes mellitus Status: Acute Assessment and plan: Continue as present. Defer primary management to hospital medicine. 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 LEVI ([facility]) SUMMARY: Mr. Schumacher is a 31-year-old black male with risk factor significant for: diabetes, tobacco and marijuana abuse. Past medical history includes anemia previous right BKA, and renal insufficiency. He was recently discharged from hospital in [facility] after being treated for acute respiratory failure secondary to pneumonia, and at that time he also underwent treatment for MRSA endocarditis and stage III CKD. Patient presented to [facility] ED on November 05 with complaints of abdominal pain and lower extremity edema with onset in August, H had also reportedly received treatment for this during his hospitalization in [place]. Previous hospital records also mention decreased EF, and echocardiogram on November 08 moderately decreased LV systolic function with EF 20- 25%, diastolic dysfunction, mild TR with PA pressure 35 mmHg. Amylase 237, lipase 2564 on admit, these are trended down. Stools 4+ positive for occult blood. Urine culture positive for E. coli, and appropriate antibiotics in place. Gastroenterology has evaluated since admission, and EGD with findings of GERD and small hiatal hernia. Cardiology is following for management of cardiomyopathy. NOVEMBER 16, 2016: Colonoscopy yesterday revealed internal and external hemorrhoid felt to be likely source for positive Hemoccults. Patient is for small bowel capsule endoscopy for further evaluation this morning. He is awake and alert and in no acute distress. Reports no chest pain or dyspnea at rest overnight. Reports minimal to no dyspnea with exertion while ambulating in the hallways and out to the parking garage. No abdominal discomfort this morning. He is not having any nausea or vomiting. Labs reviewed. Stress within acceptable range. Renal function much improved with creatinine 1.3 today (2.2 on 11/13). Afebrile, vitals are stable. From a cardiac standpoint, patient is doing overall well. Current Medications Acetaminophen (Tylenol Tab) 650 mg PO Q4H PRN PRN Reason: Fever, Headache, Mild Pain Hydrocodone Bitart/Acetaminophen ([place] 5-325) 1 tablet PO Q4H PRN PRN Reason: Pain Moderate (4-7) Last Admin: 11/15/16 23:53 Dose: 1 tablet Carvedilol (Coreg) 6.25 mg PO BID W/MEALS [facility] Last Admin: 11/16/16 09:09 Dose: Not Given Dextrose/Water (D50) 25 gm IV PRN PRN PRN Reason: Hypoglycemia with IV access Last Admin: 11/09/16 00:37 Dose: 25 gm Duloxetine HCl (Cymbalta) 60 mg PO DAILY [facility] Last Admin: 11/16/16 09:11 Dose: Not Given Gabapentin (Neurontin Cap/Tab) 600 mg PO TID [facility] Last Admin: 11/16/16 09:10 Dose: Not Given Glucagon () 1 mg IM PRN PRN PRN Reason: Hypoglycemia w/o IV access Ceftriaxone Sodium 1,000 mg/ (Sodium Chloride) 100 mls @ 200 mls/hr IV Q24H [facility] Last Infusion: 11/15/16 15:07 Dose: Infused Magnesium Sulfate 2 gm/ Premix 50 mls @ 25 mls/hr IV .PER PROTOCOL PRN; Protocol PRN Reason: Per Protocol Last Infusion: 11/08/16 23:50 Dose: Infused Magnesium Sulfate 4 gm/ Premix 100 mls @ 25 mls/hr IV .PER PROTOCOL PRN; Protocol PRN Reason: Per Protocol Insulin Human Lispro (Humalog) 0 unit SUBCUT ACHS [facility] PRN Reason: Protocol Last Admin: 11/16/16 09:08 Dose: Not Given Insulin Isophane/Insulin Regular (Humulin 70/30) 5 unit SUBCUT BIDAC [facility] Last Admin: 11/16/16 09:09 Dose: Not Given Loperamide HCl (Imodium Cap) 2 mg PO Q6H PRN PRN Reason: Diarrhea Last Admin: 11/13/16 17:28 Dose: 2 mg Losartan Potassium (Cozaar) 25 mg PO DAILY [facility] Last Admin: 11/16/16 09:11 Dose: Not Given Ondansetron HCl (Zofran Inj) 4 mg IV Q4H PRN PRN Reason: Nausea Last Admin: 11/13/16 04:34 Dose: 4 mg Pantoprazole Sodium (Protonix Tab) 40 mg PO DAILY [facility] Last Admin: 11/16/16 09:10 Dose: Not Given Sodium Bicarbonate () 1,300 mg PO TID [facility] Last Admin: 11/16/16 09:10 Dose: Not Given Tamsulosin HCl (Flomax) 0.4 mg PO DAILY [facility] Last Admin: 11/16/16 09:11 Dose: Not Given Triamcinolone Acetonide (Kenalog 0.1% Cream) 1 applic TOP BID [facility] Last Admin: 11/15/16 21:05 Dose: 1 applic Exam (Progress Note) - Constitutional Vitals: Period Temp Pulse Resp BP Sys/Greene Pulse Ox Last 24 Hr 97.3 F-98.2 F 76-109 13-20 96-158/55-96 98-100 Exam: General appearance: Thin, no acute distress, ambulating in the hallways this morning with no difficulty HEENT exam: normal inspection, atraumatic Neck exam: normal inspection. No JVD. No carotid bruit. Trachea is in midline Respiratory/lungs exam: clear to auscultation bilaterally. No rhonchi, stridor, wheeze. No supplemental oxygen in use. Cardiovascular exam: regular rate and rhythm, no murmur or gallop or rub. No bradycardia, tachycardia. Chest wall exam: tenderness; reproducible with palpation. GI/Abdominal exam: hypoactive bowel sounds, soft, nontender, no abdominal bruits or pulsatile masses. Extremeties/musculoskeletal: Right BKA, no edema or LE Neurological exam: alert, oriented X3, no focal deficits Psychiatric exam: normal affect, normal mood. Cognitive function is grossly normal. Does not appear to be anxious or depressed. Skin exam: warm, dry, intact. Result/EKG - Labs CBC & BMP: 11/10/16 05:27 11/16/16 04:39 Lab Results: I have reviewed the past 24 hour labs Labs: Laboratory Results - last 24 hr 11/15/16 11/15/16 11/16/16 15:43 20:22 04:39 Sodium 142 Potassium 5.0 Chloride 118 H Carbon Dioxide 18 L Anion Gap 11.0 BUN 15 Creatinine 1.30 GFR Calculation 84 BUN/Creatinine Ratio 11.00 Glucose 100 POC Glucose 251 H 173 H Calculated Osmolality 283.1 Calcium 8.1 L Magnesium 2.2 11/16/16 08:22 Sodium Potassium Chloride Carbon Dioxide Anion Gap BUN Creatinine GFR Calculation BUN/Creatinine Ratio Glucose POC Glucose 99 Calculated Osmolality Calcium Magnesium - EKG EKG results: interpreted by me, no acute changes I, Regan Lopez MD, personally performed the services described in this documentation, ascribed by Tiffany Parks RN in my presence, and it is both accurate and complete [phone] .
== END 2016-11-16 15:38 | DRG 393 ==
LOC: N.ED 06:06 → SUATTDRO 10:26 → N.EDINP 10:26 → N.2E 11:03
PROVIDERS: ADMIT Internal Medicine; ATTEND Internal Medicine Infectious Disease

== ENCOUNTER 2016-12-18 15:12 | Inpatient (IN) ==
--- NOTE | 2016-12-18 17:04 | Emergency Department Note ---
Arrival - Arrival Chief Complaint: Extremity Problem Stated Complaint: bumps swollen on back of BKA ED Nursing Triage Note: Pt c/o swelling just above and posterior to his right knee and amputation x 2 wks. Mode of Arrival: Wheelchair Limitations: No Limitations Source: Patient, Old Records Reviewed, RN Notes Reviewed Time Seen by Provider: 12/18/16 16:02 - History of Present Illness HPI Narrative: 31yo black male presents to ED with CC of swelling to right thigh x 1-2 weeks. 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 The area originally started as a callous from the prosthesis, then developed another "sore" just below the callous. This has become progressively more swollen, painful, and erythemetous over the past week. He was recently hospitalized in [place] for "staph" and had drains in both thighs. PMHx significant for CHF, right BKA, IDDM , chronic pancreatitis. Patient denies alcohol use. PCP is Trina Garcia at the [facility]. Allergies/Adverse Reactions: Allergies Allergy/AdvReac Type Severity Reaction Status Date / Time No Known Allergies Allergy Unverified 12/13/16 16:32 Home Medications: Home Medications Medication Instructions Recorded Confirmed Type Chlorhexidine 4% Soln [Hibiclens] 1 applic TOP DAILY topical 08/06/15 11/05/16 Rx solution Sodium Hypochlorite 0.25% Irr 1 applic TOP DAILY irrigation 08/06/15 11/05/16 Rx [Dakins 1/2 Strength 0.25% Soln] Skin Healing Oint (Aquaphor) 1 applic TOP PRN PRN #0 ointment 08/09/15 11/05/16 Rx [Aquaphor] Fluticasone 50 Mcg Nasal [place] 2 spray BOTH NARES DAILY 11/05/16 12/18/16 History [Flonase Nasal [place]] Gabapentin Cap/Tab [Neurontin 600 mg PO TID 11/05/16 12/18/16 History Cap/Tab] Insulin Detemir [Levemir] 10 unit SUBCUT DAILY 11/05/16 12/18/16 History DULoxetine [Cymbalta] 60 mg PO DAILY #30 capsule 11/16/16 12/18/16 Rx Losartan [Cozaar] 25 mg PO DAILY #30 tablet 11/16/16 12/18/16 Rx Tamsulosin [Flomax] 0.4 mg PO DAILY #30 capsule 11/16/16 12/18/16 Rx Review of System - Review of System 12 point system: reviewed and no additional remarkable complaints except as stated - Review of System Constitutional: Absent: fever Respiratory: Absent: respiratory distress, wheezing Cardiovascular: Absent: chest pain, dyspnea on exertion Gastrointestinal: Present: as per HPI, abdominal pain, nausea, vomiting, diarrhea. 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 Absent: rales, rhonchi, wheezes - Cardiovascular Cardiovascular exam: Present: regular rate, normal rhythm, normal heart sounds - Extremities Exam Extremities exam: Present: normal inspection, full ROM - Neurological Exam Neurological exam: Present: alert, oriented X3 - Psychiatric Psychiatric exam: Present: normal affect, normal mood - Skin Skin exam: Present: warm, dry, intact. Approximately 5cm abscess present in the left inner thigh, just proximal to knee, appears fluctuant. This is surrounded by larger area of swelling and erythema. Vital Signs: Vital Signs Temperature 97.5 F L 12/18/16 21:00 Pulse Rate 102 H 12/18/16 21:00 Respiratory Rate 20 12/18/16 21:00 Blood Pressure 156/90 12/18/16 21:00 O2 Sat by Pulse Oximetry 99 12/18/16 21:00 Course Course Narrative: Due to patient's diabetes and consitutional symptoms, I do not feel an I&D in the ED is appropriate without a surgical consult first. Will start workup and call oncall surgeon. 1809: Dr. Daniels here to see patient. Will admit for surgery tomorrow. 1843: Dr. Daniels back. States he is going to have hospitalist admit patient. He performed I&D at bedside with assistance of RN. - Consultations Time: 17:25 (Dr. Daniels notified of patient presence and status. He will come and evaluate patient.) Results - Labs CBC & BMP: 12/18/16 17:20 12/18/16 17:20 Lab Results: I have reviewed the patients labs - Diagnostic Findings Procedure: X-ray: report reviewed by me, image reviewed by me ( Right BKA) Disposition Clinical Impression: Cellulitis, Abscess of right knee, Hypokalemia, Sepsis Case discussed with: patient, patient's family Disposition: Still a Patient Condition: Guarded Time of Disposition: 18:10 (Admit.)
[2016-12-18 17:32] LABS: Basophils # 0.1 10*3/uL (0.0-0.2); Basophils % 0.4 % (0.0-0.8); Eosinophils # 0.7 10*3/uL (0.0-0.87); Eosinophils % 3.2 % (0.00-10.9); Hematocrit 34.1 VOL% (42.0-52.0); Hemoglobin 11.8 GM/DL (14.0-18.0); Immature Granulocytes % 0.4 %; Immature Granulocytes Absolute 0.09 #; Lymphocytes # 1.7 10*3/uL (1.4-4.0); Lymphocytes % 8.1 % (21.2-54.2); Mean Corpuscular HGB Conc 34.6 GM/DL (32-36); Mean Corpuscular Hemoglobin 30 PG (27-34); Mean Corpuscular Volume 87.2 FL (87-102); Mean Platelet Volume 9.5 FL (9.6-12.0); Monocytes # 1.8 10*3/uL (0.11-0.8); Monocytes % 8.5 % (1.7-12.7); Neutrophils # 16.4 10*3/uL (1.4-7.4); Neutrophils % 79.4 % (38.7-73.9); Platelet Count 364 T/CUMM (130-400); Red Blood Count 3.91 MC/CUMM (3.8-5.5); Red Cell Distribution Width 16.1 % (9.3-17.3); White Blood Count 20.7 T/CUMM (4-12)
[2016-12-18 17:59] LABS: Alanine Aminotransferase 14 U/L (16-61); Albumin 2.8 G/DL (3.4-5.0); Alkaline Phosphatase 166 U/L (45-117); Aspartate Amino Transferase 9 U/L (0-37); Bilirubin,Total < 0.39 MG/DL (0.2-1.0); Blood Urea Nitrogen 15 MG/DL (7-18); Calcium 8.9 MG/DL (8.5-10.1); Glucose 54 MG/DL (74-106); Osmolality,Calculated 277.4 MOS/KG (273-304); Potassium 2.9 MMOL/L (3.5-5.1); Sodium 140 MMOL/L (136-145); Total Protein 7.8 G/DL (6.4-8.3)
--- NOTE | 2016-12-18 18:20 | XRay Report ---
XR knee 2V RT Indication: Diabetic. Abscess above the knee joint. Right knee 2 views: Right BKA is present and healed. Soft tissues of the stump are intact without emphysema or radiopaque debris. No fracture, dislocation or bony destruction shown. No periostitis. Impression: Right BKA. PROCEDURE INTERPRETED AT [facility] DEPARTMENT OF RADIOLOGY Final Report Signed by: Philip Adams M.D.
[2016-12-18 18:29] LABS: Band Neutrophils 1 % (0-10); Burr Cells Few; Eosinophils 1 % (0-10); Lymphocytes 9 % (20-55); Platelet Estimate Normal; Poikilocytosis Slight; Segmented Neutrophils 83 % (50-85); Total Cells Counted 100
[2016-12-18 18:30] LABS: Tear Drop Cells Few
[2016-12-18] MEDS ORDERED: ONDANSETRON 4 MG/2 ML VIAL IV STA (18:32)
[2016-12-18] MEDS ORDERED: HYDROmorphone 2 MG/1 ML VIAL IV STA (18:33)
[2016-12-18] MEDS ORDERED: HYDROmorphone 2 MG/1 ML VIAL ONE (18:34)
[2016-12-18] MEDS ORDERED: ONDANSETRON 4 MG/2 ML VIAL ONE (18:34)
--- NOTE | 2016-12-18 19:11 | General Surgery Consult Note ---
Assessment and Plan (1) Abscess of right knee Status: Acute Assessment and plan: Verbal consent was obtained and this was drained in the ER under local anesthetic. Patient tolerated well. Packing was placed. We will place wound orders. Current Visit: Yes History of Present Illness Chief complaint: Right knee pain History of present illness: Mr. Schumacher is a 31 year old male with multiple medical problems who presents to the ER for worsening right knee pain. He noticed a rising over the medial right knee below-knee amputation stump. He is having some tenderness there but no drainage. He also reports nausea and vomiting as well as chronic diarrhea. Home Medications Medication Instructions Recorded Confirmed Type Chlorhexidine 4% Soln [Hibiclens] 1 applic TOP DAILY topical 08/06/15 11/05/16 Rx solution HYDROcodone/ACETAMIN 7.5-325 1 tablet PO Q4H PRN #30 tablet 08/06/15 11/05/16 Rx [[place] 7.5-325] Nicotine 21 mg/24 Hr Patch 1 patch TRANSDERM DAILY PRN #20 08/06/15 11/05/16 Rx [Nicoderm CQ 21 mg/24 hr Patch] patch Sodium Hypochlorite 0.25% Irr 1 applic TOP DAILY irrigation 08/06/15 11/05/16 Rx [Dakins 1/2 Strength 0.25% Soln] Skin Healing Oint (Aquaphor) 1 applic TOP PRN PRN #0 ointment 08/09/15 11/05/16 Rx [Aquaphor] Fluticasone 50 Mcg Nasal [place] 2 spray BOTH NARES DAILY 11/05/16 11/05/16 History [Flonase Nasal [place]] Gabapentin Cap/Tab [Neurontin 600 mg PO TID 11/05/16 11/05/16 History Cap/Tab] Insulin Detemir [Levemir] 10 unit SUBCUT DAILY 11/05/16 11/05/16 History Carvedilol [Coreg] 6.25 mg PO BID W/MEALS #30 tablet 11/16/16 Rx DULoxetine [Cymbalta] 60 mg PO DAILY #30 capsule 11/16/16 Rx Losartan [Cozaar] 25 mg PO DAILY #30 tablet 11/16/16 Rx Pantoprazole Tab [Protonix Tab] 40 mg PO DAILY #30 tablet 11/16/16 Rx Tamsulosin [Flomax] 0.4 mg PO DAILY #30 capsule 11/16/16 Rx Cholestyramine [Questran] 4 gm PO QID PRN #40 pack 12/13/16 Rx Allergies Allergy/AdvReac Type Severity Reaction Status Date / Time No Known Allergies Allergy Unverified 12/13/16 16:32 Medical,Surgical,& Family Hx - Medical History Cardio: History of: CHF Neurology: No history of: Seizures Endocrine: History of: Diabetes Mellitus (IDDM), Diabetes Mellitus (NIDDM) Gastrointestinal: History of: Pancreatitis Musculoskeletal: History of: Amputation (right bka) 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 - Surgical History Orthopedic Surgeries: Surgical HX of;: Orthopedic Surgery (Right BKA) - Family History Family History: Reports;: Family Diabetes (mother), Family Hypertension, Family Stroke - Social History Smoking Status: Smoker, status unknown - Constitutional Constitutional: Present: as per HPI - EENT Nose, mouth and throat: Present: as per HPI - Cardiovascular Cardiovascular: Present: as per HPI - Respiratory Respiratory: Present: as per HPI - Gastrointestinal Gastrointestinal: Present: as per HPI - Genitourinary Genitourinary: Present: as per HPI - Musculoskeletal Musculoskeletal: Present: as per HPI - Neurological Neurological: Present: as per HPI - Endocrine Endocrine: Present: as per HPI Hematologic/Lymphatic: Present: as per HPI Exam - Constitutional Vitals: Period Temp Pulse Resp BP Sys/Greene Pulse Ox Last 24 Hr 98.4 F-98.4 F 102-102 16-16 143-143/85-85 98 General appearance: normal weight, no acute distress - Head Head exam: Present: normal inspection, normocephalic - Eye Eye exam: Present: EOMI Pupils: Present: LINDSEY - ENT ENT exam: Present: normal exam Mouth exam: Present: normal external inspection, normal voice - Neck Neck exam: Present: normal inspection, trachea midline - Respiratory Respiratory exam: Present: clear to auscultation bilaterally. Absent: accessory muscle use, chest wall tenderness - Cardiovascular Cardiovascular exam: Present: RRR. Absent: systolic murmur, tachycardia - GI/Abdominal GI/Abdominal exam: Present: normal bowel sounds, soft. Absent: distended, tenderness, rebound - Extremities Exam Extremities exam: Present: other (There is an abscess on the right medial knee. He was drained in the ER with verbal consent and pus was released and cultured.) - Neurological Exam Neurological exam: Present: alert, oriented X3 Speech: Present: normal - Skin Skin exam: Present: normal color, warm Results - Labs CBC & BMP: 12/18/16 17:20 12/18/16 17:20 - Diagnostic Findings Procedure: X-ray: image reviewed by me, report reviewed by me (Right knee x-ray reviewed)
--- NOTE | 2016-12-18 19:13 | Hospitalist History & Physical ---
Assessment and Plan - Time spent with patient Time spent with patient: Greater than 30 minutes Time spent discussing smoking cessation with patient: 3 to 10 minutes (1) Sepsis Status: Acute Assessment and plan: Patient has abscess of the right medial knee which is now been I&D at the bedside by Dr. Daniels. He also has a leukocytosis and is tachycardic therefore he meets sirs criteria and meets the definition for sepsis. Lactic acid is currently pending. We will initiate cultures of his blood urine and abscess and begin empiric IV antibiotic therapy. Further workup will be performed based on patient's clinical response and results of the pending database. Current Visit: Yes (2) Hypokalemia Status: Acute Assessment and plan: Potassium is 2.9. Likely secondary to his diarrheal illness. Will supplement and follow-up levels throughout the night and in the a.m. Current Visit: Yes (3) Diabetes mellitus Status: Chronic Assessment and plan: He has diabetes mellitus and requires insulin therapy however he has had hypoglycemia on several occasions, therefore I will place him on Accu-Cheks with sliding scale insulin only at this time. Current Visit: No Qualifiers: Diabetes mellitus type: type 2 Diabetes mellitus complication status: with unspecified complications Diabetes mellitus keno terminal operator insulin use: unspecified keno terminal operator insulin use status Qualified Code(s): E11.8 - Type 2 diabetes mellitus with unspecified complications (4) Diarrhea Status: Chronic Assessment and plan: He has diarrhea which is been chronic. Will repeat stool studies at this time and await prior to further therapy. Will continue his Questran, hydration, and consider GI follow-up if there are any new findings. Current Visit: No (5) Hypertension Status: Chronic Assessment and plan: Patient has hypertension which is currently stable. We will continue his current medical regimen. Current Visit: No Qualifiers: Hypertension type: essential hypertension Qualified Code(s): I10 - Essential (primary) hypertension (6) Idiopathic cardiomyopathy Status: Chronic Assessment and plan: Patient has a cardiomyopathy with ejection fraction noted to be 20%. At this time he appears to be well compensated. Will cautiously hydrate while continuing his routine home medications. Current Visit: No History of Present Illness Chief complaint: Absent on right knee History of present illness: Mr. Schumacher is a 31 year old -[place] male who presents today primarily for sore that he has had on the medial aspect of his right knee which is been treated at home but worsening with swelling and redness spreading up his medial right thigh. He denies any fever or chills but has had nausea with some vomiting. He is also been admitted in the past for diarrhea and had extensive workup but has persistent loose watery stools on multiple occasions per day. He denies any chest pain, shortness of breath, cough, sputum production, melena , hematochezia, hematemesis. He states his urine has been dark yellow. He has had some unquantitated weight loss which he states fluctuates. He was seen in the emergency room initially by Dr. Daniels and had I&D of abscess at the bedside , however because of his leukocytosis and electrolyte abnormalities it was felt he would benefit for continued care in the hospital. His primary care provider is at the [facility]. Home Medications Medication Instructions Recorded Confirmed Type Chlorhexidine 4% Soln [Hibiclens] 1 applic TOP DAILY topical 08/06/15 11/05/16 Rx solution HYDROcodone/ACETAMIN 7.5-325 1 tablet PO Q4H PRN #30 tablet 08/06/15 11/05/16 Rx [[place] 7.5-325] Nicotine 21 mg/24 Hr Patch 1 patch TRANSDERM DAILY PRN #20 08/06/15 11/05/16 Rx [Nicoderm CQ 21 mg/24 hr Patch] patch Sodium Hypochlorite 0.25% Irr 1 applic TOP DAILY irrigation 08/06/15 11/05/16 Rx [Dakins 1/2 Strength 0.25% Soln] Skin Healing Oint (Aquaphor) 1 applic TOP PRN PRN #0 ointment 08/09/15 11/05/16 Rx [Aquaphor] Fluticasone 50 Mcg Nasal [place] 2 spray BOTH NARES DAILY 11/05/16 11/05/16 History [Flonase Nasal [place]] Gabapentin Cap/Tab [Neurontin 600 mg PO TID 11/05/16 11/05/16 History Cap/Tab] Insulin Detemir [Levemir] 10 unit SUBCUT DAILY 11/05/16 11/05/16 History Carvedilol [Coreg] 6.25 mg PO BID W/MEALS #30 tablet 11/16/16 Rx DULoxetine [Cymbalta] 60 mg PO DAILY #30 capsule 11/16/16 Rx Losartan [Cozaar] 25 mg PO DAILY #30 tablet 11/16/16 Rx Pantoprazole Tab [Protonix Tab] 40 mg PO DAILY #30 tablet 11/16/16 Rx Tamsulosin [Flomax] 0.4 mg PO DAILY #30 capsule 11/16/16 Rx Cholestyramine [Questran] 4 gm PO QID PRN #40 pack 12/13/16 Rx Allergies Allergy/AdvReac Type Severity Reaction Status Date / Time No Known Allergies Allergy Unverified 12/13/16 16:32 Medical,Surgical,& Family Hx - Medical History Cardio: History of: CHF (Previous ejection fraction of 20%) Neurology: No history of: Seizures Endocrine: History of: Diabetes Mellitus (IDDM) Gastrointestinal: History of: Pancreatitis Musculoskeletal: History of: Amputation (right bka) 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 - Surgical History Orthopedic Surgeries: Surgical HX of;: Orthopedic Surgery (Right BKA) - Family History Family History: Reports;: Family Diabetes (mother), Family Hypertension, Family Stroke - Social History Smoking Status: Current some day smoker Have you smoked in the last 12 months: Yes Frequency of Alcohol Use: None Type of Drug Use: None 12 point system: reviewed and no additional remarkable complaints except as stated Exam - Constitutional Vitals: Period Temp Pulse Resp BP Sys/[place] Pulse Ox Last 24 Hr 98.4 F-98.4 F 102-102 16-16 143-143/85-85 98 General appearance: no acute distress - Head Head exam: Present: normocephalic, atraumatic - Eye Eye exam: Present: EOMI Pupils: Present: LINDSEY - ENT ENT exam: Present: normal oropharynx - Neck Neck exam: Present: normal inspection - Respiratory Respiratory exam: Present: clear to auscultation bilaterally. Absent: rales, rhonchi, wheezes - Cardiovascular Cardiovascular exam: Present: regular rate and rhythm, tachycardia. Absent: systolic murmur - GI/Abdominal GI/Abdominal exam: Present: normal bowel sounds, soft. Absent: distended, mass , tenderness, rebound - Extremities Exam Extremities exam: Present: other (Right below the knee amputation, tender swollen erythematous lesion on the right medial knee with some minimal red streaking of the medial thigh). Absent: calf tenderness, edema - Neurological Exam Neurological exam: Present: alert, oriented X3, CN II-XII intact. Absent: motor sensory deficit - Psychiatric Psychiatric exam: Present: normal affect, normal mood. Absent: agitated, anxious - Skin Skin exam: Present: warm, dry Results - Labs CBC & BMP: 12/18/16 17:20 12/18/16 17:20 Lab Results: I have reviewed the past 24 hour labs
--- NOTE | 2016-12-18 19:15 | Operative Note ---
Date of procedure: 12/18/16 Pre-op diagnosis: Right knee abscess Post-op diagnosis: same Procedure: Preoperative diagnosis Right knee abscess Postoperative diagnosis Same Procedures performed Incision and drainage of right knee abscess Findings Right medial knee abscess was drained at bedside. Pus is obtained. Cultures were sent. Complications None apparent Specimen Cultures Anesthesia Local anesthetic Blood loss Minimal Indications Right knee abscess Description of procedure The patient was placed supine in his ER bed. Preparation was performed with Betadine of the operative site. Timeout was called. Local anesthetic was administered. The abscess was drained and pus was obtained from the right medial knee. He was drained with a 11 blade scalpel. Loculations were broken up digitally. The wound was irrigated and packed with iodoform packing gauze. He was dressed with a dry gauze dressing with cast padding and Huan wrap. Patient tolerated procedure well. Postoperative plan Continue wound care and antibiotics Follow-up cultures Anesthesia: local Surgeon / Physician: Tu Daniels Results - Labs CBC & BMP: 12/18/16 17:20 12/18/16 17:20 Discharge Plan - Discharge Medications No Action Chlorhexidine 4% Soln [Hibiclens] 1 applic TOP DAILY topical solution HYDROcodone/ACETAMIN 7.5-325 [[place] 7.5-325] 1 tablet PO Q4H PRN #30 tablet PRN Reason: Pain Moderate (4-7) Nicotine 21 mg/24 Hr Patch [Nicoderm CQ 21 mg/24 hr Patch] 1 patch TRANSDERM DAILY PRN #20 patch PRN Reason: Nicotine Cravings Sodium Hypochlorite 0.25% Irr [Dakins 1/2 Strength 0.25% Soln] 1 applic TOP DAILY irrigation Skin Healing Oint (Aquaphor) [Aquaphor] 1 applic TOP PRN PRN #0 ointment PRN Reason: Dry Skin Insulin Detemir [Levemir] 10 unit SUBCUT DAILY Carvedilol [Coreg] 6.25 mg PO BID W/MEALS #30 tablet DULoxetine [Cymbalta] 60 mg PO DAILY #30 capsule Pantoprazole Tab [Protonix Tab] 40 mg PO DAILY #30 tablet Tamsulosin [Flomax] 0.4 mg PO DAILY #30 capsule Cholestyramine [Questran] 4 gm PO QID PRN #40 pack PRN Reason: Diarrhea Fluticasone 50 Mcg Nasal [place] [Flonase Nasal [place]] 2 spray BOTH NARES DAILY Gabapentin Cap/Tab [Neurontin Cap/Tab] 600 mg PO TID Losartan [Cozaar] 25 mg PO DAILY #30 tablet - Follow Up or Referral - Forms/Instructions
[2016-12-18] MEDS ORDERED: POTASSIUM CHLORIDE 20 MEQ TABLET PO PRN (20:11)
[2016-12-18] MEDS ORDERED: NICOTINE 21 MG/24 HR PATCH TRANSDERM PRN (20:11)
[2016-12-18] MEDS ORDERED: GLUCAGON 1 MG VIAL IM PRN (20:11)
[2016-12-18] MEDS ORDERED: CHOLESTYRAMINE 4 GM PACK PO PRN (20:11)
[2016-12-18] MEDS ORDERED: DEXTROSE 50% 25 GM/50 ML SYRINGE IV PRN (20:11)
[2016-12-18] MEDS: ENOXAPARIN 40 MG/0.4 ML SYRINGE SUBCUT SCH (22:08)
[2016-12-18] MEDS: SODIUM CHLORIDE 0.9% 1,000 ML IV SCH (22:09)
[2016-12-18] MEDS: VANCOMYCIN INJ 750 MG in SODIUM CHLORIDE 0.9% 250 ML IV SCH (22:09)
[2016-12-18] MEDS: GABAPENTIN 600 MG TABLET PO SCH (22:09)
[2016-12-18] MEDS: INSULIN LISPRO 100 UNIT/ML SUBCUT SCH (22:10)
[2016-12-18] MEDS: POTASSIUM CHLORIDE RIDER 10 MEQ in PREMIX 1 EACH IV PRN (22:11)
[2016-12-18] MEDS: PIPERACILLIN/TAZOBACTAM 3,375 MG in SODIUM CHLORIDE 0.9% 100 ML IV SCH (23:59)
[2016-12-19] MEDS: POTASSIUM CHLORIDE RIDER 10 MEQ in PREMIX 1 EACH IV PRN ×4 (01:09→06:32)
[2016-12-19 06:27] LABS: Basophils # 0.1 10*3/uL (0.0-0.2); Basophils % 0.3 % (0.0-0.8); Eosinophils # 0.6 10*3/uL (0.0-0.87); Hematocrit 28.3 VOL% (42.0-52.0); Hemoglobin 9.7 GM/DL (14.0-18.0); Immature Granulocytes % 0.5 %; Immature Granulocytes Absolute 0.09 #; Lymphocytes # 2.2 10*3/uL (1.4-4.0); Lymphocytes % 12.4 % (21.2-54.2); Mean Corpuscular HGB Conc 34.3 GM/DL (32-36); Mean Corpuscular Hemoglobin 30 PG (27-34); Mean Corpuscular Volume 87.3 FL (87-102); Mean Platelet Volume 10.2 FL (9.6-12.0); Monocytes # 1.5 10*3/uL (0.11-0.8); Monocytes % 8.3 % (1.7-12.7); Neutrophils # 13.6 10*3/uL (1.4-7.4); Neutrophils % 75.5 % (38.7-73.9); Platelet Count 344 T/CUMM (130-400); Red Blood Count 3.24 MC/CUMM (3.8-5.5); Red Cell Distribution Width 15.9 % (9.3-17.3); White Blood Count 18.1 T/CUMM (4-12)
[2016-12-19 06:54] LABS: Calcium 8.5 MG/DL (8.5-10.1); Osmolality,Calculated 280.5 MOS/KG (273-304); Potassium 3.7 MMOL/L (3.5-5.1)
[2016-12-19] MEDS: INSULIN LISPRO 100 UNIT/ML SUBCUT SCH ×4 (08:32→20:44)
[2016-12-19] MEDS: GABAPENTIN 600 MG TABLET PO SCH ×3 (08:52→20:44)
[2016-12-19] MEDS: CARVEDILOL 6.25 MG TABLET PO SCH ×2 (08:52→17:51)
[2016-12-19] MEDS: DULoxetine 30 MG CAPSULE PO SCH (08:52)
[2016-12-19] MEDS: TAMSULOSIN 0.4 MG CAPSULE PO SCH (08:52)
[2016-12-19] MEDS: VANCOMYCIN INJ 750 MG in SODIUM CHLORIDE 0.9% 250 ML IV SCH ×2 (08:53→20:41)
[2016-12-19] MEDS: FLUTICASONE 50 MCG NASAL SPRAY 16 GM BOTTLE BOTH NARES SCH (09:42)
[2016-12-19] MEDS: SODIUM CHLORIDE 0.9% 1,000 ML IV SCH ×2 (09:43→22:45)
--- NOTE | 2016-12-19 10:41 | Event Note ---
General Surgery Progress Note Chief complaint This patient is a 31-year-old man with diabetes admitted with abscess of the right medial knee below-knee amputation stump that was treated with incision and drainage in the ER on 12/18/2016 Interval history No events overnight. Pain is well controlled. Afebrile. Cultures show gram- positive cocci. Physical exam The patient is afebrile with normal vital signs His right medial knee incision was unpacked and there is no further purulent drainage. There is still some induration around the wound. Labs Reviewed, improved Imaging None new Assessment and plan Continue antibiotics and wound care
[2016-12-19] MEDS: PIPERACILLIN/TAZOBACTAM 3,375 MG in SODIUM CHLORIDE 0.9% 100 ML IV SCH ×2 (11:18→18:30)
[2016-12-19] MEDS: ONDANSETRON 4 MG/2 ML VIAL IV PRN ×2 (13:05→17:52)
--- NOTE | 2016-12-19 14:12 | Hospitalist Progress Note ---
Assessment and Plan (1) Abscess of right knee Status: Acute Assessment and plan: s/p Iand D WC grew gram positive cocci. Continue IV Zosyn and Vanc Appreciates Surgery's input. Current Visit: Yes (2) Diabetes mellitus Status: Chronic Assessment and plan: add Lantus 10unit qhs, continue SSC, will get HbA1c level. Current Visit: No Qualifiers: Diabetes mellitus type: type 2 Diabetes mellitus complication status: with unspecified complications Diabetes mellitus terminal operations manager insulin use: unspecified terminal operations manager insulin use status Qualified Code(s): E11.8 - Type 2 diabetes mellitus with unspecified complications (3) Hypertension Status: Chronic Assessment and plan: stable Current Visit: No Qualifiers: Hypertension type: essential hypertension Qualified Code(s): I10 - Essential (primary) hypertension (4) Acute renal failure Status: Acute Assessment and plan: continue with IVF, avoid Nephrotoxics Current Visit: Yes (5) Hypokalemia Status: Acute Assessment and plan: repleted Current Visit: Yes (6) Diarrhea Status: Chronic Assessment and plan: follow stool studies Current Visit: No (7) Idiopathic cardiomyopathy Status: Chronic Assessment and plan: Patient has a cardiomyopathy with ejection fraction noted to be 20%. At this time he appears to be well compensated. Will cautiously hydrate while continuing his routine home medications. Current Visit: No Hospitalist: Subjective Interval history: Patient seen this am with no new complaints.His dressing was changed this am.He had an Incision and drainage done yesterday.WC grew gram positive cocci. Exam - Constitutional Vitals: Period Temp Pulse Resp BP Sys/[place] Pulse Ox Last 24 Hr 97.5 F-98.7 F 75-102 16-20 116-156/70-90 98-100 General appearance: no acute distress - Head Head exam: Present: normal inspection - Respiratory Respiratory exam: Present: clear to auscultation bilaterally - Cardiovascular Cardiovascular exam: Present: regular rate and rhythm - GI/Abdominal GI/Abdominal exam: Present: normal bowel sounds - Extremities Exam Extremities exam: Present: other (right bka) - Neurological Exam Neurological exam: Present: alert, oriented X3 Results - Labs CBC & BMP: 12/19/16 06:07 12/19/16 11:45 Lab Results: I have reviewed the past 24 hour labs
[2016-12-19] MEDS: INSULIN GLARGINE 100 UNIT/ML SUBCUT SCH (20:43)
[2016-12-19] MEDS: ENOXAPARIN 40 MG/0.4 ML SYRINGE SUBCUT SCH (20:43)
[2016-12-20] MEDS: PIPERACILLIN/TAZOBACTAM 3,375 MG in SODIUM CHLORIDE 0.9% 100 ML IV SCH ×3 (03:51→18:02)
[2016-12-20 06:33] LABS: Basophils % 0.4 % (0.0-0.8); Eosinophils # 0.7 10*3/uL (0.0-0.87); Eosinophils % 6.7 % (0.00-10.9); Hematocrit 26.6 VOL% (42.0-52.0); Hemoglobin 9.1 GM/DL (14.0-18.0); Immature Granulocytes % 0.5 %; Immature Granulocytes Absolute 0.05 #; Lymphocytes # 1.8 10*3/uL (1.4-4.0); Lymphocytes % 16.2 % (21.2-54.2); Mean Corpuscular HGB Conc 34.2 GM/DL (32-36); Mean Corpuscular Hemoglobin 30 PG (27-34); Mean Corpuscular Volume 88.7 FL (87-102); Mean Platelet Volume 10.1 FL (9.6-12.0); Monocytes # 1.2 10*3/uL (0.11-0.8); Monocytes % 10.6 % (1.7-12.7); Neutrophils # 7.2 10*3/uL (1.4-7.4); Neutrophils % 65.6 % (38.7-73.9); Platelet Count 335 T/CUMM (130-400); Red Cell Distribution Width 16.2 % (9.3-17.3); White Blood Count 10.9 T/CUMM (4-12)
[2016-12-20 07:12] LABS: Calcium 8.5 MG/DL (8.5-10.1); Osmolality,Calculated 281.3 MOS/KG (273-304); Potassium 3.5 MMOL/L (3.5-5.1)
[2016-12-20 07:22] LABS: Risk Ratio 2.66; VLDL CHOLESTEROL 12.6 MG/DL
[2016-12-20 07:28] LABS: Free T4 (Free Thyroxine) 1.34 NG/DL (0.76-1.46); Thyroid Stimulating Hormone 1.71 uIU/ml (0.358-3.74)
[2016-12-20] MEDS: INSULIN LISPRO 100 UNIT/ML SUBCUT SCH ×4 (08:11→21:34)
--- NOTE | 2016-12-20 08:42 | Event Note ---
General Surgery Progress Note Chief complaint This patient is a 31-year-old man with diabetes admitted with abscess of the right medial knee below-knee amputation stump that was treated with incision and drainage in the ER on 12/18/2016 Interval history No events overnight. Patient ended up having a blood culture come back positive 1 out of 2 from the ER. This is gram-positive cocci. Wound also has gram-positive cocci. White blood cell count is normal and patient is afebrile. Physical exam The patient is afebrile with normal vital signs His right medial knee incision was unpacked and there is no further purulent drainage. There is good granulation tissue Labs Reviewed, improved Imaging None new Assessment and plan The patient can be discharged home once she is medically stable. I do notice that 1 out of 2 blood culture positive. This could be contaminant. I will defer to the medical team regarding this treatment. From a wound care standpoint I would recommend a one-week follow-up with me with continued wound care packing once daily and continue with antibiotics for which clindamycin would be a good empiric choice until the final cultures returned. I will continue to follow him while he is in-house but if he is discharged home I will arrange for follow-up as an outpatient.
[2016-12-20] MEDS: GABAPENTIN 600 MG TABLET PO SCH ×3 (08:46→21:07)
[2016-12-20] MEDS: TAMSULOSIN 0.4 MG CAPSULE PO SCH (08:48)
[2016-12-20] MEDS: CARVEDILOL 6.25 MG TABLET PO SCH ×2 (08:48→17:20)
[2016-12-20] MEDS: DULoxetine 30 MG CAPSULE PO SCH (08:48)
[2016-12-20] MEDS: VANCOMYCIN INJ 750 MG in SODIUM CHLORIDE 0.9% 250 ML IV SCH ×3 (09:35→21:20)
[2016-12-20] MEDS: FLUTICASONE 50 MCG NASAL SPRAY 16 GM BOTTLE BOTH NARES SCH (09:35)
[2016-12-20 12:31] LABS: Apearance,Urine CLEAR (Clear); Bilirubin,Urine Negative (Negative); Blood, Urine Negative (Negative); Glucose,Urine (UA) Negative (Negative); Ketones,Urine Negative (Negative); Mucus,Urine Occasional /LPF (Occasional); Nitrite,Urine Negative (Negative); Protein,Urine 30 MG/DL; RBC,Urine 5 /HPF (0-4); Squamous Epithelial Cell,Urine Occasional /HPF (0-10); Urine Color Straw (Yellow); Urine Specific Gravity 1.012 (1.001-1.035); Urine Urobilinogen < 2.0 EU/DL (0.2-1.0); WBC,Urine <1 /HPF (0-6)
[2016-12-20] MEDS: SODIUM CHLORIDE 0.9% 1,000 ML IV SCH (13:43)
--- NOTE | 2016-12-20 14:23 | Hospitalist Progress Note ---
Assessment and Plan (1) Abscess of right knee Status: Acute Assessment and plan: s/p Iand D WC grew staph-senstive to all antibiotics Plan dc vanc continue with Zosyn . Hopefully dc in am. Current Visit: Yes (2) Diabetes mellitus Status: Chronic Assessment and plan: continue SSC, current regime, HbA1c level-8.7 DM teaching Current Visit: No Qualifiers: Diabetes mellitus type: type 2 Diabetes mellitus complication status: with unspecified complications Diabetes mellitus buttermaker insulin use: unspecified buttermaker insulin use status Qualified Code(s): E11.8 - Type 2 diabetes mellitus with unspecified complications (3) Hypertension Status: Chronic Assessment and plan: stable Current Visit: No Qualifiers: Hypertension type: essential hypertension Qualified Code(s): I10 - Essential (primary) hypertension (4) Acute renal failure Status: Acute Assessment and plan: continue with IVF, avoid Nephrotoxics Current Visit: Yes (5) Hypokalemia Status: Acute Assessment and plan: repleted Current Visit: Yes (6) Diarrhea Status: Chronic Assessment and plan: stool studies-negative so far Current Visit: No (7) Idiopathic cardiomyopathy Status: Chronic Assessment and plan: Patient has a cardiomyopathy with ejection fraction noted to be 20%. At this time he appears to be well compensated. Will cautiously hydrate while continuing his routine home medications. Current Visit: No Hospitalist: Subjective Interval history: Patient seen. No new complaints. 1 out of 2 blood cultures was positive. Exam - Constitutional Vitals: Period Temp Pulse Resp BP Sys/Greene Pulse Ox Last 24 Hr 96.7 F-98.1 F 69-77 18-18 104-124/63-75 97-100 General appearance: no acute distress - Head Head exam: Present: normal inspection - Respiratory Respiratory exam: Present: clear to auscultation bilaterally - Cardiovascular Cardiovascular exam: Present: regular rate and rhythm - GI/Abdominal GI/Abdominal exam: Present: normal bowel sounds - Extremities Exam Extremities exam: Present: other (right bka) - Neurological Exam Neurological exam: Present: alert, oriented X3 Results - Labs CBC & BMP: 12/20/16 05:46 12/20/16 05:45 Lab Results: I have reviewed the past 24 hour labs Specialty Discharge - Follow Up or Referrals Follow up with: Tu Dainels MD [Physician] - 1 Week
[2016-12-20] MEDS: ENOXAPARIN 40 MG/0.4 ML SYRINGE SUBCUT SCH (21:07)
[2016-12-20] MEDS: INSULIN GLARGINE 100 UNIT/ML SUBCUT SCH (21:34)
[2016-12-21] MEDS: PIPERACILLIN/TAZOBACTAM 3,375 MG in SODIUM CHLORIDE 0.9% 100 ML IV SCH ×2 (02:53→11:27)
--- NOTE | 2016-12-21 08:01 | Discharge Summary ---
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 This was associated with diarrhea and dehydration. Dr. Daniels had been consulted and performed an I&D at the bedside but because of his leukocytosis and electrolyte abnormalities he was admitted to the hospital. Patient was continued on antibiotics for a couple days due to induration around the wound but there is no further purulent drainage. Patient is feeling better. His white count is normal and his creatinine is slowly improving. His blood cultures were positive 1 out of 2 and this is most likely a contaminant. His abscess cultures grew staph aureus that is sensitive to everything. Dr. Daniels is recommending clindamycin for at least 7days upon discharge. Patient will be discharged today with a one-week follow-up with Dr. Daniels. He will be given pain medication and antibiotics. Care coordination, chart review, and completed discharge paperwork took approximately 37 minutes.Vitals are stable, patient will be dcd today. - Time spent with patient Time with patient DS: Greater than 30 minutes Specialty Discharge - Follow Up or Referrals Follow up with: Tu Daniels MD [Physician] - 12/28/16 10:30 am Discharge Plan - Discharge Data Disposition: Disch To Home/Self Care - Discharge Medications New Carvedilol [Coreg] 6.25 mg PO BID W/MEALS #60 tablet Cholestyramine [Questran] 4 gm PO QID PRN PRN Reason: Diarrhea Clindamycin HCl [Clindamycin Cap] 450 mg PO Q8HR #30 capsule Fluticasone 50 Mcg Nasal [place] [Flonase Nasal [place]] 2 spray BOTH NARES DAILY spray HYDROcodone/ACETAMIN 5-325 [[place] 5-325] 1 tablet PO Q4H PRN #20 tablet PRN Reason: Pain Mild (1-3) Nicotine 21 mg/24 Hr Patch [Nicoderm CQ 21 mg/24 hr Patch] 1 patch TRANSDERM DAILY PRN #7 patch PRN Reason: Nicotine Cravings Tamsulosin [Flomax] 0.4 mg PO DAILY capsule Insulin Glargine [Lantus] 10 unit SUBCUT BEDTIME #7 unit Continue Insulin Detemir [Levemir] 10 unit SUBCUT DAILY DULoxetine [Cymbalta] 60 mg PO DAILY #30 capsule Insulin Regular [HumuLIN R] See Protocol SUBCUT ACHS Gabapentin Cap/Tab [Neurontin Cap/Tab] 600 mg PO TID Rabeprazole Sodium [Aciphex Tab] 20 mg PO DAILY - Follow Up or Referral Follow Up: Tu aDniels MD [Physician] - 12/28/16 10:30 am - Forms/Instructions Instructions: Diabetic Foot Care (DC), Diabetes Mellitus Type 2 in Adults (DC) , Diabetes Mellitus Type 2 in Adults (GEN) Exam - Constitutional Vitals: Period Temp Pulse Resp BP Sys/Greene Pulse Ox Last 24 Hr 96.8 F-97.8 F 75-82 18-20 98-133/58-77 100-100 Discharge Results Procedures and tests throughout hospitalization: Pending Orders 12/18/16 19:02 Urinalysis Stat 12/18/16 19:43 Blood Culture Stat Labs on day of discharge: Labs from last 24 hours 12/21/16 12/20/16 12/20/16 07:44 20:21 19:33 POC Glucose 119 H 273 H Urine Color Urine Appearance Urine pH Ur Specific [place] Urine Protein Urine Glucose (UA) Urine Ketones Urine Blood Urine Nitrate Urine Bilirubin Urine Urobilinogen Urine Leukocytes Urine RBC Urine WBC Ur Squamous Epith Cells Urine Mucus Ur Culture Indicated? Vancomycin Trough 25.9 H 12/20/16 12/20/16 12/20/16 15:27 15:00 14:46 POC Glucose 212 H 90 46 L* Urine Color Urine Appearance Urine pH Ur Specific [place] Urine Protein Urine Glucose (UA) Urine Ketones Urine Blood Urine Nitrate Urine Bilirubin Urine Urobilinogen Urine Leukocytes Urine RBC Urine WBC Ur Squamous Epith Cells Urine Mucus Ur Culture Indicated? Vancomycin Trough 12/20/16 12/20/16 12/20/16 14:30 14:26 10:21 POC Glucose 43 L* 39 L* Urine Color Straw Urine Appearance Clear Urine pH 5.0 Ur Specific [place] 1.012 Urine Protein 30 Urine Glucose (UA) Negative Urine Ketones Negative Urine Blood Negative Urine Nitrate Negative Urine Bilirubin Negative Urine Urobilinogen < 2.0 H Urine Leukocytes Negative Urine RBC 5 Urine WBC <1 Ur Squamous Epith Cells Occasional Urine Mucus Occasional Ur Culture Indicated? Not indicated Vancomycin Trough Preliminary micro results at discharge 12/18/16 19:43 Blood Culture - Preliminary Blood Gram Positive Cocci 12/18/16 19:43 Blood Culture - Preliminary Blood No growth at 1 day DS: Provider Date of admission: 12/18/16 19:00 Primary care physician: . No PCP Attending physician on admission: Trung Gilmore MD Consults: 12/18/16 19:08 Consult to Pharmacy [CONS] Routine Reason for Pharmacy Consult: Dose/Manage Vancomycin 12/18/16 20:11 Consult to Physician [CONS] Routine Comment: Consulting Provider: Tu Daniels Person Notified: MD AWARE Date Notified: 12/19/16 Time Notified: 09:11 12/19/16 13:49 Consult to Physical Therapy [CONS] Routine Reason for Physical Therapy: Crutch Training Start Therapy: Today 12/20/16 01:50 Consult to [facility], Educator [CONS] Routine Reason for Firesetter: Diabetes Education 12/20/16 14:24 Consult to Diabetes Center, Educator [CONS] Routine Reason for Firesetter: Diabetes Education Discharging clinician: YIN Campbell Expected date of discharge: 12/21/16 <Argentina Snyder - Last Filed: 12/21/16 12:22> Hospital Course - Time spent with patient Time with patient DS: Greater than 30 minutes (Time spent greater than 35mins) Diagnosis - Discharge Diagnosis (1) Abscess of right knee Status: Acute (2) Diabetes mellitus Status: Chronic (3) Hypertension Status: Chronic (4) Acute renal failure Status: Acute (5) Hypokalemia Status: Acute (6) Diarrhea Status: Inactive (7) Idiopathic cardiomyopathy Status: Chronic Discharge Plan - Discharge Data Condition at Discharge: Stable Discharge Diet: diabetic diet Activity: resume usual activities as tolerated - Forms/Instructions Additional Discharge Instructions: Follow with PCP in 1week Exam - Constitutional General appearance: no acute distress - Head Head exam: Present: normal inspection - Respiratory Respiratory exam: Present: clear to auscultation bilaterally - Cardiovascular Cardiovascular exam: Present: regular rate and rhythm - Extremities Exam Extremities exam: Present: other (right bka) - Neurological Exam Neurological exam: Present: alert, oriented X3
[2016-12-21] MEDS: INSULIN LISPRO 100 UNIT/ML SUBCUT SCH ×2 (08:07→12:36)
[2016-12-21] MEDS: TAMSULOSIN 0.4 MG CAPSULE PO SCH (08:42)
[2016-12-21] MEDS: CARVEDILOL 6.25 MG TABLET PO SCH (08:42)
[2016-12-21] MEDS: GABAPENTIN 600 MG TABLET PO SCH ×2 (08:42→15:30)
[2016-12-21] MEDS: SODIUM CHLORIDE 0.9% 1,000 ML IV SCH (08:43)
[2016-12-21] MEDS: DULoxetine 30 MG CAPSULE PO SCH (08:43)
[2016-12-21] MEDS: FLUTICASONE 50 MCG NASAL SPRAY 16 GM BOTTLE BOTH NARES SCH (08:47)
--- NOTE | 2016-12-21 09:20 | Event Note ---
General Surgery Progress Note Chief complaint This patient is a 31-year-old man with diabetes admitted with abscess of the right medial knee below-knee amputation stump that was treated with incision and drainage in the ER on 12/18/2016 Interval history No events overnight. Cultures have grown MSSA sensitive to clindamycin. Blood culture finals are still pending but MRSA was negative and still only 1 out of 2 positive cultures. Patient is doing well. Physical exam The patient is afebrile with normal vital signs His right medial knee incision was unpacked and there is no further purulent drainage. There is good granulation tissue Labs Reviewed, improved Imaging None new Assessment and plan I can manage the patient's wound as an outpatient at this point but would recommend clindamycin for at least 1 week with follow-up with me next week as far as his wound goes. I will defer to his medical team about the significance of 1 out of 2 blood cultures that were drawn in the ER.
[2016-12-21] MEDS: ONDANSETRON 4 MG/2 ML VIAL IV PRN (11:40)
[2016-12-21 13:39] VITALS: BP 127/85
[2016-12-21] MEDS ORDERED: VANCOMYCIN INJ 750 MG in SODIUM CHLORIDE 0.9% 250 ML IV SCH (21:00)
== END 2016-12-21 16:06 | disposition home or self-care (01) | DRG 872 ==
LOC: N.EDINP 15:12 → N.ED 15:12 → OBSVTOIN 19:00 → SUATTDRO 19:00 → N.5E 19:30
PROVIDERS: ADMIT Family Medicine; ATTEND Internal Medicine

== ENCOUNTER 2017-11-29 11:50 | Inpatient (IN) ==
[2017-11-29 14:03] LABS: Basophils % 0.2 % (0.0-0.8); Eosinophils # 0.3 10*3/uL (0.0-0.87); Eosinophils % 1.8 % (0.00-10.9); Hematocrit 24.9 VOL% (42.0-52.0); Hemoglobin 8.3 GM/DL (14.0-18.0); Immature Granulocytes % 0.4 %; Immature Granulocytes Absolute 0.06 #; Lymphocytes % 12.4 % (21.2-54.2); Mean Corpuscular HGB Conc 33.3 GM/DL (32-36); Mean Corpuscular Hemoglobin 31 PG (27-34); Monocytes # 1.6 10*3/uL (0.11-0.8); Monocytes % 9.8 % (1.7-12.7); Neutrophils # 12.2 10*3/uL (1.4-7.4); Neutrophils % 75.4 % (38.7-73.9); Platelet Count 299 T/CUMM (130-400); Red Blood Count 2.65 MC/CUMM (3.8-5.5); White Blood Count 16.2 T/CUMM (4-12)
[2017-11-29 14:12] LABS: INR 0.9; PT Patient Result 9.4 SECS
[2017-11-29 14:17] LABS: Lactic Acid 2.3 MMOL/L (0.4-2.0)
[2017-11-29] MEDS ORDERED: SODIUM CHLORIDE 0.9% 1,000 ML IV STA (14:19)
[2017-11-29 14:34] LABS: Alanine Aminotransferase 18 U/L (16-61); Albumin 2.3 G/DL (3.4-5.0); Alkaline Phosphatase 122 U/L (45-117); Aspartate Amino Transferase 12 U/L (0-37); Bilirubin,Total < 0.39 MG/DL (0.2-1.0); Blood Urea Nitrogen 19 MG/DL (7-18); Calcium 8.8 MG/DL (8.5-10.1); Glucose 274 MG/DL (74-106); Osmolality,Calculated 286.7 MOS/KG (273-304); Potassium 4.7 MMOL/L (3.5-5.1); Sodium 138 MMOL/L (136-145)
[2017-11-29] MEDS ORDERED: ONDANSETRON 4 MG/2 ML VIAL IV PRN (16:08)
[2017-11-29] MEDS ORDERED: ACETAMINOPHEN 325 MG TABLET PO PRN (16:08)
[2017-11-29] MEDS ORDERED: GLUCAGON 1 MG VIAL IM PRN (16:28)
[2017-11-29] MEDS: SODIUM CHLORIDE 0.9% 1,000 ML IV SCH ×2 (16:30→20:44)
[2017-11-29] MEDS ORDERED: MORPHINE 4 MG/1 ML VIAL IV STA (18:05)
[2017-11-29] MEDS ORDERED: MORPHINE 4 MG/1 ML VIAL ONE (18:21)
[2017-11-29] MEDS: ENOXAPARIN 40 MG/0.4 ML SYRINGE SUBCUT SCH (21:41)
[2017-11-29] MEDS: VANCOMYCIN INJ 750 MG in SODIUM CHLORIDE 0.9% 250 ML IV SCH (21:43)
[2017-11-29] MEDS: MORPHINE 4 MG/1 ML VIAL IV PRN (23:35)
[2017-11-30] MEDS: INSULIN LISPRO 100 UNIT/ML SUBCUT SCH ×6 (00:01→20:46)
[2017-11-30] MEDS: MORPHINE 4 MG/1 ML VIAL IV PRN ×4 (04:11→19:44)
[2017-11-30 05:30] LABS: Apearance,Urine CLEAR (Clear); Bilirubin,Urine Negative (Negative); Blood, Urine Small mg/dL (Negative); Glucose,Urine (UA) Negative (Negative); Ketones,Urine Negative (Negative); Mucus,Urine Occasional /LPF (Occasional); Nitrite,Urine Negative (Negative); Protein,Urine 100 MG/DL; RBC,Urine 7 /HPF (0-4); Urine Color Yellow (Yellow); Urine Specific Gravity 1.014 (1.001-1.035); Urine Urobilinogen < 2.0 EU/DL (0.2-1.0); WBC,Urine 2 /HPF (0-6)
[2017-11-30 05:37] LABS: Barbiturates Screen,Urine Negative (Negative); Benzodiazepines Screen,Urine Negative (Negative); Cannabinoid Screen,Urine Positive (Negative); Opiate Screen,Urine Positive (Negative); Phencyclidine Screen,Urine Negative (Negative)
[2017-11-30] MEDS ORDERED: LIDOCAINE 1% 20 ML VIAL ONE (06:27)
[2017-11-30] MEDS ORDERED: BUPIVACAINE MPF 0.25% 30 ML VIAL ONE (06:27)
[2017-11-30 06:48] LABS: Basophils # 0.1 10*3/uL (0.0-0.2); Basophils % 0.3 % (0.0-0.8); Eosinophils # 0.4 10*3/uL (0.0-0.87); Eosinophils % 2.7 % (0.00-10.9); Hematocrit 20.8 VOL% (42.0-52.0); Hemoglobin 6.8 GM/DL (14.0-18.0); Immature Granulocytes % 0.6 %; Immature Granulocytes Absolute 0.09 #; Lymphocytes # 2.3 10*3/uL (1.4-4.0); Lymphocytes % 14.7 % (21.2-54.2); Mean Corpuscular HGB Conc 32.7 GM/DL (32-36); Mean Corpuscular Hemoglobin 31 PG (27-34); Mean Corpuscular Volume 95.4 FL (87-102); Monocytes # 1.5 10*3/uL (0.11-0.8); Neutrophils % 71.7 % (38.7-73.9); Platelet Count 274 T/CUMM (130-400); Red Blood Count 2.18 MC/CUMM (3.8-5.5); White Blood Count 15.3 T/CUMM (4-12)
[2017-11-30] MEDS: SODIUM CHLORIDE 0.9% 1,000 ML IV SCH ×3 (07:10→19:45)
[2017-11-30 07:18] LABS: Calcium 8.2 MG/DL (8.5-10.1); Osmolality,Calculated 282.5 MOS/KG (273-304); Potassium 4.1 MMOL/L (3.5-5.1); Thyroid Stimulating Hormone 2.36 uIU/ml (0.358-3.74)
[2017-11-30] MEDS: PANTOPRAZOLE 40 MG TABLET PO SCH (08:13)
[2017-11-30] MEDS ORDERED: PROPOFOL 200 MG/20 ML VIAL IV ONE (09:08)
[2017-11-30] MEDS ORDERED: MIDAZOLAM 2 MG/2 ML VIAL ONE (09:08)
[2017-11-30] MEDS ORDERED: fentaNYL 100 MCG/2 ML VIAL ONE (09:08)
[2017-11-30] MEDS: PIPERACILLIN/TAZOBACTAM 3,375 MG in SODIUM CHLORIDE 0.9% 100 ML IV SCH ×2 (10:06→18:43)
[2017-11-30] MEDS ORDERED: SODIUM CHLORIDE 0.9% 1,000 ML IV PRN (10:36)
[2017-11-30] MEDS ORDERED: LIDOCAINE 5% PATCH TRANSDERM PRN (10:50)
[2017-11-30] MEDS ORDERED: IBUPROFEN 400 MG TABLET PO PRN (10:50)
[2017-11-30] MEDS ORDERED: hydrALAZINE 20 MG/1 ML VIAL IV PRN (10:52)
[2017-11-30] MEDS: LORATADINE 10 MG TABLET PO SCH (11:41)
[2017-11-30] MEDS: FLUTICASONE 50 MCG NASAL SPRAY 16 GM BOTTLE BOTH NARES SCH (11:41)
[2017-11-30] MEDS: LISINOPRIL 2.5 MG TABLET PO SCH (11:41)
[2017-11-30] MEDS: GABAPENTIN 400 MG CAPSULE PO SCH ×2 (14:22→20:45)
[2017-11-30] MEDS: VANCOMYCIN INJ 750 MG in SODIUM CHLORIDE 0.9% 250 ML IV SCH (14:22)
[2017-11-30] MEDS: DULoxetine 30 MG CAPSULE PO SCH (20:46)
[2017-11-30] MEDS: ENOXAPARIN 40 MG/0.4 ML SYRINGE SUBCUT SCH (20:46)
[2017-11-30] MEDS ORDERED: INSULIN GLARGINE 100 UNIT/ML SUBCUT SCH (21:00)
[2017-12-01] MEDS: PIPERACILLIN/TAZOBACTAM 3,375 MG in SODIUM CHLORIDE 0.9% 100 ML IV SCH ×3 (02:52→17:27)
[2017-12-01 06:08] LABS: Basophils % 0.2 % (0.0-0.8); Eosinophils # 0.1 10*3/uL (0.0-0.87); Eosinophils % 0.6 % (0.00-10.9); Hematocrit 27.8 VOL% (42.0-52.0); Hemoglobin 9.5 GM/DL (14.0-18.0); Immature Granulocytes % 0.4 %; Immature Granulocytes Absolute 0.07 #; Lymphocytes # 1.3 10*3/uL (1.4-4.0); Lymphocytes % 7.6 % (21.2-54.2); Mean Corpuscular HGB Conc 34.2 GM/DL (32-36); Mean Corpuscular Hemoglobin 31 PG (27-34); Mean Corpuscular Volume 89.4 FL (87-102); Mean Platelet Volume 9.6 FL (9.6-12.0); Monocytes # 1.6 10*3/uL (0.11-0.8); Monocytes % 9.3 % (1.7-12.7); Neutrophils # 13.9 10*3/uL (1.4-7.4); Neutrophils % 81.9 % (38.7-73.9); Platelet Count 283 T/CUMM (130-400); Red Blood Count 3.11 MC/CUMM (3.8-5.5)
[2017-12-01 06:35] LABS: Calcium 8.1 MG/DL (8.5-10.1); Potassium 4.3 MMOL/L (3.5-5.1)
[2017-12-01] MEDS: DEXTROSE 50% 25 GM/50 ML VIAL IV PRN ×2 (06:52→20:35)
[2017-12-01] MEDS: PANTOPRAZOLE 40 MG TABLET PO SCH (08:39)
[2017-12-01] MEDS: DULoxetine 30 MG CAPSULE PO SCH ×2 (08:39→20:33)
[2017-12-01] MEDS: LISINOPRIL 2.5 MG TABLET PO SCH (08:39)
[2017-12-01] MEDS: LORATADINE 10 MG TABLET PO SCH (08:40)
[2017-12-01] MEDS: MORPHINE 4 MG/1 ML VIAL IV PRN ×3 (08:40→17:26)
[2017-12-01] MEDS: GABAPENTIN 400 MG CAPSULE PO SCH ×3 (08:40→20:33)
[2017-12-01] MEDS: FLUTICASONE 50 MCG NASAL SPRAY 16 GM BOTTLE BOTH NARES SCH (08:46)
[2017-12-01] MEDS: VANCOMYCIN INJ 750 MG in SODIUM CHLORIDE 0.9% 250 ML IV SCH (08:46)
[2017-12-01] MEDS: INSULIN LISPRO 100 UNIT/ML SUBCUT SCH ×4 (08:46→20:14)
[2017-12-01] MEDS ORDERED: INSULIN GLARGINE 100 UNIT/ML SUBCUT SCH (09:28)
[2017-12-01] MEDS: SODIUM CHLORIDE 0.9% 1,000 ML IV SCH ×3 (19:48→20:59)
[2017-12-01] MEDS: ENOXAPARIN 40 MG/0.4 ML SYRINGE SUBCUT SCH (20:33)
[2017-12-02] MEDS: PIPERACILLIN/TAZOBACTAM 3,375 MG in SODIUM CHLORIDE 0.9% 100 ML IV SCH ×3 (01:01→18:30)
[2017-12-02 04:27] LABS: Basophils % 0.2 % (0.0-0.8); Eosinophils # 0.4 10*3/uL (0.0-0.87); Eosinophils % 2.3 % (0.00-10.9); Hematocrit 27.2 VOL% (42.0-52.0); Immature Granulocytes % 0.4 %; Immature Granulocytes Absolute 0.06 #; Lymphocytes # 2.2 10*3/uL (1.4-4.0); Lymphocytes % 14.5 % (21.2-54.2); Mean Corpuscular HGB Conc 33.1 GM/DL (32-36); Mean Corpuscular Hemoglobin 31 PG (27-34); Mean Corpuscular Volume 93.2 FL (87-102); Mean Platelet Volume 9.9 FL (9.6-12.0); Monocytes # 1.3 10*3/uL (0.11-0.8); Monocytes % 8.2 % (1.7-12.7); Neutrophils # 11.5 10*3/uL (1.4-7.4); Neutrophils % 74.4 % (38.7-73.9); Platelet Count 303 T/CUMM (130-400); Red Blood Count 2.92 MC/CUMM (3.8-5.5); Red Cell Distribution Width 16.1 % (9.3-17.3); White Blood Count 15.5 T/CUMM (4-12)
[2017-12-02 04:49] LABS: Calcium 8.3 MG/DL (8.5-10.1); Potassium 4.4 MMOL/L (3.5-5.1)
[2017-12-02] MEDS: VANCOMYCIN INJ 750 MG in SODIUM CHLORIDE 0.9% 250 ML IV SCH ×2 (05:46→23:02)
[2017-12-02] MEDS: GABAPENTIN 400 MG CAPSULE PO SCH ×3 (08:54→20:38)
[2017-12-02] MEDS: FLUTICASONE 50 MCG NASAL SPRAY 16 GM BOTTLE BOTH NARES SCH (08:55)
[2017-12-02] MEDS: INSULIN LISPRO 100 UNIT/ML SUBCUT SCH ×4 (08:55→20:45)
[2017-12-02] MEDS: LORATADINE 10 MG TABLET PO SCH (08:55)
[2017-12-02] MEDS: DULoxetine 30 MG CAPSULE PO SCH ×2 (08:55→20:39)
[2017-12-02] MEDS: LISINOPRIL 2.5 MG TABLET PO SCH (08:55)
[2017-12-02] MEDS: PANTOPRAZOLE 40 MG TABLET PO SCH (08:55)
[2017-12-02] MEDS: LISINOPRIL 10 MG TABLET PO SCH ×2 (11:29→20:38)
[2017-12-02] MEDS: MORPHINE 4 MG/1 ML VIAL IV PRN ×2 (11:29→19:18)
[2017-12-02] MEDS: SODIUM CHLORIDE 0.9% 1,000 ML IV SCH (17:25)
[2017-12-02] MEDS: CARVEDILOL 3.125 MG TABLET PO SCH (20:38)
[2017-12-02] MEDS: ENOXAPARIN 40 MG/0.4 ML SYRINGE SUBCUT SCH (20:40)
[2017-12-02] MEDS: INSULIN GLARGINE 100 UNIT/ML SUBCUT SCH (20:46)
[2017-12-03] MEDS: PIPERACILLIN/TAZOBACTAM 3,375 MG in SODIUM CHLORIDE 0.9% 100 ML IV SCH (02:53)
[2017-12-03] MEDS: SODIUM CHLORIDE 0.9% 1,000 ML IV SCH ×4 (02:57→16:31)
[2017-12-03] MEDS: MORPHINE 4 MG/1 ML VIAL IV PRN ×4 (03:21→21:48)
[2017-12-03] MEDS ORDERED: LEVOFLOXACIN INJ 750 MG in PREMIX 1 EACH IV SCH (08:00)
[2017-12-03] MEDS ORDERED: metroNIDAZOLE INJ 500 MG in PREMIX 1 EACH IV SCH (08:00)
[2017-12-03] MEDS: INSULIN LISPRO 100 UNIT/ML SUBCUT SCH ×4 (08:18→21:53)
[2017-12-03] MEDS: CARVEDILOL 3.125 MG TABLET PO SCH ×2 (08:20→17:25)
[2017-12-03] MEDS: GABAPENTIN 400 MG CAPSULE PO SCH ×3 (08:21→20:55)
[2017-12-03] MEDS: LORATADINE 10 MG TABLET PO SCH (08:21)
[2017-12-03] MEDS: PANTOPRAZOLE 40 MG TABLET PO SCH (08:21)
[2017-12-03] MEDS: LISINOPRIL 10 MG TABLET PO SCH ×2 (08:21→20:56)
[2017-12-03] MEDS: DULoxetine 30 MG CAPSULE PO SCH ×2 (08:21→20:55)
[2017-12-03 08:27] LABS: Basophils % 0.3 % (0.0-0.8); Eosinophils # 0.4 10*3/uL (0.0-0.87); Eosinophils % 4.2 % (0.00-10.9); Hematocrit 28.6 VOL% (42.0-52.0); Hemoglobin 9.2 GM/DL (14.0-18.0); Immature Granulocytes % 0.6 %; Immature Granulocytes Absolute 0.06 #; Lymphocytes # 1.8 10*3/uL (1.4-4.0); Lymphocytes % 18.7 % (21.2-54.2); Mean Corpuscular HGB Conc 32.2 GM/DL (32-36); Mean Corpuscular Hemoglobin 30 PG (27-34); Mean Corpuscular Volume 93.5 FL (87-102); Mean Platelet Volume 9.3 FL (9.6-12.0); Monocytes % 10.1 % (1.7-12.7); Neutrophils # 6.5 10*3/uL (1.4-7.4); Neutrophils % 66.1 % (38.7-73.9); Platelet Count 325 T/CUMM (130-400); Red Blood Count 3.06 MC/CUMM (3.8-5.5); Red Cell Distribution Width 16.3 % (9.3-17.3); White Blood Count 9.8 T/CUMM (4-12)
[2017-12-03 09:09] LABS: Calcium 8.3 MG/DL (8.5-10.1); Osmolality,Calculated 285.3 MOS/KG (273-304); Potassium 4.6 MMOL/L (3.5-5.1)
[2017-12-03] MEDS: FLUTICASONE 50 MCG NASAL SPRAY 16 GM BOTTLE BOTH NARES SCH (09:18)
[2017-12-03] MEDS: AMPICILLIN/SULBACTAM 1,500 MG in SODIUM CHLORIDE 0.9% 100 ML IV SCH ×2 (12:21→17:26)
[2017-12-03] MEDS: ENOXAPARIN 40 MG/0.4 ML SYRINGE SUBCUT SCH (20:56)
[2017-12-03] MEDS: INSULIN GLARGINE 100 UNIT/ML SUBCUT SCH (21:53)
[2017-12-04] MEDS: AMPICILLIN/SULBACTAM 1,500 MG in SODIUM CHLORIDE 0.9% 100 ML IV SCH ×4 (00:07→18:05)
[2017-12-04] MEDS: MORPHINE 4 MG/1 ML VIAL IV PRN ×4 (05:13→20:52)
[2017-12-04 05:38] LABS: Basophils % 0.4 % (0.0-0.8); Eosinophils # 0.4 10*3/uL (0.0-0.87); Eosinophils % 4.2 % (0.00-10.9); Hematocrit 30.4 VOL% (42.0-52.0); Hemoglobin 9.7 GM/DL (14.0-18.0); Immature Granulocytes % 0.3 %; Immature Granulocytes Absolute 0.03 #; Lymphocytes # 2.2 10*3/uL (1.4-4.0); Lymphocytes % 24.3 % (21.2-54.2); Mean Corpuscular HGB Conc 31.9 GM/DL (32-36); Mean Corpuscular Hemoglobin 30 PG (27-34); Mean Corpuscular Volume 94.1 FL (87-102); Mean Platelet Volume 9.6 FL (9.6-12.0); Monocytes # 0.9 10*3/uL (0.11-0.8); Monocytes % 9.5 % (1.7-12.7); Neutrophils # 5.5 10*3/uL (1.4-7.4); Neutrophils % 61.3 % (38.7-73.9); Platelet Count 370 T/CUMM (130-400); Red Blood Count 3.23 MC/CUMM (3.8-5.5); Red Cell Distribution Width 16.3 % (9.3-17.3)
[2017-12-04 06:02] LABS: Calcium 8.2 MG/DL (8.5-10.1); Osmolality,Calculated 287.4 MOS/KG (273-304); Potassium 4.8 MMOL/L (3.5-5.1)
[2017-12-04 06:12] LABS: Burr Cells Few; Eosinophils 5 % (0-10); Lymphocytes 30 % (20-55); Platelet Estimate Normal; Segmented Neutrophils 60 % (50-85); Total Cells Counted 100
[2017-12-04] MEDS: SODIUM CHLORIDE 0.9% 1,000 ML IV SCH ×2 (09:05→22:00)
[2017-12-04] MEDS: DULoxetine 30 MG CAPSULE PO SCH ×2 (09:06→20:51)
[2017-12-04] MEDS: LISINOPRIL 10 MG TABLET PO SCH ×2 (09:06→20:51)
[2017-12-04] MEDS: PANTOPRAZOLE 40 MG TABLET PO SCH (09:06)
[2017-12-04] MEDS: FLUTICASONE 50 MCG NASAL SPRAY 16 GM BOTTLE BOTH NARES SCH (09:06)
[2017-12-04] MEDS: CARVEDILOL 3.125 MG TABLET PO SCH ×2 (09:06→18:05)
[2017-12-04] MEDS: INSULIN LISPRO 100 UNIT/ML SUBCUT SCH ×4 (09:06→20:49)
[2017-12-04] MEDS: GABAPENTIN 400 MG CAPSULE PO SCH ×3 (09:06→20:51)
[2017-12-04] MEDS: LORATADINE 10 MG TABLET PO SCH (09:06)
[2017-12-04] MEDS ORDERED: BUPIVACAINE MPF 0.25% 30 ML VIAL ONE (09:54)
[2017-12-04] MEDS ORDERED: LIDOCAINE 1% 20 ML VIAL ONE (09:54)
[2017-12-04] MEDS ORDERED: PROPOFOL 200 MG/20 ML VIAL IV ONE (10:40)
[2017-12-04] MEDS ORDERED: fentaNYL 100 MCG/2 ML VIAL ONE (10:40)
[2017-12-04] MEDS ORDERED: MIDAZOLAM 2 MG/2 ML VIAL ONE (10:40)
[2017-12-04] MEDS: ENOXAPARIN 40 MG/0.4 ML SYRINGE SUBCUT SCH (20:50)
[2017-12-04] MEDS: INSULIN GLARGINE 100 UNIT/ML SUBCUT SCH (20:51)
[2017-12-05] MEDS: AMPICILLIN/SULBACTAM 1,500 MG in SODIUM CHLORIDE 0.9% 100 ML IV SCH ×3 (00:04→13:56)
[2017-12-05] MEDS: SODIUM CHLORIDE 0.9% 1,000 ML IV SCH ×2 (03:30→13:55)
[2017-12-05] MEDS: MORPHINE 4 MG/1 ML VIAL IV PRN ×2 (06:24→11:27)
[2017-12-05 06:53] LABS: Basophils % 0.2 % (0.0-0.8); Eosinophils # 0.4 10*3/uL (0.0-0.87); Eosinophils % 4.5 % (0.00-10.9); Hematocrit 26.2 VOL% (42.0-52.0); Hemoglobin 8.4 GM/DL (14.0-18.0); Immature Granulocytes % 0.6 %; Immature Granulocytes Absolute 0.05 #; Lymphocytes % 23.5 % (21.2-54.2); Mean Corpuscular HGB Conc 32.1 GM/DL (32-36); Mean Corpuscular Hemoglobin 30 PG (27-34); Mean Corpuscular Volume 94.2 FL (87-102); Mean Platelet Volume 9.4 FL (9.6-12.0); Monocytes % 11.1 % (1.7-12.7); Neutrophils # 5.2 10*3/uL (1.4-7.4); Neutrophils % 60.1 % (38.7-73.9); Platelet Count 345 T/CUMM (130-400); Red Blood Count 2.78 MC/CUMM (3.8-5.5); Red Cell Distribution Width 16.2 % (9.3-17.3); White Blood Count 8.6 T/CUMM (4-12)
[2017-12-05 07:09] LABS: Calcium 8.1 MG/DL (8.5-10.1); Osmolality,Calculated 288.1 MOS/KG (273-304); Potassium 4.8 MMOL/L (3.5-5.1)
[2017-12-05 07:16] LABS: Band Neutrophils 1 % (0-10); Eosinophils 5 % (0-10); Hypochromasia 1+; Lymphocytes 19 % (20-55); Nucleated Red Blood Cells 1 (0-5); Ovalocytes Slight; Platelet Estimate Adequate; Segmented Neutrophils 69 % (50-85); Total Cells Counted 100
[2017-12-05] MEDS: INSULIN LISPRO 100 UNIT/ML SUBCUT SCH ×2 (07:45→12:54)
[2017-12-05] MEDS: LISINOPRIL 10 MG TABLET PO SCH (11:34)
[2017-12-05] MEDS: PANTOPRAZOLE 40 MG TABLET PO SCH (11:34)
[2017-12-05] MEDS: GABAPENTIN 400 MG CAPSULE PO SCH ×2 (11:34→16:14)
[2017-12-05] MEDS: LORATADINE 10 MG TABLET PO SCH (11:34)
[2017-12-05] MEDS: DULoxetine 30 MG CAPSULE PO SCH (11:34)
[2017-12-05] MEDS: FLUTICASONE 50 MCG NASAL SPRAY 16 GM BOTTLE BOTH NARES SCH (11:35)
[2017-12-05] MEDS: CARVEDILOL 3.125 MG TABLET PO SCH (11:35)
[2017-12-05 13:09] VITALS: BP 163/98
== END 2017-12-05 15:01 | disposition home or self-care (01) | DRG 710 ==
LOC: N.ED 11:50 → N.EDINP 15:27 → N.3E 19:50

== ENCOUNTER 2017-12-08 10:08 | Inpatient (IN) ==
[2017-12-08] MEDS ORDERED: PROPOFOL 1,000 MG/100 ML BOTTLE IV ONE (10:34)
[2017-12-08 10:38] LABS: Basophils # 0.1 10*3/uL (0.0-0.2); Basophils % 0.4 % (0.0-0.8); Eosinophils # 0.1 10*3/uL (0.0-0.87); Eosinophils % 0.6 % (0.00-10.9); Hematocrit 30.4 VOL% (42.0-52.0); Hemoglobin 9.7 GM/DL (14.0-18.0); Immature Granulocytes % 0.9 %; Immature Granulocytes Absolute 0.14 #; Lymphocytes # 1.6 10*3/uL (1.4-4.0); Lymphocytes % 10.3 % (21.2-54.2); Mean Corpuscular HGB Conc 31.9 GM/DL (32-36); Mean Corpuscular Hemoglobin 31 PG (27-34); Mean Corpuscular Volume 95.9 FL (87-102); Mean Platelet Volume 8.8 FL (9.6-12.0); Monocytes # 0.7 10*3/uL (0.11-0.8); Monocytes % 4.7 % (1.7-12.7); Neutrophils % 83.1 % (38.7-73.9); Platelet Count 418 T/CUMM (130-400); Red Blood Count 3.17 MC/CUMM (3.8-5.5); Red Cell Distribution Width 16.2 % (9.3-17.3); White Blood Count 15.6 T/CUMM (4-12)
[2017-12-08] MEDS: PROPOFOL 1,000 MG/100 ML BOTTLE IV SCH (10:40)
[2017-12-08] MEDS ORDERED: ETOMIDATE 20 MG/10 ML VIAL IV ONE (10:43)
[2017-12-08] MEDS ORDERED: ROCURONIUM 100 MG/10 ML VIAL IV ONE (10:44)
[2017-12-08 10:45] LABS: PT Patient Result 10.2 SECS; Partial Thromboplastin Time 32.4 SECS (0-40)
[2017-12-08] MEDS ORDERED: cefTRIAXone 1,000 MG in SODIUM CHLORIDE 0.9% 100 ML IV STA (11:14)
[2017-12-08 11:17] LABS: Alanine Aminotransferase 17 U/L (16-61); Alkaline Phosphatase 108 U/L (45-117); Aspartate Amino Transferase 24 U/L (0-37); Bilirubin,Total < 0.39 MG/DL (0.2-1.0); Blood Urea Nitrogen 11 MG/DL (7-18); Calcium 7.9 MG/DL (8.5-10.1); Glucose 154 MG/DL (74-106); Osmolality,Calculated 282.3 MOS/KG (273-304); Potassium 4.9 MMOL/L (3.5-5.1); Sodium 141 MMOL/L (136-145); Total Protein 5.8 G/DL (6.4-8.3)
[2017-12-08 11:18] LABS: Troponin I Only 0.016 NG/ML (0.00-0.045)
[2017-12-08 11:21] LABS: ABG Base Excess -6.8 MMOL/L (-2.5-2.5); ABG HCO3 18.9 MMOL/L (20-26); ABG PCO2 50.8 MM HG (35-48); ABG PH 7.225 (7.35-7.45); ABG TCO2 19.7 MMOL/L (23-27); Pt O2 Delivery Device Ventilator
[2017-12-08] MEDS ORDERED: hydrALAZINE 20 MG/1 ML VIAL ONE (11:27)
[2017-12-08] MEDS ORDERED: hydrALAZINE 20 MG/1 ML VIAL IV STA (11:27)
[2017-12-08 11:54] LABS: Free T4 (Free Thyroxine) 0.95 NG/DL (0.76-1.46); Thyroid Stimulating Hormone 1.41 uIU/ml (0.358-3.74)
[2017-12-08] MEDS ORDERED: ALBUTEROL 2.5 MG/3 ML NEB RESP TX PRN (12:19)
[2017-12-08] MEDS ORDERED: ONDANSETRON 4 MG/2 ML VIAL IV PRN (12:19)
[2017-12-08] MEDS ORDERED: ACETAMINOPHEN 325 MG TABLET PO PRN (12:19)
[2017-12-08] MEDS ORDERED: LIDOCAINE 5% PATCH TRANSDERM PRN (12:24)
[2017-12-08] MEDS ORDERED: ENOXAPARIN 40 MG/0.4 ML SYRINGE SUBCUT SCH (12:30)
[2017-12-08] MEDS: DEXTROSE 5% NACL 0.9% 1,000 ML IV SCH (14:15)
[2017-12-08 14:18] LABS: ABG Base Excess -5.2 MMOL/L (-2.5-2.5); ABG HCO3 20.2 MMOL/L (20-26); ABG Oxygen Saturation 98.8 % (95-100); ABG PCO2 38.2 MM HG (35-48); ABG PH 7.333 (7.35-7.45); ABG TCO2 18.5 MMOL/L (23-27)
[2017-12-08] MEDS ORDERED: LABETALOL 100 MG/20 ML VIAL IV PRN (14:34)
[2017-12-08] MEDS: hydrALAZINE 20 MG/1 ML VIAL IV PRN (14:49)
[2017-12-08] MEDS: CLINDAMYCIN INJ 600 MG in PREMIX 1 EACH IV SCH ×2 (14:49→20:50)
[2017-12-08] MEDS: cefTRIAXone 1,000 MG in SYRINGE 1 EACH IV SCH ×3 (14:53→15:07)
[2017-12-08] MEDS ORDERED: LORazepam 2 MG/1 ML VIAL IV ONE (17:13)
[2017-12-08] MEDS: GABAPENTIN 400 MG CAPSULE PO SCH ×2 (17:23→20:55)
[2017-12-08] MEDS: CARVEDILOL 3.125 MG TABLET PO SCH (17:24)
[2017-12-08] MEDS: AZITHROMYCIN INJ 500 MG in SODIUM CHLORIDE 0.9% 250 ML IV SCH (19:00)
[2017-12-08] MEDS: MORPHINE 4 MG/1 ML VIAL IV PRN ×2 (20:51→23:55)
[2017-12-08] MEDS: FAMOTIDINE 20 MG TABLET PO SCH (20:55)
[2017-12-08] MEDS: LISINOPRIL 10 MG TABLET PO SCH (20:55)
[2017-12-08] MEDS: DULoxetine 30 MG CAPSULE PO SCH (20:55)
[2017-12-09] MEDS: PROPOFOL 1,000 MG/100 ML BOTTLE IV SCH ×2 (00:07→11:31)
[2017-12-09] MEDS: DEXTROSE 5% NACL 0.9% 1,000 ML IV SCH ×3 (00:07→18:43)
[2017-12-09 02:59] LABS: Allen Test Positive; Pt O2 Delivery Device Ventilator
[2017-12-09 03:00] LABS: ABG Base Excess -5.6 MMOL/L (-2.5-2.5); ABG HCO3 18.9 MMOL/L (20-26); ABG Oxygen Saturation 98.9 % (95-100); ABG PCO2 33.1 MM HG (35-48); ABG PH 7.375 (7.35-7.45); ABG PO2 248.2 MM HG (80-95); ABG TCO2 19.9 MMOL/L (23-27)
[2017-12-09] MEDS: MORPHINE 4 MG/1 ML VIAL IV PRN ×2 (03:06→20:14)
[2017-12-09 04:21] LABS: Basophils # 0.1 10*3/uL (0.0-0.2); Basophils % 0.2 % (0.0-0.8); Hematocrit 26.7 VOL% (42.0-52.0); Hemoglobin 8.5 GM/DL (14.0-18.0); Immature Granulocytes % 1.7 %; Immature Granulocytes Absolute 0.43 #; Lymphocytes # 1.3 10*3/uL (1.4-4.0); Lymphocytes % 4.9 % (21.2-54.2); Mean Corpuscular HGB Conc 31.8 GM/DL (32-36); Mean Corpuscular Hemoglobin 30 PG (27-34); Mean Platelet Volume 9.5 FL (9.6-12.0); Monocytes # 1.7 10*3/uL (0.11-0.8); Monocytes % 6.5 % (1.7-12.7); Neutrophils # 22.1 10*3/uL (1.4-7.4); Neutrophils % 86.7 % (38.7-73.9); Platelet Count 348 T/CUMM (130-400); Red Blood Count 2.84 MC/CUMM (3.8-5.5); Red Cell Distribution Width 15.9 % (9.3-17.3); White Blood Count 25.5 T/CUMM (4-12)
[2017-12-09 04:45] LABS: Albumin 1.5 G/DL (3.4-5.0); Bilirubin,Total 0.4 MG/DL (0.2-1.0); Osmolality,Calculated 287.1 MOS/KG (273-304); Total Protein 5.5 G/DL (6.4-8.3)
[2017-12-09 05:01] LABS: Band Neutrophils 6 % (0-10); Burr Cells Slight; Hypochromasia 1+; Lymphocytes 6 % (20-55); Ovalocytes Slight; Platelet Estimate Adequate; Segmented Neutrophils 83 % (50-85); Total Cells Counted 100
[2017-12-09] MEDS: CLINDAMYCIN INJ 600 MG in PREMIX 1 EACH IV SCH ×3 (05:06→20:11)
[2017-12-09 10:31] LABS: Apearance,Urine CLOUDY (Clear); Bacteria,Urine Moderate /HPF (Few); Bilirubin,Urine Negative (Negative); Blood, Urine Small mg/dL (Negative); Glucose,Urine (UA) Negative (Negative); Ketones,Urine Negative (Negative); Mucus,Urine Occasional /LPF (Occasional); Nitrite,Urine Negative (Negative); Protein,Urine 100 MG/DL; RBC,Urine 12 /HPF (0-4); Squamous Epithelial Cell,Urine Occasional /HPF (0-10); Urine Color Yellow (Yellow); Urine Specific Gravity 1.017 (1.001-1.035); Urine Urobilinogen < 2.0 EU/DL (0.2-1.0); WBC,Urine 2 /HPF (0-6)
[2017-12-09 10:40] LABS: Barbiturates Screen,Urine Negative (Negative); Benzodiazepines Screen,Urine Positive (Negative); Cannabinoid Screen,Urine Positive (Negative); Opiate Screen,Urine Positive (Negative); Phencyclidine Screen,Urine Negative (Negative)
[2017-12-09] MEDS: FAMOTIDINE 20 MG TABLET PO SCH (11:48)
[2017-12-09 11:49] LABS: INR 1.1; PT Patient Result 11.3 SECS
[2017-12-09] MEDS: CARVEDILOL 3.125 MG TABLET PO SCH ×2 (11:53→16:06)
[2017-12-09] MEDS: GABAPENTIN 400 MG CAPSULE PO SCH ×3 (11:54→20:16)
[2017-12-09] MEDS: DULoxetine 30 MG CAPSULE PO SCH ×2 (11:55→20:16)
[2017-12-09] MEDS: PANTOPRAZOLE 40 MG VIAL IV SCH ×2 (11:57→20:15)
[2017-12-09] MEDS: LISINOPRIL 10 MG TABLET PO SCH ×2 (11:57→20:16)
[2017-12-09] MEDS: METOCLOPRAMIDE 10 MG/2 ML VIAL IV SCH ×2 (11:59→18:41)
[2017-12-09] MEDS: cefTRIAXone 1,000 MG in SYRINGE 1 EACH IV SCH (12:02)
[2017-12-09] MEDS ORDERED: fentaNYL INJ 1,250 MCG in SODIUM CHLORIDE 0.9% 225 ML IV PRN (12:05)
[2017-12-09] MEDS: AZITHROMYCIN INJ 500 MG in SODIUM CHLORIDE 0.9% 250 ML IV SCH (20:17)
[2017-12-10] MEDS: PROPOFOL 1,000 MG/100 ML BOTTLE IV SCH ×3 (01:27→18:23)
[2017-12-10] MEDS: MORPHINE 4 MG/1 ML VIAL IV PRN (02:15)
[2017-12-10 03:33] LABS: ABG Base Excess -7.7 MMOL/L (-2.5-2.5); ABG HCO3 18.1 MMOL/L (20-26); ABG Oxygen Saturation 97.6 % (95-100); ABG PCO2 40.1 MM HG (35-48); ABG PH 7.275 (7.35-7.45); ABG TCO2 17.6 MMOL/L (23-27); Pt O2 Delivery Device Ventilator
[2017-12-10 03:54] LABS: Basophils # 0.1 10*3/uL (0.0-0.2); Basophils % 0.3 % (0.0-0.8); Eosinophils # 0.3 10*3/uL (0.0-0.87); Hematocrit 24.9 VOL% (42.0-52.0); Immature Granulocytes % 1.4 %; Immature Granulocytes Absolute 0.38 #; Lymphocytes # 1.1 10*3/uL (1.4-4.0); Lymphocytes % 4.1 % (21.2-54.2); Mean Corpuscular HGB Conc 32.1 GM/DL (32-36); Mean Corpuscular Hemoglobin 30 PG (27-34); Mean Corpuscular Volume 94.7 FL (87-102); Mean Platelet Volume 9.5 FL (9.6-12.0); Monocytes # 1.7 10*3/uL (0.11-0.8); Monocytes % 6.4 % (1.7-12.7); Neutrophils % 86.8 % (38.7-73.9); Platelet Count 333 T/CUMM (130-400); Red Blood Count 2.63 MC/CUMM (3.8-5.5); Red Cell Distribution Width 16.5 % (9.3-17.3); White Blood Count 26.5 T/CUMM (4-12)
[2017-12-10 04:22] LABS: Band Neutrophils 7 % (0-10); Eosinophils 2 % (0-10); Lymphocytes 9 % (20-55); Segmented Neutrophils 73 % (50-85); Total Cells Counted 100
[2017-12-10 04:23] LABS: Burr Cells 1+; Platelet Estimate Normal
[2017-12-10 04:24] LABS: Hypochromasia Slight; Ovalocytes 1+
[2017-12-10 04:30] LABS: Calcium 8.2 MG/DL (8.5-10.1); Osmolality,Calculated 292.8 MOS/KG (273-304); Potassium 4.5 MMOL/L (3.5-5.1)
[2017-12-10] MEDS: METOCLOPRAMIDE 10 MG/2 ML VIAL IV SCH ×3 (04:43→18:05)
[2017-12-10] MEDS: DEXTROSE 5% NACL 0.9% 1,000 ML IV SCH ×2 (04:43→15:00)
[2017-12-10] MEDS: CLINDAMYCIN INJ 600 MG in PREMIX 1 EACH IV SCH ×3 (04:43→21:59)
[2017-12-10] MEDS: CARVEDILOL 3.125 MG TABLET PO SCH ×2 (07:53→16:06)
[2017-12-10] MEDS: LISINOPRIL 10 MG TABLET PO SCH (07:54)
[2017-12-10] MEDS: DULoxetine 30 MG CAPSULE PO SCH ×2 (08:01→22:00)
[2017-12-10] MEDS: GABAPENTIN 400 MG CAPSULE PO SCH ×3 (08:01→22:00)
[2017-12-10] MEDS: PANTOPRAZOLE 40 MG VIAL IV SCH ×2 (08:01→22:00)
[2017-12-10] MEDS: SODIUM HYPOCHLORITE 0.25% IRRIG 473 ML BOTTLE TOP SCH (08:51)
[2017-12-10] MEDS ORDERED: ZINC OXIDE PASTE 113 GM TUBE TOP PRN (10:56)
[2017-12-10] MEDS: cefTRIAXone 1,000 MG in SYRINGE 1 EACH IV SCH (12:25)
[2017-12-10] MEDS: BACITRACIN OINT 0.9 GM PACK TOP SCH (22:00)
[2017-12-10] MEDS: AZITHROMYCIN INJ 500 MG in SODIUM CHLORIDE 0.9% 250 ML IV SCH (22:27)
[2017-12-11] MEDS: DEXTROSE 5% NACL 0.9% 1,000 ML IV SCH (01:27)
[2017-12-11] MEDS: PROPOFOL 1,000 MG/100 ML BOTTLE IV SCH ×4 (01:48→18:51)
[2017-12-11 03:04] LABS: Basophils # 0.1 10*3/uL (0.0-0.2); Basophils % 0.2 % (0.0-0.8); Eosinophils # 0.3 10*3/uL (0.0-0.87); Eosinophils % 1.3 % (0.00-10.9); Hematocrit 24.1 VOL% (42.0-52.0); Hemoglobin 7.9 GM/DL (14.0-18.0); Immature Granulocytes % 1.8 %; Immature Granulocytes Absolute 0.42 #; Lymphocytes # 1.3 10*3/uL (1.4-4.0); Lymphocytes % 5.7 % (21.2-54.2); Mean Corpuscular HGB Conc 32.8 GM/DL (32-36); Mean Corpuscular Hemoglobin 30 PG (27-34); Mean Corpuscular Volume 92.7 FL (87-102); Mean Platelet Volume 10.1 FL (9.6-12.0); Monocytes # 1.5 10*3/uL (0.11-0.8); Monocytes % 6.6 % (1.7-12.7); Neutrophils # 19.3 10*3/uL (1.4-7.4); Neutrophils % 84.4 % (38.7-73.9); Platelet Count 329 T/CUMM (130-400); Red Cell Distribution Width 16.7 % (9.3-17.3); White Blood Count 22.9 T/CUMM (4-12)
[2017-12-11] MEDS: METOCLOPRAMIDE 10 MG/2 ML VIAL IV SCH (03:09)
[2017-12-11 03:15] LABS: Calcium 8.3 MG/DL (8.5-10.1); Osmolality,Calculated 292.8 MOS/KG (273-304); Potassium 4.4 MMOL/L (3.5-5.1)
[2017-12-11 03:23] LABS: Prealbumin 9.6 MG/DL (20-40)
[2017-12-11 03:57] LABS: ABG Base Excess -7.2 MMOL/L (-2.5-2.5); ABG HCO3 18.3 MMOL/L (20-26); ABG Oxygen Saturation 98.3 % (95-100); ABG PCO2 36.5 MM HG (35-48); ABG PH 7.317 (7.35-7.45); ABG PO2 149.6 MM HG (80-95); ABG TCO2 19.4 MMOL/L (23-27); Allen Test Positive; Pt O2 Delivery Device Ventilator
[2017-12-11 04:08] LABS: Band Neutrophils 11 % (0-10); Eosinophils 3 % (0-10); Lymphocytes 4 % (20-55); Metamyelocytes 1 %; Platelet Estimate Normal; Segmented Neutrophils 75 % (50-85); Total Cells Counted 100
[2017-12-11 04:09] LABS: Acanthocytes 1+; Anisocytosis 1+; Hypochromasia Slight; Macrocytosis 1+
[2017-12-11] MEDS: CLINDAMYCIN INJ 600 MG in PREMIX 1 EACH IV SCH ×3 (04:35→21:28)
[2017-12-11] MEDS: BACITRACIN OINT 0.9 GM PACK TOP SCH ×3 (08:06→21:38)
[2017-12-11] MEDS: PANTOPRAZOLE 40 MG VIAL IV SCH ×2 (08:06→21:28)
[2017-12-11] MEDS: SODIUM HYPOCHLORITE 0.25% IRRIG 473 ML BOTTLE TOP SCH (08:06)
[2017-12-11] MEDS ORDERED: ROCURONIUM 100 MG/10 ML VIAL IV ONE (10:00)
[2017-12-11] MEDS: SODIUM CHLORIDE 0.9% 1,000 ML IV SCH ×2 (10:44→21:04)
[2017-12-11] MEDS: DULoxetine 30 MG CAPSULE PO SCH ×2 (10:45→21:27)
[2017-12-11] MEDS ORDERED: MIDAZOLAM 2 MG/2 ML VIAL ONE (11:09)
[2017-12-11] MEDS: CARVEDILOL 3.125 MG TABLET PO SCH ×2 (11:54→17:00)
[2017-12-11] MEDS: GABAPENTIN 400 MG CAPSULE PO SCH ×3 (11:54→21:27)
[2017-12-11] MEDS: cefTRIAXone 1,000 MG in SYRINGE 1 EACH IV SCH (11:59)
[2017-12-11] MEDS ORDERED: cloNIDine 0.1 MG TABLET PER TUBE PRN (13:11)
[2017-12-11] MEDS: ENOXAPARIN 40 MG/0.4 ML SYRINGE SUBCUT SCH (13:44)
[2017-12-11] MEDS: amLODIPine 10 MG TABLET PO SCH (13:45)
[2017-12-11] MEDS: MORPHINE 4 MG/1 ML VIAL IV PRN (17:00)
[2017-12-11] MEDS: INSULIN GLARGINE 100 UNIT/ML SUBCUT SCH (21:27)
[2017-12-11] MEDS: AZITHROMYCIN INJ 500 MG in SODIUM CHLORIDE 0.9% 250 ML IV SCH (21:38)
[2017-12-12 04:07] LABS: ABG Base Excess -9.1 MMOL/L (-2.5-2.5); ABG HCO3 17.1 MMOL/L (20-26); ABG Oxygen Saturation 98.5 % (95-100); ABG PCO2 39.4 MM HG (35-48); ABG PH 7.255 (7.35-7.45); ABG TCO2 16.5 MMOL/L (23-27); Allen Test Positive; Pt O2 Delivery Device Ventilator
[2017-12-12 04:18] LABS: Basophils # 0.1 10*3/uL (0.0-0.2); Basophils % 0.3 % (0.0-0.8); Eosinophils # 0.2 10*3/uL (0.0-0.87); Eosinophils % 1.1 % (0.00-10.9); Hematocrit 25.2 VOL% (42.0-52.0); Hemoglobin 8.3 GM/DL (14.0-18.0); Immature Granulocytes % 1.4 %; Immature Granulocytes Absolute 0.26 #; Lymphocytes # 1.5 10*3/uL (1.4-4.0); Lymphocytes % 7.9 % (21.2-54.2); Mean Corpuscular HGB Conc 32.9 GM/DL (32-36); Mean Corpuscular Hemoglobin 30 PG (27-34); Mean Corpuscular Volume 92.3 FL (87-102); Mean Platelet Volume 10.3 FL (9.6-12.0); Monocytes # 1.3 10*3/uL (0.11-0.8); Neutrophils # 15.2 10*3/uL (1.4-7.4); Neutrophils % 82.3 % (38.7-73.9); Platelet Count 327 T/CUMM (130-400); Red Blood Count 2.73 MC/CUMM (3.8-5.5); Red Cell Distribution Width 16.7 % (9.3-17.3); White Blood Count 18.4 T/CUMM (4-12)
[2017-12-12] MEDS: CLINDAMYCIN INJ 600 MG in PREMIX 1 EACH IV SCH ×3 (04:45→20:42)
[2017-12-12 04:49] LABS: Calcium 8.6 MG/DL (8.5-10.1); Osmolality,Calculated 289.8 MOS/KG (273-304); Potassium 4.5 MMOL/L (3.5-5.1)
[2017-12-12] MEDS: SODIUM CHLORIDE 0.9% 1,000 ML IV SCH (07:00)
[2017-12-12] MEDS: SODIUM HYPOCHLORITE 0.25% IRRIG 473 ML BOTTLE TOP SCH (08:30)
[2017-12-12] MEDS: BACITRACIN OINT 0.9 GM PACK TOP SCH ×3 (08:40→20:37)
[2017-12-12] MEDS: PANTOPRAZOLE 40 MG VIAL IV SCH ×2 (09:15→20:42)
[2017-12-12] MEDS: DULoxetine 30 MG CAPSULE PO SCH ×2 (09:20→20:38)
[2017-12-12] MEDS: CARVEDILOL 3.125 MG TABLET PO SCH ×2 (09:20→17:00)
[2017-12-12] MEDS: GABAPENTIN 400 MG CAPSULE PO SCH ×3 (09:20→20:37)
[2017-12-12] MEDS: amLODIPine 10 MG TABLET PO SCH (09:20)
[2017-12-12] MEDS: SODIUM BICARB INJ 100 MEQ in SODIUM CHLORIDE 0.45% 900 ML IV SCH ×2 (10:30→20:36)
[2017-12-12] MEDS: ENOXAPARIN 40 MG/0.4 ML SYRINGE SUBCUT SCH (12:10)
[2017-12-12] MEDS: cefTRIAXone 1,000 MG in SYRINGE 1 EACH IV SCH (12:10)
[2017-12-12] MEDS: PROPOFOL 1,000 MG/100 ML BOTTLE IV SCH ×2 (14:00→22:10)
[2017-12-12] MEDS: INSULIN GLARGINE 100 UNIT/ML SUBCUT SCH (20:59)
[2017-12-13 03:39] LABS: Allen Test Positive; Pt O2 Delivery Device Ventilator
[2017-12-13 03:41] LABS: ABG Base Excess -5.9 MMOL/L (-2.5-2.5); ABG HCO3 19.5 MMOL/L (20-26); ABG Oxygen Saturation 98.5 % (95-100); ABG PCO2 41.1 MM HG (35-48); ABG PH 7.298 (7.35-7.45)
[2017-12-13 04:36] LABS: Basophils # 0.1 10*3/uL (0.0-0.2); Basophils % 0.3 % (0.0-0.8); Eosinophils # 0.4 10*3/uL (0.0-0.87); Eosinophils % 2.5 % (0.00-10.9); Hemoglobin 8.1 GM/DL (14.0-18.0); Immature Granulocytes % 1.1 %; Immature Granulocytes Absolute 0.17 #; Lymphocytes # 1.7 10*3/uL (1.4-4.0); Lymphocytes % 10.4 % (21.2-54.2); Mean Corpuscular HGB Conc 32.4 GM/DL (32-36); Mean Corpuscular Hemoglobin 30 PG (27-34); Mean Corpuscular Volume 92.6 FL (87-102); Mean Platelet Volume 10.2 FL (9.6-12.0); Monocytes # 1.6 10*3/uL (0.11-0.8); Monocytes % 10.2 % (1.7-12.7); Neutrophils % 75.5 % (38.7-73.9); Platelet Count 377 T/CUMM (130-400); Red Cell Distribution Width 16.5 % (9.3-17.3); White Blood Count 15.9 T/CUMM (4-12)
[2017-12-13] MEDS: CLINDAMYCIN INJ 600 MG in PREMIX 1 EACH IV SCH ×3 (04:46→20:43)
[2017-12-13 05:05] LABS: Calcium 8.6 MG/DL (8.5-10.1); Osmolality,Calculated 288.7 MOS/KG (273-304); Potassium 4.3 MMOL/L (3.5-5.1)
[2017-12-13] MEDS: PROPOFOL 1,000 MG/100 ML BOTTLE IV SCH ×3 (06:09→23:47)
[2017-12-13] MEDS: DEXTROSE 50% 25 GM/50 ML VIAL IV PRN ×3 (06:12→20:44)
[2017-12-13] MEDS: SODIUM BICARB INJ 100 MEQ in SODIUM CHLORIDE 0.45% 900 ML IV SCH ×2 (07:20→17:50)
[2017-12-13] MEDS ORDERED: FUROSEMIDE 40 MG/4 ML VIAL IV ONE (08:27)
[2017-12-13] MEDS: SODIUM HYPOCHLORITE 0.25% IRRIG 473 ML BOTTLE TOP SCH (08:50)
[2017-12-13] MEDS: amLODIPine 10 MG TABLET PO SCH (09:38)
[2017-12-13] MEDS: CARVEDILOL 3.125 MG TABLET PO SCH ×2 (09:38→16:20)
[2017-12-13] MEDS: BACITRACIN OINT 0.9 GM PACK TOP SCH ×3 (09:38→20:43)
[2017-12-13] MEDS: DULoxetine 30 MG CAPSULE PO SCH ×2 (09:38→20:43)
[2017-12-13] MEDS: methylPREDNISolone SOD SUC 40 MG/1 ML VIAL IV SCH ×3 (09:39→23:44)
[2017-12-13] MEDS: PANTOPRAZOLE 40 MG VIAL IV SCH ×2 (09:39→20:44)
[2017-12-13] MEDS: GABAPENTIN 400 MG CAPSULE PO SCH ×3 (09:39→20:44)
[2017-12-13] MEDS: ENOXAPARIN 40 MG/0.4 ML SYRINGE SUBCUT SCH (13:28)
[2017-12-13] MEDS: cefTRIAXone 1,000 MG in SYRINGE 1 EACH IV SCH (13:29)
[2017-12-13] MEDS: MORPHINE 4 MG/1 ML VIAL IV PRN (20:44)
[2017-12-13] MEDS: INSULIN GLARGINE 100 UNIT/ML SUBCUT SCH (20:45)
[2017-12-13] MEDS: hydrALAZINE 20 MG/1 ML VIAL IV PRN (21:59)
[2017-12-14] MEDS: MORPHINE 4 MG/1 ML VIAL IV PRN (03:48)
[2017-12-14 03:50] LABS: ABG Base Excess -1.6 MMOL/L (-2.5-2.5); ABG HCO3 23.1 MMOL/L (20-26); ABG Oxygen Saturation 98.9 % (95-100); ABG PCO2 40.5 MM HG (35-48); ABG PH 7.372 (7.35-7.45); ABG TCO2 21.6 MMOL/L (23-27)
[2017-12-14] MEDS: CLINDAMYCIN INJ 600 MG in PREMIX 1 EACH IV SCH ×3 (04:11→21:47)
[2017-12-14] MEDS: SODIUM BICARB INJ 100 MEQ in SODIUM CHLORIDE 0.45% 900 ML IV SCH ×2 (04:14→16:22)
[2017-12-14 05:08] LABS: Basophils % 0.1 % (0.0-0.8); Hematocrit 26.9 VOL% (42.0-52.0); Immature Granulocytes % 2.2 %; Lymphocytes # 1.1 10*3/uL (1.4-4.0); Lymphocytes % 7.9 % (21.2-54.2); Mean Corpuscular HGB Conc 33.5 GM/DL (32-36); Mean Corpuscular Hemoglobin 29 PG (27-34); Mean Corpuscular Volume 87.9 FL (87-102); Mean Platelet Volume 10.5 FL (9.6-12.0); Monocytes # 0.5 10*3/uL (0.11-0.8); Neutrophils # 11.5 10*3/uL (1.4-7.4); Neutrophils % 85.8 % (38.7-73.9); Platelet Count 443 T/CUMM (130-400); Red Blood Count 3.06 MC/CUMM (3.8-5.5); White Blood Count 13.4 T/CUMM (4-12)
[2017-12-14 05:19] LABS: Calcium 8.8 MG/DL (8.5-10.1); Osmolality,Calculated 287.1 MOS/KG (273-304); Potassium 4.3 MMOL/L (3.5-5.1)
[2017-12-14] MEDS: PROPOFOL 1,000 MG/100 ML BOTTLE IV SCH (06:50)
[2017-12-14] MEDS: GABAPENTIN 400 MG CAPSULE PO SCH ×3 (08:31→21:55)
[2017-12-14] MEDS: amLODIPine 10 MG TABLET PO SCH (08:32)
[2017-12-14] MEDS: DULoxetine 30 MG CAPSULE PO SCH ×2 (08:32→21:55)
[2017-12-14] MEDS: methylPREDNISolone SOD SUC 40 MG/1 ML VIAL IV SCH ×2 (08:32→21:43)
[2017-12-14] MEDS: PANTOPRAZOLE 40 MG VIAL IV SCH ×2 (08:32→21:53)
[2017-12-14] MEDS: SODIUM HYPOCHLORITE 0.25% IRRIG 473 ML BOTTLE TOP SCH (08:33)
[2017-12-14] MEDS: BACITRACIN OINT 0.9 GM PACK TOP SCH ×3 (08:33→21:52)
[2017-12-14] MEDS: CARVEDILOL 3.125 MG TABLET PO SCH ×2 (08:33→16:22)
[2017-12-14] MEDS: cefTRIAXone 1,000 MG in SYRINGE 1 EACH IV SCH (11:53)
[2017-12-14] MEDS: ENOXAPARIN 40 MG/0.4 ML SYRINGE SUBCUT SCH (11:53)
[2017-12-14] MEDS: hydrALAZINE 20 MG/1 ML VIAL IV PRN (17:18)
[2017-12-14] MEDS: INSULIN GLARGINE 100 UNIT/ML SUBCUT SCH (22:25)
[2017-12-15] MEDS: SODIUM BICARB INJ 100 MEQ in SODIUM CHLORIDE 0.45% 900 ML IV SCH ×2 (02:01→09:46)
[2017-12-15 04:28] LABS: Basophils % 0.2 % (0.0-0.8); Hematocrit 24.8 VOL% (42.0-52.0); Hemoglobin 8.3 GM/DL (14.0-18.0); Immature Granulocytes % 2.6 %; Immature Granulocytes Absolute 0.31 #; Lymphocytes # 1.1 10*3/uL (1.4-4.0); Lymphocytes % 9.2 % (21.2-54.2); Mean Corpuscular HGB Conc 33.5 GM/DL (32-36); Mean Corpuscular Hemoglobin 29 PG (27-34); Mean Corpuscular Volume 87.6 FL (87-102); Neutrophils # 9.5 10*3/uL (1.4-7.4); Platelet Count 440 T/CUMM (130-400); Red Blood Count 2.83 MC/CUMM (3.8-5.5); Red Cell Distribution Width 15.9 % (9.3-17.3); White Blood Count 11.9 T/CUMM (4-12)
[2017-12-15 04:52] LABS: Calcium 8.4 MG/DL (8.5-10.1); Osmolality,Calculated 284.1 MOS/KG (273-304); Potassium 4.3 MMOL/L (3.5-5.1)
[2017-12-15] MEDS: CLINDAMYCIN INJ 600 MG in PREMIX 1 EACH IV SCH ×3 (05:58→20:11)
[2017-12-15] MEDS: DEXTROSE 50% 25 GM/50 ML VIAL IV PRN (07:20)
[2017-12-15] MEDS: methylPREDNISolone SOD SUC 40 MG/1 ML VIAL IV SCH ×2 (09:11→20:08)
[2017-12-15] MEDS: PANTOPRAZOLE 40 MG VIAL IV SCH (09:11)
[2017-12-15] MEDS: DULoxetine 30 MG CAPSULE PO SCH ×2 (09:11→20:11)
[2017-12-15] MEDS: GABAPENTIN 400 MG CAPSULE PO SCH ×3 (09:12→20:10)
[2017-12-15] MEDS: amLODIPine 10 MG TABLET PO SCH (09:12)
[2017-12-15] MEDS: CARVEDILOL 3.125 MG TABLET PO SCH (09:13)
[2017-12-15] MEDS: LISINOPRIL 10 MG TABLET PO SCH ×2 (09:13→20:10)
[2017-12-15] MEDS: BACITRACIN OINT 0.9 GM PACK TOP SCH ×3 (09:17→20:11)
[2017-12-15] MEDS: SODIUM HYPOCHLORITE 0.25% IRRIG 473 ML BOTTLE TOP SCH (09:17)
[2017-12-15] MEDS: SODIUM CHLORIDE 0.9% 1,000 ML IV SCH ×2 (09:43→20:08)
[2017-12-15] MEDS: ENOXAPARIN 40 MG/0.4 ML SYRINGE SUBCUT SCH (12:04)
[2017-12-15] MEDS: cefTRIAXone 1,000 MG in SYRINGE 1 EACH IV SCH (12:05)
[2017-12-15] MEDS: CARVEDILOL 6.25 MG TABLET PO SCH (16:47)
[2017-12-15] MEDS: INSULIN GLARGINE 100 UNIT/ML SUBCUT SCH (20:18)
[2017-12-15] MEDS: cloNIDine 0.1 MG TABLET PO PRN (22:22)
[2017-12-16 04:47] LABS: Calcium 8.2 MG/DL (8.5-10.1); Potassium 4.6 MMOL/L (3.5-5.1)
[2017-12-16] MEDS: CLINDAMYCIN INJ 600 MG in PREMIX 1 EACH IV SCH ×3 (05:03→21:28)
[2017-12-16] MEDS: SODIUM CHLORIDE 0.9% 1,000 ML IV SCH ×2 (08:07→19:07)
[2017-12-16] MEDS: DULoxetine 30 MG CAPSULE PO SCH ×2 (08:09→21:29)
[2017-12-16] MEDS: CARVEDILOL 6.25 MG TABLET PO SCH ×2 (08:10→16:13)
[2017-12-16] MEDS: GABAPENTIN 400 MG CAPSULE PO SCH ×3 (08:10→21:29)
[2017-12-16] MEDS: LISINOPRIL 10 MG TABLET PO SCH ×2 (08:11→21:29)
[2017-12-16] MEDS: methylPREDNISolone SOD SUC 40 MG/1 ML VIAL IV SCH ×2 (08:13→14:29)
[2017-12-16] MEDS: MORPHINE 4 MG/1 ML VIAL IV PRN (08:14)
[2017-12-16] MEDS: BACITRACIN OINT 0.9 GM PACK TOP SCH ×3 (08:14→21:29)
[2017-12-16] MEDS ORDERED: PANTOPRAZOLE 40 MG VIAL IV SCH (09:00)
[2017-12-16] MEDS: amLODIPine 10 MG TABLET PO SCH (09:04)
[2017-12-16] MEDS: SODIUM HYPOCHLORITE 0.25% IRRIG 473 ML BOTTLE TOP SCH (09:05)
[2017-12-16] MEDS: PANTOPRAZOLE 40 MG TABLET PO SCH (14:28)
[2017-12-16] MEDS: cefTRIAXone 1,000 MG in SYRINGE 1 EACH IV SCH (14:29)
[2017-12-16] MEDS: ENOXAPARIN 40 MG/0.4 ML SYRINGE SUBCUT SCH (14:29)
[2017-12-16] MEDS: INSULIN GLARGINE 100 UNIT/ML SUBCUT SCH (21:30)
[2017-12-17 05:50] LABS: Basophils % 0.2 % (0.0-0.8); Eosinophils % 0.2 % (0.00-10.9); Hematocrit 25.5 VOL% (42.0-52.0); Hemoglobin 8.1 GM/DL (14.0-18.0); Immature Granulocytes % 1.8 %; Immature Granulocytes Absolute 0.21 #; Mean Corpuscular HGB Conc 31.8 GM/DL (32-36); Mean Corpuscular Hemoglobin 29 PG (27-34); Mean Corpuscular Volume 91.1 FL (87-102); Mean Platelet Volume 9.6 FL (9.6-12.0); Monocytes # 1.7 10*3/uL (0.11-0.8); Monocytes % 14.4 % (1.7-12.7); Neutrophils # 7.8 10*3/uL (1.4-7.4); Neutrophils % 66.4 % (38.7-73.9); Platelet Count 415 T/CUMM (130-400); Red Cell Distribution Width 15.5 % (9.3-17.3); White Blood Count 11.8 T/CUMM (4-12)
[2017-12-17] MEDS: SODIUM CHLORIDE 0.9% 1,000 ML IV SCH ×3 (05:50→16:12)
[2017-12-17] MEDS: CLINDAMYCIN INJ 600 MG in PREMIX 1 EACH IV SCH ×3 (05:51→20:26)
[2017-12-17 06:04] LABS: Calcium 7.9 MG/DL (8.5-10.1); Osmolality,Calculated 288.5 MOS/KG (273-304); Potassium 4.5 MMOL/L (3.5-5.1)
[2017-12-17] MEDS: DULoxetine 30 MG CAPSULE PO SCH ×2 (09:30→20:25)
[2017-12-17] MEDS: amLODIPine 10 MG TABLET PO SCH (09:31)
[2017-12-17] MEDS: SODIUM HYPOCHLORITE 0.25% IRRIG 473 ML BOTTLE TOP SCH (09:31)
[2017-12-17] MEDS: CARVEDILOL 6.25 MG TABLET PO SCH ×2 (09:31→16:10)
[2017-12-17] MEDS: LISINOPRIL 10 MG TABLET PO SCH (09:31)
[2017-12-17] MEDS: BACITRACIN OINT 0.9 GM PACK TOP SCH ×3 (09:31→20:25)
[2017-12-17] MEDS: ENOXAPARIN 40 MG/0.4 ML SYRINGE SUBCUT SCH (09:31)
[2017-12-17] MEDS: methylPREDNISolone SOD SUC 40 MG/1 ML VIAL IV SCH (09:32)
[2017-12-17] MEDS: PANTOPRAZOLE 40 MG TABLET PO SCH (09:32)
[2017-12-17] MEDS: cefTRIAXone 1,000 MG in SYRINGE 1 EACH IV SCH (09:36)
[2017-12-17] MEDS: GABAPENTIN 400 MG CAPSULE PO SCH ×3 (10:13→20:25)
[2017-12-17] MEDS ORDERED: DEXTROSE 50% 25 GM/50 ML VIAL IV PRN (16:31)
[2017-12-17] MEDS ORDERED: GLUCAGON 1 MG VIAL IM PRN (16:31)
[2017-12-17] MEDS ORDERED: INSULIN GLARGINE 100 UNIT/ML SUBCUT SCH (21:00)
[2017-12-17] MEDS: INSULIN REGULAR 100 UNIT/ML SUBCUT SCH (21:06)
[2017-12-18] MEDS: cloNIDine 0.1 MG TABLET PO PRN (01:23)
[2017-12-18] MEDS: CLINDAMYCIN INJ 600 MG in PREMIX 1 EACH IV SCH ×3 (05:17→21:34)
[2017-12-18] MEDS: INSULIN REGULAR 100 UNIT/ML SUBCUT SCH ×4 (08:08→21:37)
[2017-12-18] MEDS: SODIUM CHLORIDE 0.9% 1,000 ML IV SCH (09:20)
[2017-12-18] MEDS: DULoxetine 30 MG CAPSULE PO SCH ×2 (09:21→21:36)
[2017-12-18] MEDS: CARVEDILOL 6.25 MG TABLET PO SCH ×2 (09:21→17:23)
[2017-12-18] MEDS: GABAPENTIN 400 MG CAPSULE PO SCH ×3 (09:21→21:37)
[2017-12-18] MEDS: amLODIPine 10 MG TABLET PO SCH (09:22)
[2017-12-18] MEDS: ENOXAPARIN 40 MG/0.4 ML SYRINGE SUBCUT SCH (09:22)
[2017-12-18] MEDS: PANTOPRAZOLE 40 MG TABLET PO SCH (09:22)
[2017-12-18] MEDS: BACITRACIN OINT 0.9 GM PACK TOP SCH ×3 (09:22→21:42)
[2017-12-18] MEDS: INSULIN GLARGINE 100 UNIT/ML SUBCUT SCH (09:23)
[2017-12-18] MEDS: cefTRIAXone 1,000 MG in SYRINGE 1 EACH IV SCH (09:24)
[2017-12-18] MEDS: SODIUM HYPOCHLORITE 0.25% IRRIG 473 ML BOTTLE TOP SCH (09:24)
[2017-12-18] MEDS: methylPREDNISolone SOD SUC 40 MG/1 ML VIAL IV SCH (09:30)
[2017-12-18] MEDS ORDERED: FUROSEMIDE 40 MG/4 ML VIAL IV ONE (10:30)
[2017-12-18] MEDS ORDERED: TUBERCULIN SKIN TEST 0.1 ML SYRINGE INTRADERM ONE (11:00)
[2017-12-19] MEDS: CLINDAMYCIN INJ 600 MG in PREMIX 1 EACH IV SCH (05:49)
[2017-12-19 06:50] LABS: Albumin 1.4 G/DL (3.4-5.0); Bilirubin,Total 0.5 MG/DL (0.2-1.0); Calcium 7.7 MG/DL (8.5-10.1); Osmolality,Calculated 288.4 MOS/KG (273-304); Potassium 4.6 MMOL/L (3.5-5.1); Total Protein 5.2 G/DL (6.4-8.3)
[2017-12-19] MEDS: INSULIN REGULAR 100 UNIT/ML SUBCUT SCH ×4 (07:57→21:27)
[2017-12-19 08:00] LABS: Basophils % 0.2 % (0.0-0.8); Eosinophils # 0.3 10*3/uL (0.0-0.87); Eosinophils % 1.1 % (0.00-10.9); Hematocrit 22.2 VOL% (42.0-52.0); Hemoglobin 7.1 GM/DL (14.0-18.0); Immature Granulocytes % 1.4 %; Lymphocytes # 2.1 10*3/uL (1.4-4.0); Lymphocytes % 9.6 % (21.2-54.2); Mean Corpuscular Hemoglobin 30 PG (27-34); Mean Corpuscular Volume 93.3 FL (87-102); Monocytes # 1.5 10*3/uL (0.11-0.8); Monocytes % 6.8 % (1.7-12.7); Neutrophils # 17.8 10*3/uL (1.4-7.4); Neutrophils % 80.9 % (38.7-73.9); Platelet Count 434 T/CUMM (130-400); Red Blood Count 2.38 MC/CUMM (3.8-5.5); Red Cell Distribution Width 15.9 % (9.3-17.3)
[2017-12-19 08:20] LABS: Eosinophils 1 % (0-10); Hypochromasia 1+; Lymphocytes 13 % (20-55); Ovalocytes Slight; Platelet Estimate Adequate; Segmented Neutrophils 82 % (50-85); Total Cells Counted 100
[2017-12-19] MEDS: GABAPENTIN 400 MG CAPSULE PO SCH ×3 (09:50→21:23)
[2017-12-19] MEDS: DULoxetine 30 MG CAPSULE PO SCH (09:50)
[2017-12-19] MEDS: amLODIPine 10 MG TABLET PO SCH (09:51)
[2017-12-19] MEDS: CARVEDILOL 6.25 MG TABLET PO SCH ×2 (09:51→16:49)
[2017-12-19] MEDS: PANTOPRAZOLE 40 MG TABLET PO SCH (09:51)
[2017-12-19] MEDS: BACITRACIN OINT 0.9 GM PACK TOP SCH ×3 (09:51→21:23)
[2017-12-19] MEDS: INSULIN GLARGINE 100 UNIT/ML SUBCUT SCH (09:52)
[2017-12-19] MEDS: methylPREDNISolone SOD SUC 40 MG/1 ML VIAL IV SCH (09:52)
[2017-12-19] MEDS: ENOXAPARIN 40 MG/0.4 ML SYRINGE SUBCUT SCH (09:52)
[2017-12-19] MEDS: SODIUM HYPOCHLORITE 0.25% IRRIG 473 ML BOTTLE TOP SCH (09:52)
[2017-12-19] MEDS: levETIRAcetam LIQUID 100 MG/ML 30 ML/BOTTLE PO SCH ×2 (09:59→21:26)
[2017-12-19] MEDS ORDERED: diphenhydrAMINE 50 MG/1 ML VIAL IV PRN (11:44)
[2017-12-19] MEDS ORDERED: SODIUM CHLORIDE 0.9% 1,000 ML IV PRN (11:44)
[2017-12-19] MEDS ORDERED: FUROSEMIDE 20 MG/2 ML VIAL IV PRN (11:44)
[2017-12-19] MEDS ORDERED: ACETAMINOPHEN 325 MG TABLET PO PRN (11:44)
[2017-12-19] MEDS: NYSTATIN 500,000 UNIT/5 ML UDCUP SWISH/SWAL SCH ×3 (14:09→21:23)
[2017-12-19] MEDS: cloNIDine 0.1 MG TABLET PO PRN (19:01)
[2017-12-20 05:38] LABS: Basophils % 0.2 % (0.0-0.8); Eosinophils # 0.1 10*3/uL (0.0-0.87); Eosinophils % 0.3 % (0.00-10.9); Hematocrit 26.8 VOL% (42.0-52.0); Immature Granulocytes % 1.1 %; Immature Granulocytes Absolute 0.26 #; Lymphocytes # 2.7 10*3/uL (1.4-4.0); Lymphocytes % 11.2 % (21.2-54.2); Mean Corpuscular HGB Conc 33.2 GM/DL (32-36); Mean Corpuscular Hemoglobin 30 PG (27-34); Mean Platelet Volume 9.9 FL (9.6-12.0); Monocytes # 1.3 10*3/uL (0.11-0.8); Monocytes % 5.2 % (1.7-12.7); Neutrophils # 19.9 10*3/uL (1.4-7.4); Platelet Count 402 T/CUMM (130-400); Red Cell Distribution Width 15.6 % (9.3-17.3); White Blood Count 24.3 T/CUMM (4-12)
[2017-12-20 05:45] LABS: Hemoglobin 8.9 GM/DL (14.0-18.0); Red Blood Count 3.01 MC/CUMM (3.8-5.5)
[2017-12-20 06:00] LABS: Anisocytosis 1+; Band Neutrophils 1 % (0-10); Burr Cells Few; Eosinophils 2 % (0-10); Lymphocytes 17 % (20-55); Macrocytosis 2+; Platelet Estimate Normal; Segmented Neutrophils 80 % (50-85); Total Cells Counted 100
[2017-12-20 06:24] LABS: Alanine Aminotransferase 14 U/L (16-61); Albumin 1.5 G/DL (3.4-5.0); Alkaline Phosphatase 93 U/L (45-117); Aspartate Amino Transferase 14 U/L (0-37); Bilirubin,Total < 0.39 MG/DL (0.2-1.0); Blood Urea Nitrogen 33 MG/DL (7-18); Glucose 136 MG/DL (74-106); Osmolality,Calculated 287.4 MOS/KG (273-304); Sodium 140 MMOL/L (136-145); Total Protein 5.4 G/DL (6.4-8.3)
[2017-12-20] MEDS: INSULIN REGULAR 100 UNIT/ML SUBCUT SCH ×2 (07:34→12:36)
[2017-12-20 07:48] VITALS: BP 141/70
[2017-12-20] MEDS ORDERED: predniSONE 20 MG TABLET PO SCH (09:00)
[2017-12-20] MEDS ORDERED: DULoxetine 30 MG CAPSULE PO SCH (09:00)
[2017-12-20] MEDS: ENOXAPARIN 40 MG/0.4 ML SYRINGE SUBCUT SCH (09:15)
[2017-12-20] MEDS: NYSTATIN 500,000 UNIT/5 ML UDCUP SWISH/SWAL SCH ×2 (09:16→14:30)
[2017-12-20] MEDS: GABAPENTIN 400 MG CAPSULE PO SCH (09:16)
[2017-12-20] MEDS: CARVEDILOL 6.25 MG TABLET PO SCH (09:16)
[2017-12-20] MEDS: PANTOPRAZOLE 40 MG TABLET PO SCH (09:16)
[2017-12-20] MEDS: BACITRACIN OINT 0.9 GM PACK TOP SCH (09:16)
[2017-12-20] MEDS: amLODIPine 10 MG TABLET PO SCH (09:16)
[2017-12-20] MEDS: levETIRAcetam LIQUID 100 MG/ML 30 ML/BOTTLE PO SCH (09:17)
[2017-12-20] MEDS: SODIUM HYPOCHLORITE 0.25% IRRIG 473 ML BOTTLE TOP SCH (09:17)
[2017-12-20] MEDS: INSULIN GLARGINE 100 UNIT/ML SUBCUT SCH (09:17)
== END 2017-12-20 15:49 | DRG 130 ==
LOC: N.ED 10:08 → SUATTDRO 12:19 → N.EDINP 12:19 → N.ICU 12:48 → N.2E 12-16 15:31
PROVIDERS: ADMIT Family Medicine; ATTEND Internal Medicine

== ENCOUNTER 2018-05-06 17:47 | Inpatient (IN) ==
[2018-05-06] MEDS ORDERED: VANCOMYCIN INJ 750 MG in SODIUM CHLORIDE 0.9% 250 ML IV STA (17:57)
[2018-05-06] MEDS ORDERED: SODIUM CHLORIDE 0.9% 1,000 ML IV STA ×2 (17:57→20:33)
[2018-05-06] MEDS ORDERED: MORPHINE 10 MG/1 ML VIAL IV STA (17:59)
[2018-05-06] MEDS ORDERED: ONDANSETRON 4 MG/2 ML VIAL IV STA (17:59)
[2018-05-06] MEDS ORDERED: VANCOMYCIN 1,000 MG VIAL ONE (18:21)
[2018-05-06 19:10] LABS: Basophils # 0.1 10*3/uL (0.0-0.2); Basophils % 0.3 % (0.0-0.8); Eosinophils % 0.1 % (0.00-10.9); Hemoglobin 7.5 GM/DL (14.0-18.0); Immature Granulocytes % 0.6 %; Lymphocytes # 1.2 10*3/uL (1.4-4.0); Lymphocytes % 6.6 % (21.2-54.2); Mean Corpuscular HGB Conc 32.6 GM/DL (32-36); Mean Corpuscular Hemoglobin 30 PG (27-34); Mean Corpuscular Volume 91.3 FL (87-102); Mean Platelet Volume 10.4 FL (9.6-12.0); Monocytes # 1.5 10*3/uL (0.11-0.8); Monocytes % 8.3 % (1.7-12.7); Neutrophils # 15.1 10*3/uL (1.4-7.4); Neutrophils % 84.1 % (38.7-73.9); Platelet Count 317 T/CUMM (130-400); Red Blood Count 2.52 MC/CUMM (3.8-5.5); Red Cell Distribution Width 13.8 % (9.3-17.3); White Blood Count 17.9 T/CUMM (4-12)
[2018-05-06 19:28] LABS: PT Patient Result 10.5 SECS
[2018-05-06 19:35] LABS: Alanine Aminotransferase < 9 U/L (16-61); Albumin 1.6 G/DL (3.4-5.0); Alkaline Phosphatase 127 U/L (45-117); Aspartate Amino Transferase 8 U/L (0-37); Bilirubin,Total < 0.39 MG/DL (0.2-1.0); Blood Urea Nitrogen 21 MG/DL (7-18); Calcium 7.7 MG/DL (8.5-10.1); Glucose 432 MG/DL (74-106); Osmolality,Calculated 279.9 MOS/KG (273-304); Potassium 4.3 MMOL/L (3.5-5.1); Sodium 129 MMOL/L (136-145); Total Protein 5.8 G/DL (6.4-8.3)
[2018-05-06] MEDS ORDERED: INSULIN REGULAR 100 UNIT/ML IV STA (19:46)
[2018-05-06] MEDS ORDERED: GLUCAGON 1 MG VIAL IM PRN (20:10)
[2018-05-06] MEDS ORDERED: ACETAMINOPHEN 325 MG TABLET PO PRN (20:10)
[2018-05-06] MEDS ORDERED: SODIUM CHLORIDE 0.9% 1,000 ML IV PRN (20:10)
[2018-05-06] MEDS ORDERED: VANCOMYCIN INJ 1,000 MG in SODIUM CHLORIDE 0.9% 250 ML IV PRN (20:30)
[2018-05-06 20:46] LABS: % Iron Saturation 7.9 % (18-50); Ferritin 216.1 ng/ml (26-388)
[2018-05-06 20:47] LABS: Folate 8.3 NG/ML (5.4-24.0)
[2018-05-06] MEDS: GABAPENTIN 400 MG CAPSULE PO SCH (23:21)
[2018-05-06] MEDS: DULoxetine 30 MG CAPSULE PO SCH (23:21)
[2018-05-06] MEDS: INSULIN GLARGINE 100 UNIT/ML SUBCUT SCH (23:21)
[2018-05-06] MEDS: ENOXAPARIN 30 MG/0.3 ML SYRINGE SUBCUT SCH (23:21)
[2018-05-06] MEDS: HYDROmorphone 2 MG/1 ML VIAL IV PRN (23:23)
[2018-05-06] MEDS: CEFEPIME 2,000 MG in SYRINGE 1 EACH IV SCH (23:26)
[2018-05-07] MEDS: INSULIN REGULAR 100 UNIT/ML SUBCUT SCH ×4 (00:41→18:40)
[2018-05-07] MEDS: PROMETHAZINE 25 MG/1 ML VIAL IM PRN ×2 (01:05→21:30)
[2018-05-07] MEDS: DEXTROSE 50% 25 GM/50 ML SYRINGE IV PRN (05:11)
[2018-05-07] MEDS: CEFEPIME 2,000 MG in SYRINGE 1 EACH IV SCH ×3 (05:11→23:42)
[2018-05-07 05:15] LABS: Basophils # 0.1 10*3/uL (0.0-0.2); Basophils % 0.4 % (0.0-0.8); Eosinophils # 0.1 10*3/uL (0.0-0.87); Eosinophils % 0.7 % (0.00-10.9); Hematocrit 27.2 VOL% (42.0-52.0); Immature Granulocytes % 0.8 %; Immature Granulocytes Absolute 0.14 #; Lymphocytes # 2.3 10*3/uL (1.4-4.0); Lymphocytes % 13.2 % (21.2-54.2); Mean Corpuscular HGB Conc 33.1 GM/DL (32-36); Mean Corpuscular Hemoglobin 30 PG (27-34); Mean Corpuscular Volume 90.7 FL (87-102); Mean Platelet Volume 10.4 FL (9.6-12.0); Monocytes # 1.8 10*3/uL (0.11-0.8); Monocytes % 10.4 % (1.7-12.7); Neutrophils % 74.5 % (38.7-73.9); Platelet Count 303 T/CUMM (130-400); Red Cell Distribution Width 14.2 % (9.3-17.3); White Blood Count 17.5 T/CUMM (4-12)
[2018-05-07 05:39] LABS: Alanine Aminotransferase < 9 U/L (16-61); Albumin 1.6 G/DL (3.4-5.0); Alkaline Phosphatase 129 U/L (45-117); Aspartate Amino Transferase 9 U/L (0-37); Blood Urea Nitrogen 21 MG/DL (7-18); Cholesterol 164 MG/DL (50-200); HDL Cholesterol 44 MG/DL (40-60); Osmolality,Calculated 275.5 MOS/KG (273-304); Risk Ratio 3.73; Sodium 139 MMOL/L (136-145); Total Protein 5.6 G/DL (6.4-8.3); Triglycerides 108 MG/DL (2-150); VLDL CHOLESTEROL 21.6 MG/DL
[2018-05-07 05:42] LABS: Glucose 28 MG/DL (74-106)
[2018-05-07] MEDS: HYDROmorphone 2 MG/1 ML VIAL IV PRN ×3 (07:30→19:34)
[2018-05-07] MEDS: SODIUM CHLORIDE 0.9% 1,000 ML IV SCH ×4 (08:15→23:51)
[2018-05-07] MEDS ORDERED: PANTOPRAZOLE 40 MG TABLET PO SCH (09:00)
[2018-05-07] MEDS: CARVEDILOL 3.125 MG TABLET PO SCH ×2 (09:08→18:40)
[2018-05-07 09:32] LABS: Amorphous Crystals,Urine Occasional /HPF (Few); Apearance,Urine CLOUDY (Clear); Bilirubin,Urine Negative (Negative); Blood, Urine Small mg/dL (Negative); Glucose,Urine (UA) >=500 mg/dL (Negative); Hyaline Casts,Urine 13 /LPF (0-3); Ketones,Urine Negative (Negative); Mucus,Urine Occasional /LPF (Occasional); Nitrite,Urine Negative (Negative); Protein,Urine >=500 MG/DL; RBC,Urine 4 /HPF (0-4); Urine Color Yellow (Yellow); Urine Specific Gravity 1.016 (1.001-1.035); Urine Urobilinogen < 2.0 EU/DL (0.2-1.0); WBC,Urine 7 /HPF (0-6)
[2018-05-07] MEDS: GABAPENTIN 400 MG CAPSULE PO SCH ×3 (11:58→23:41)
[2018-05-07] MEDS: LORATADINE 10 MG TABLET PO SCH (11:58)
[2018-05-07] MEDS: DULoxetine 30 MG CAPSULE PO SCH ×2 (11:58→23:41)
[2018-05-07] MEDS: LACTOBACILLUS ACIDOPHILUS/BULGARICUS CAPLET PO SCH (11:58)
[2018-05-07] MEDS: INSULIN GLARGINE 100 UNIT/ML SUBCUT SCH (11:58)
[2018-05-07] MEDS: PANTOPRAZOLE 40 MG TABLET PO SCH (11:58)
[2018-05-07] MEDS: FLUTICASONE 50 MCG NASAL SPRAY 16 GM BOTTLE BOTH NARES SCH (13:06)
[2018-05-07] MEDS ORDERED: MAGNESIUM SULF RIDER 4 GM in PREMIX 1 EACH IV PRN (15:25)
[2018-05-07] MEDS ORDERED: MAGNESIUM SULF RIDER 2 GM in PREMIX 1 EACH IV PRN (15:25)
[2018-05-07] MEDS ORDERED: BACITRACIN OINT 0.9 GM PACK TOP ONE (16:38)
[2018-05-07] MEDS ORDERED: VANCOMYCIN INJ 1,000 MG in SODIUM CHLORIDE 0.9% 250 ML IV SCH (18:00)
[2018-05-07] MEDS ORDERED: SEVOFLURANE 1 UNIT/15 MINUTE INH ONE (18:17)
[2018-05-07] MEDS ORDERED: PROPOFOL 200 MG/20 ML VIAL IV ONE (18:17)
[2018-05-07] MEDS ORDERED: fentaNYL 100 MCG/2 ML VIAL ONE (18:18)
[2018-05-07] MEDS ORDERED: MIDAZOLAM 2 MG/2 ML VIAL ONE (18:18)
[2018-05-07 22:31] LABS: Lymphocytes,Synovial Fluid 10 %; Neutrophils,Synovial Fluid 84 %
[2018-05-07] MEDS: ENOXAPARIN 30 MG/0.3 ML SYRINGE SUBCUT SCH (23:41)
[2018-05-08] MEDS: INSULIN GLARGINE 100 UNIT/ML SUBCUT SCH ×3 (00:03→22:10)
[2018-05-08] MEDS: INSULIN REGULAR 100 UNIT/ML SUBCUT SCH ×4 (00:04→18:38)
[2018-05-08 04:54] LABS: Basophils % 0.3 % (0.0-0.8); Eosinophils # 0.2 10*3/uL (0.0-0.87); Eosinophils % 1.2 % (0.00-10.9); Hematocrit 28.6 VOL% (42.0-52.0); Hemoglobin 9.6 GM/DL (14.0-18.0); Immature Granulocytes % 0.8 %; Immature Granulocytes Absolute 0.11 #; Lymphocytes # 1.3 10*3/uL (1.4-4.0); Lymphocytes % 8.8 % (21.2-54.2); Mean Corpuscular HGB Conc 33.6 GM/DL (32-36); Mean Corpuscular Hemoglobin 30 PG (27-34); Mean Corpuscular Volume 88.8 FL (87-102); Mean Platelet Volume 9.7 FL (9.6-12.0); Monocytes # 1.9 10*3/uL (0.11-0.8); Monocytes % 13.2 % (1.7-12.7); Neutrophils # 10.9 10*3/uL (1.4-7.4); Neutrophils % 75.7 % (38.7-73.9); Platelet Count 303 T/CUMM (130-400); Red Blood Count 3.22 MC/CUMM (3.8-5.5); Red Cell Distribution Width 14.7 % (9.3-17.3); White Blood Count 14.4 T/CUMM (4-12)
[2018-05-08 05:22] LABS: Calcium 7.7 MG/DL (8.5-10.1); Osmolality,Calculated 275.8 MOS/KG (273-304); Potassium 4.2 MMOL/L (3.5-5.1)
[2018-05-08] MEDS: CEFEPIME 2,000 MG in SYRINGE 1 EACH IV SCH (05:47)
[2018-05-08] MEDS: HYDROmorphone 2 MG/1 ML VIAL IV PRN ×2 (05:58→18:23)
[2018-05-08] MEDS: GABAPENTIN 400 MG CAPSULE PO SCH ×3 (08:51→22:09)
[2018-05-08] MEDS: DULoxetine 30 MG CAPSULE PO SCH ×2 (08:51→22:09)
[2018-05-08] MEDS: LORATADINE 10 MG TABLET PO SCH (08:52)
[2018-05-08] MEDS: FLUTICASONE 50 MCG NASAL SPRAY 16 GM BOTTLE BOTH NARES SCH (08:52)
[2018-05-08] MEDS: LACTOBACILLUS ACIDOPHILUS/BULGARICUS CAPLET PO SCH (08:52)
[2018-05-08] MEDS: PANTOPRAZOLE 40 MG TABLET PO SCH (08:53)
[2018-05-08] MEDS: PROMETHAZINE 25 MG/1 ML VIAL IM PRN ×2 (08:54→18:25)
[2018-05-08] MEDS: CARVEDILOL 3.125 MG TABLET PO SCH ×2 (09:50→17:27)
[2018-05-08 11:41] LABS: Cholesterol Crystals None Seen /LPF
[2018-05-08] MEDS: SODIUM CHLORIDE 0.9% 1,000 ML IV SCH ×2 (12:00→19:23)
[2018-05-08] MEDS: CEFTAROLINE 600 MG in SODIUM CHLORIDE 0.9% 100 ML IV SCH (12:43)
[2018-05-08] MEDS: ENOXAPARIN 30 MG/0.3 ML SYRINGE SUBCUT SCH (22:09)
[2018-05-09] MEDS: SODIUM CHLORIDE 0.9% 1,000 ML IV SCH ×4 (02:49→22:43)
[2018-05-09] MEDS: CEFTAROLINE 600 MG in SODIUM CHLORIDE 0.9% 100 ML IV SCH (02:51)
[2018-05-09] MEDS: INSULIN REGULAR 100 UNIT/ML SUBCUT SCH ×5 (02:51→23:58)
[2018-05-09 05:08] LABS: Basophils % 0.2 % (0.0-0.8); Eosinophils # 0.2 10*3/uL (0.0-0.87); Hematocrit 31.3 VOL% (42.0-52.0); Hemoglobin 10.1 GM/DL (14.0-18.0); Immature Granulocytes % 0.9 %; Immature Granulocytes Absolute 0.14 #; Lymphocytes # 1.6 10*3/uL (1.4-4.0); Mean Corpuscular HGB Conc 32.3 GM/DL (32-36); Mean Corpuscular Hemoglobin 29 PG (27-34); Mean Corpuscular Volume 91.3 FL (87-102); Mean Platelet Volume 9.7 FL (9.6-12.0); Monocytes # 1.5 10*3/uL (0.11-0.8); Neutrophils # 12.7 10*3/uL (1.4-7.4); Neutrophils % 78.9 % (38.7-73.9); Platelet Count 347 T/CUMM (130-400); Red Blood Count 3.43 MC/CUMM (3.8-5.5); White Blood Count 16.2 T/CUMM (4-12)
[2018-05-09 05:26] LABS: Calcium 7.8 MG/DL (8.5-10.1); Osmolality,Calculated 275.2 MOS/KG (273-304); Potassium 4.4 MMOL/L (3.5-5.1)
[2018-05-09] MEDS: PANTOPRAZOLE 40 MG TABLET PO SCH (08:20)
[2018-05-09] MEDS: LORATADINE 10 MG TABLET PO SCH (08:21)
[2018-05-09] MEDS: DULoxetine 30 MG CAPSULE PO SCH ×2 (08:21→21:30)
[2018-05-09] MEDS: CARVEDILOL 3.125 MG TABLET PO SCH ×2 (08:21→18:25)
[2018-05-09] MEDS: FLUTICASONE 50 MCG NASAL SPRAY 16 GM BOTTLE BOTH NARES SCH (08:21)
[2018-05-09] MEDS: GABAPENTIN 400 MG CAPSULE PO SCH ×3 (08:21→21:31)
[2018-05-09] MEDS: LACTOBACILLUS ACIDOPHILUS/BULGARICUS CAPLET PO SCH (08:21)
[2018-05-09] MEDS: INSULIN GLARGINE 100 UNIT/ML SUBCUT SCH ×2 (08:22→22:43)
[2018-05-09] MEDS: ceFAZolin 1,000 MG in SYRINGE 1 EACH IV SCH ×2 (12:09→21:31)
[2018-05-09] MEDS: HYDROmorphone 2 MG/1 ML VIAL IV PRN ×3 (12:37→21:32)
[2018-05-09] MEDS: PROMETHAZINE 25 MG/1 ML VIAL IM PRN ×2 (12:40→21:41)
[2018-05-09] MEDS: ENOXAPARIN 30 MG/0.3 ML SYRINGE SUBCUT SCH (21:30)
[2018-05-10 04:41] LABS: Basophils # 0.1 10*3/uL (0.0-0.2); Basophils % 0.3 % (0.0-0.8); Eosinophils # 0.4 10*3/uL (0.0-0.87); Eosinophils % 2.5 % (0.00-10.9); Hematocrit 31.2 VOL% (42.0-52.0); Hemoglobin 10.2 GM/DL (14.0-18.0); Immature Granulocytes % 0.7 %; Immature Granulocytes Absolute 0.11 #; Lymphocytes # 1.6 10*3/uL (1.4-4.0); Lymphocytes % 10.5 % (21.2-54.2); Mean Corpuscular HGB Conc 32.7 GM/DL (32-36); Mean Corpuscular Hemoglobin 30 PG (27-34); Mean Corpuscular Volume 90.2 FL (87-102); Mean Platelet Volume 9.4 FL (9.6-12.0); Monocytes # 1.6 10*3/uL (0.11-0.8); Monocytes % 10.1 % (1.7-12.7); Neutrophils # 11.8 10*3/uL (1.4-7.4); Neutrophils % 75.9 % (38.7-73.9); Platelet Count 373 T/CUMM (130-400); Red Blood Count 3.46 MC/CUMM (3.8-5.5); Red Cell Distribution Width 14.8 % (9.3-17.3); White Blood Count 15.5 T/CUMM (4-12)
[2018-05-10] MEDS: SODIUM CHLORIDE 0.9% 1,000 ML IV SCH ×3 (04:48→20:21)
[2018-05-10] MEDS: ceFAZolin 1,000 MG in SYRINGE 1 EACH IV SCH ×3 (04:49→21:22)
[2018-05-10 05:10] LABS: Calcium 8.2 MG/DL (8.5-10.1); Osmolality,Calculated 271.8 MOS/KG (273-304); Potassium 3.9 MMOL/L (3.5-5.1)
[2018-05-10] MEDS: DEXTROSE 50% 25 GM/50 ML SYRINGE IV PRN (05:45)
[2018-05-10] MEDS: INSULIN REGULAR 100 UNIT/ML SUBCUT SCH ×3 (06:15→19:09)
[2018-05-10] MEDS: HYDROmorphone 2 MG/1 ML VIAL IV PRN (10:27)
[2018-05-10] MEDS: LORATADINE 10 MG TABLET PO SCH (10:29)
[2018-05-10] MEDS: LACTOBACILLUS ACIDOPHILUS/BULGARICUS CAPLET PO SCH (10:29)
[2018-05-10] MEDS: GABAPENTIN 400 MG CAPSULE PO SCH ×3 (10:29→21:28)
[2018-05-10] MEDS: CARVEDILOL 3.125 MG TABLET PO SCH ×2 (10:30→16:20)
[2018-05-10] MEDS: DULoxetine 30 MG CAPSULE PO SCH ×2 (10:30→21:28)
[2018-05-10] MEDS: PANTOPRAZOLE 40 MG TABLET PO SCH (10:30)
[2018-05-10] MEDS: INSULIN GLARGINE 100 UNIT/ML SUBCUT SCH ×2 (10:42→21:27)
[2018-05-10] MEDS: FLUTICASONE 50 MCG NASAL SPRAY 16 GM BOTTLE BOTH NARES SCH (13:27)
[2018-05-10] MEDS: PROMETHAZINE 25 MG/1 ML VIAL IM PRN (17:36)
[2018-05-10] MEDS: ENOXAPARIN 30 MG/0.3 ML SYRINGE SUBCUT SCH (21:28)
[2018-05-11] MEDS: HYDROmorphone 2 MG/1 ML VIAL IV PRN (00:25)
[2018-05-11] MEDS: INSULIN REGULAR 100 UNIT/ML SUBCUT SCH ×4 (00:28→18:09)
[2018-05-11] MEDS: ceFAZolin 1,000 MG in SYRINGE 1 EACH IV SCH ×3 (04:00→22:07)
[2018-05-11] MEDS: SODIUM CHLORIDE 0.9% 1,000 ML IV SCH ×3 (04:01→20:11)
[2018-05-11] MEDS: DULoxetine 30 MG CAPSULE PO SCH ×2 (09:04→22:10)
[2018-05-11] MEDS: CARVEDILOL 3.125 MG TABLET PO SCH ×2 (09:05→18:08)
[2018-05-11] MEDS: LORATADINE 10 MG TABLET PO SCH (09:05)
[2018-05-11] MEDS: PANTOPRAZOLE 40 MG TABLET PO SCH (09:05)
[2018-05-11] MEDS: LACTOBACILLUS ACIDOPHILUS/BULGARICUS CAPLET PO SCH (09:05)
[2018-05-11] MEDS: GABAPENTIN 400 MG CAPSULE PO SCH ×3 (09:05→22:10)
[2018-05-11] MEDS: INSULIN GLARGINE 100 UNIT/ML SUBCUT SCH ×2 (09:06→22:10)
[2018-05-11] MEDS: FLUTICASONE 50 MCG NASAL SPRAY 16 GM BOTTLE BOTH NARES SCH (09:14)
[2018-05-11] MEDS: cloNIDine 0.1 MG TABLET PO PRN ×2 (13:10→18:09)
[2018-05-11] MEDS: ENOXAPARIN 40 MG/0.4 ML SYRINGE SUBCUT SCH (22:10)
[2018-05-12] MEDS: INSULIN REGULAR 100 UNIT/ML SUBCUT SCH ×4 (00:05→17:30)
[2018-05-12] MEDS: SODIUM CHLORIDE 0.9% 1,000 ML IV SCH ×2 (04:02→12:43)
[2018-05-12] MEDS: ceFAZolin 1,000 MG in SYRINGE 1 EACH IV SCH ×3 (04:03→18:32)
[2018-05-12] MEDS: cloNIDine 0.1 MG TABLET PO PRN ×2 (04:45→18:25)
[2018-05-12 05:15] LABS: Basophils % 0.3 % (0.0-0.8); Eosinophils # 0.4 10*3/uL (0.0-0.87); Eosinophils % 3.5 % (0.00-10.9); Hematocrit 29.3 VOL% (42.0-52.0); Hemoglobin 9.4 GM/DL (14.0-18.0); Immature Granulocytes % 0.7 %; Immature Granulocytes Absolute 0.07 #; Lymphocytes # 1.8 10*3/uL (1.4-4.0); Lymphocytes % 17.1 % (21.2-54.2); Mean Corpuscular HGB Conc 32.1 GM/DL (32-36); Mean Corpuscular Hemoglobin 29 PG (27-34); Mean Corpuscular Volume 90.2 FL (87-102); Mean Platelet Volume 9.5 FL (9.6-12.0); Monocytes # 1.1 10*3/uL (0.11-0.8); Monocytes % 10.4 % (1.7-12.7); Neutrophils # 7.1 10*3/uL (1.4-7.4); Platelet Count 425 T/CUMM (130-400); Red Blood Count 3.25 MC/CUMM (3.8-5.5); White Blood Count 10.4 T/CUMM (4-12)
[2018-05-12] MEDS: LACTOBACILLUS ACIDOPHILUS/BULGARICUS CAPLET PO SCH (08:43)
[2018-05-12] MEDS: DULoxetine 30 MG CAPSULE PO SCH ×2 (08:43→20:38)
[2018-05-12] MEDS: GABAPENTIN 400 MG CAPSULE PO SCH ×3 (08:43→20:38)
[2018-05-12] MEDS: CARVEDILOL 3.125 MG TABLET PO SCH ×2 (08:44→16:41)
[2018-05-12] MEDS: PANTOPRAZOLE 40 MG TABLET PO SCH (08:44)
[2018-05-12] MEDS: INSULIN GLARGINE 100 UNIT/ML SUBCUT SCH ×2 (08:44→20:35)
[2018-05-12] MEDS: LORATADINE 10 MG TABLET PO SCH (08:44)
[2018-05-12] MEDS: FLUTICASONE 50 MCG NASAL SPRAY 16 GM BOTTLE BOTH NARES SCH (08:54)
[2018-05-12] MEDS: DEXTROSE 50% 25 GM/50 ML SYRINGE IV PRN (17:28)
[2018-05-12] MEDS: ENOXAPARIN 40 MG/0.4 ML SYRINGE SUBCUT SCH (20:38)
[2018-05-12] MEDS: HYDROmorphone 2 MG/1 ML VIAL IV PRN (20:45)
[2018-05-13] MEDS: ceFAZolin 1,000 MG in SYRINGE 1 EACH IV SCH ×3 (04:14→20:52)
[2018-05-13 04:38] LABS: Basophils % 0.3 % (0.0-0.8); Eosinophils # 0.3 10*3/uL (0.0-0.87); Eosinophils % 2.5 % (0.00-10.9); Hemoglobin 9.2 GM/DL (14.0-18.0); Immature Granulocytes % 0.6 %; Immature Granulocytes Absolute 0.07 #; Lymphocytes # 2.3 10*3/uL (1.4-4.0); Lymphocytes % 20.2 % (21.2-54.2); Mean Corpuscular HGB Conc 32.9 GM/DL (32-36); Mean Corpuscular Hemoglobin 29 PG (27-34); Mean Corpuscular Volume 88.9 FL (87-102); Mean Platelet Volume 9.2 FL (9.6-12.0); Monocytes # 1.2 10*3/uL (0.11-0.8); Neutrophils # 7.6 10*3/uL (1.4-7.4); Neutrophils % 66.4 % (38.7-73.9); Platelet Count 441 T/CUMM (130-400); Red Blood Count 3.15 MC/CUMM (3.8-5.5); Red Cell Distribution Width 14.6 % (9.3-17.3); White Blood Count 11.5 T/CUMM (4-12)
[2018-05-13] MEDS: INSULIN REGULAR 100 UNIT/ML SUBCUT SCH ×4 (07:37→17:52)
[2018-05-13] MEDS: PANTOPRAZOLE 40 MG TABLET PO SCH (08:53)
[2018-05-13] MEDS: LACTOBACILLUS ACIDOPHILUS/BULGARICUS CAPLET PO SCH (08:53)
[2018-05-13] MEDS: GABAPENTIN 400 MG CAPSULE PO SCH ×3 (08:53→20:56)
[2018-05-13] MEDS: CARVEDILOL 3.125 MG TABLET PO SCH ×2 (08:54→17:35)
[2018-05-13] MEDS: DULoxetine 30 MG CAPSULE PO SCH ×2 (08:54→20:56)
[2018-05-13] MEDS: LORATADINE 10 MG TABLET PO SCH (08:54)
[2018-05-13] MEDS: INSULIN GLARGINE 100 UNIT/ML SUBCUT SCH ×2 (08:55→20:57)
[2018-05-13] MEDS: FLUTICASONE 50 MCG NASAL SPRAY 16 GM BOTTLE BOTH NARES SCH (09:00)
[2018-05-13] MEDS ORDERED: POLYETHYLENE GLYCOL POWDER 17 GM PACK PO ONE (09:32)
[2018-05-13] MEDS: ONDANSETRON 4 MG/2 ML VIAL IV PRN (10:20)
[2018-05-13] MEDS ORDERED: MAGNESIUM CITRATE 300 ML BOTTLE PO ONE (14:00)
[2018-05-13] MEDS: ENOXAPARIN 40 MG/0.4 ML SYRINGE SUBCUT SCH (20:56)
[2018-05-14] MEDS: INSULIN REGULAR 100 UNIT/ML SUBCUT SCH ×4 (01:24→18:08)
[2018-05-14] MEDS: ceFAZolin 1,000 MG in SYRINGE 1 EACH IV SCH ×3 (03:43→20:41)
[2018-05-14] MEDS: cloNIDine 0.1 MG TABLET PO PRN (03:48)
[2018-05-14 05:48] LABS: Basophils # 0.1 10*3/uL (0.0-0.2); Basophils % 0.5 % (0.0-0.8); Eosinophils # 0.3 10*3/uL (0.0-0.87); Eosinophils % 2.4 % (0.00-10.9); Hematocrit 32.3 VOL% (42.0-52.0); Hemoglobin 10.6 GM/DL (14.0-18.0); Immature Granulocytes % 0.5 %; Immature Granulocytes Absolute 0.06 #; Lymphocytes % 18.6 % (21.2-54.2); Mean Corpuscular HGB Conc 32.8 GM/DL (32-36); Mean Corpuscular Hemoglobin 29 PG (27-34); Mean Corpuscular Volume 88.7 FL (87-102); Mean Platelet Volume 9.4 FL (9.6-12.0); Monocytes # 1.1 10*3/uL (0.11-0.8); Monocytes % 9.8 % (1.7-12.7); Neutrophils # 7.5 10*3/uL (1.4-7.4); Neutrophils % 68.2 % (38.7-73.9); Platelet Count 505 T/CUMM (130-400); Red Blood Count 3.64 MC/CUMM (3.8-5.5); Red Cell Distribution Width 14.6 % (9.3-17.3); White Blood Count 10.9 T/CUMM (4-12)
[2018-05-14 06:10] LABS: Calcium 7.5 MG/DL (8.5-10.1); Osmolality,Calculated 266.5 MOS/KG (273-304); Potassium 4.6 MMOL/L (3.5-5.1)
[2018-05-14 06:18] LABS: Calcium 7.8 MG/DL (8.5-10.1); Osmolality,Calculated 269.4 MOS/KG (273-304); Potassium 4.6 MMOL/L (3.5-5.1)
[2018-05-14] MEDS: FLUTICASONE 50 MCG NASAL SPRAY 16 GM BOTTLE BOTH NARES SCH (08:54)
[2018-05-14] MEDS: LORATADINE 10 MG TABLET PO SCH (08:55)
[2018-05-14] MEDS: LACTOBACILLUS ACIDOPHILUS/BULGARICUS CAPLET PO SCH (08:55)
[2018-05-14] MEDS: DULoxetine 30 MG CAPSULE PO SCH ×2 (08:55→20:45)
[2018-05-14] MEDS: PANTOPRAZOLE 40 MG TABLET PO SCH (08:55)
[2018-05-14] MEDS: MELOXICAM 7.5 MG TABLET PO SCH (08:55)
[2018-05-14] MEDS: CARVEDILOL 3.125 MG TABLET PO SCH ×2 (08:56→16:28)
[2018-05-14] MEDS: POLYETHYLENE GLYCOL POWDER 17 GM PACK PO SCH (08:57)
[2018-05-14] MEDS ORDERED: LACTULOSE 20 GM/30 ML UDCUP PO ONE (09:34)
[2018-05-14] MEDS: INSULIN GLARGINE 100 UNIT/ML SUBCUT SCH ×2 (10:28→20:46)
[2018-05-14] MEDS: GABAPENTIN 400 MG CAPSULE PO SCH ×3 (10:31→20:45)
[2018-05-14] MEDS ORDERED: SODIUM PHOSPHATE ENEMA 133 ML BOTTLE RECTAL ONE (13:34)
[2018-05-14] MEDS: ONDANSETRON 4 MG/2 ML VIAL IV PRN (19:41)
[2018-05-14] MEDS: ENOXAPARIN 40 MG/0.4 ML SYRINGE SUBCUT SCH (20:47)
[2018-05-15] MEDS: INSULIN REGULAR 100 UNIT/ML SUBCUT SCH ×3 (00:20→12:03)
[2018-05-15] MEDS: ceFAZolin 1,000 MG in SYRINGE 1 EACH IV SCH ×2 (03:10→12:02)
[2018-05-15] MEDS: CARVEDILOL 3.125 MG TABLET PO SCH (09:39)
[2018-05-15] MEDS: LACTOBACILLUS ACIDOPHILUS/BULGARICUS CAPLET PO SCH (09:39)
[2018-05-15] MEDS: MELOXICAM 7.5 MG TABLET PO SCH (09:39)
[2018-05-15] MEDS: LORATADINE 10 MG TABLET PO SCH (09:39)
[2018-05-15] MEDS: INSULIN GLARGINE 100 UNIT/ML SUBCUT SCH (09:39)
[2018-05-15] MEDS: POLYETHYLENE GLYCOL POWDER 17 GM PACK PO SCH (09:39)
[2018-05-15] MEDS: PANTOPRAZOLE 40 MG TABLET PO SCH (09:39)
[2018-05-15] MEDS: GABAPENTIN 400 MG CAPSULE PO SCH (09:39)
[2018-05-15] MEDS: FLUTICASONE 50 MCG NASAL SPRAY 16 GM BOTTLE BOTH NARES SCH (09:41)
[2018-05-15] MEDS: DULoxetine 30 MG CAPSULE PO SCH (09:47)
[2018-05-15 12:30] VITALS: BP 158/74
== END 2018-05-15 13:00 | disposition home or self-care (01) | DRG 501 ==
LOC: EDUNIT# → N.ED 17:47 → N.EDINP 20:10 → SUATTDRO 20:10 → N.3E 20:56
PROVIDERS: ADMIT Internal Medicine Geriatric Medicine; ATTEND Internal Medicine

== ENCOUNTER 2018-05-21 11:09 | Inpatient (IN) ==
[2018-05-21 13:04] LABS: Basophils # 0.1 10*3/uL (0.0-0.2); Basophils % 0.5 % (0.0-0.8); Eosinophils # 0.2 10*3/uL (0.0-0.87); Eosinophils % 1.3 % (0.00-10.9); Hematocrit 35.8 VOL% (42.0-52.0); Hemoglobin 11.3 GM/DL (14.0-18.0); Immature Granulocytes % 0.5 %; Immature Granulocytes Absolute 0.07 #; Lymphocytes # 1.8 10*3/uL (1.4-4.0); Lymphocytes % 13.6 % (21.2-54.2); Mean Corpuscular HGB Conc 31.6 GM/DL (32-36); Mean Corpuscular Hemoglobin 29 PG (27-34); Mean Corpuscular Volume 92.5 FL (87-102); Monocytes # 0.7 10*3/uL (0.11-0.8); Monocytes % 4.9 % (1.7-12.7); Neutrophils # 10.5 10*3/uL (1.4-7.4); Neutrophils % 79.2 % (38.7-73.9); Platelet Count 500 T/CUMM (130-400); Red Blood Count 3.87 MC/CUMM (3.8-5.5); Red Cell Distribution Width 14.8 % (9.3-17.3); White Blood Count 13.2 T/CUMM (4-12)
[2018-05-21] MEDS ORDERED: CEFTAROLINE 600 MG in SODIUM CHLORIDE 0.9% 100 ML IV STA (13:34)
[2018-05-21] MEDS ORDERED: LOPERAMIDE 2 MG CAPSULE ONE (15:08)
[2018-05-21] MEDS ORDERED: LOPERAMIDE 2 MG CAPSULE PO STA (15:09)
[2018-05-21 15:19] LABS: Alanine Aminotransferase 10 U/L (16-61); Albumin 1.7 G/DL (3.4-5.0); Alkaline Phosphatase 189 U/L (45-117); Aspartate Amino Transferase 19 U/L (0-37); Bilirubin,Total < 0.39 MG/DL (0.2-1.0); Blood Urea Nitrogen 16 MG/DL (7-18); Calcium 8.3 MG/DL (8.5-10.1); Glucose 265 MG/DL (74-106); Osmolality,Calculated 284.7 MOS/KG (273-304); Potassium 4.9 MMOL/L (3.5-5.1); Sodium 138 MMOL/L (136-145); Total Protein 6.8 G/DL (6.4-8.3)
[2018-05-21] MEDS ORDERED: GLUCAGON 1 MG VIAL IM PRN (15:56)
[2018-05-21] MEDS ORDERED: DEXTROSE 50% 25 GM/50 ML VIAL IV PRN (15:56)
[2018-05-21] MEDS ORDERED: ACETAMINOPHEN 325 MG TABLET PO PRN (15:56)
[2018-05-21] MEDS: INSULIN LISPRO 100 UNIT/ML SUBCUT SCH ×3 (22:08→22:15)
[2018-05-21] MEDS: INSULIN GLARGINE 100 UNIT/ML SUBCUT SCH (22:11)
[2018-05-21] MEDS: DULoxetine 30 MG CAPSULE PO SCH (22:12)
[2018-05-21] MEDS: CARVEDILOL 3.125 MG TABLET PO SCH (22:12)
[2018-05-22] MEDS: CEFTAROLINE 600 MG in SODIUM CHLORIDE 0.9% 100 ML IV SCH ×2 (02:07→21:23)
[2018-05-22] MEDS: cloNIDine 0.1 MG TABLET PO PRN ×4 (02:33→22:51)
[2018-05-22] MEDS ORDERED: hydrALAZINE 20 MG/1 ML VIAL IV ONE (03:26)
[2018-05-22 04:41] LABS: Basophils # 0.1 10*3/uL (0.0-0.2); Basophils % 0.5 % (0.0-0.8); Eosinophils # 0.3 10*3/uL (0.0-0.87); Hematocrit 26.5 VOL% (42.0-52.0); Hemoglobin 8.4 GM/DL (14.0-18.0); Immature Granulocytes % 0.3 %; Immature Granulocytes Absolute 0.03 #; Lymphocytes # 1.8 10*3/uL (1.4-4.0); Mean Corpuscular HGB Conc 31.7 GM/DL (32-36); Mean Corpuscular Hemoglobin 29 PG (27-34); Mean Corpuscular Volume 91.7 FL (87-102); Mean Platelet Volume 9.4 FL (9.6-12.0); Monocytes # 0.9 10*3/uL (0.11-0.8); Monocytes % 9.4 % (1.7-12.7); Neutrophils # 6.1 10*3/uL (1.4-7.4); Neutrophils % 66.8 % (38.7-73.9); Platelet Count 394 T/CUMM (130-400); Red Blood Count 2.89 MC/CUMM (3.8-5.5); Red Cell Distribution Width 14.7 % (9.3-17.3); White Blood Count 9.2 T/CUMM (4-12)
[2018-05-22 04:49] LABS: Calcium 7.7 MG/DL (8.5-10.1); Osmolality,Calculated 277.4 MOS/KG (273-304); Potassium 4.4 MMOL/L (3.5-5.1)
[2018-05-22] MEDS ORDERED: POLYETHYLENE GLYCOL POWDER 17 GM PACK PO SCH (09:00)
[2018-05-22] MEDS: FLUTICASONE 50 MCG NASAL SPRAY 16 GM BOTTLE BOTH NARES SCH (09:18)
[2018-05-22] MEDS: PANTOPRAZOLE 40 MG TABLET PO SCH (09:19)
[2018-05-22] MEDS: DULoxetine 30 MG CAPSULE PO SCH ×2 (09:19→21:22)
[2018-05-22] MEDS: CARVEDILOL 3.125 MG TABLET PO SCH ×2 (09:19→18:24)
[2018-05-22] MEDS: LACTOBACILLUS ACIDOPHILUS/BULGARICUS CAPLET PO SCH (09:19)
[2018-05-22] MEDS: LORATADINE 10 MG TABLET PO SCH (09:19)
[2018-05-22] MEDS: INSULIN LISPRO 100 UNIT/ML SUBCUT SCH ×4 (09:20→21:22)
[2018-05-22] MEDS: INSULIN GLARGINE 100 UNIT/ML SUBCUT SCH (21:23)
[2018-05-23 04:26] LABS: Basophils % 0.6 % (0.0-0.8); Eosinophils # 0.3 10*3/uL (0.0-0.87); Eosinophils % 4.5 % (0.00-10.9); Hematocrit 25.7 VOL% (42.0-52.0); Hemoglobin 8.2 GM/DL (14.0-18.0); Immature Granulocytes % 0.3 %; Immature Granulocytes Absolute 0.02 #; Lymphocytes # 2.2 10*3/uL (1.4-4.0); Lymphocytes % 31.1 % (21.2-54.2); Mean Corpuscular HGB Conc 31.9 GM/DL (32-36); Mean Corpuscular Hemoglobin 29 PG (27-34); Mean Corpuscular Volume 92.1 FL (87-102); Mean Platelet Volume 9.6 FL (9.6-12.0); Monocytes # 0.8 10*3/uL (0.11-0.8); Monocytes % 11.4 % (1.7-12.7); Neutrophils # 3.7 10*3/uL (1.4-7.4); Neutrophils % 52.1 % (38.7-73.9); Platelet Count 345 T/CUMM (130-400); Red Blood Count 2.79 MC/CUMM (3.8-5.5); Red Cell Distribution Width 14.7 % (9.3-17.3)
[2018-05-23 04:48] LABS: Calcium 7.4 MG/DL (8.5-10.1); Osmolality,Calculated 276.4 MOS/KG (273-304); Potassium 4.2 MMOL/L (3.5-5.1)
[2018-05-23] MEDS ORDERED: hydrALAZINE 20 MG/1 ML VIAL IV ONE (06:08)
[2018-05-23] MEDS: INSULIN LISPRO 100 UNIT/ML SUBCUT SCH ×3 (09:15→16:30)
[2018-05-23] MEDS: INSULIN NPH 100 UNIT/ML SUBCUT SCH ×2 (09:16→19:33)
[2018-05-23] MEDS: FLUTICASONE 50 MCG NASAL SPRAY 16 GM BOTTLE BOTH NARES SCH (09:17)
[2018-05-23] MEDS: CARVEDILOL 3.125 MG TABLET PO SCH ×2 (09:17→19:33)
[2018-05-23] MEDS: LACTOBACILLUS ACIDOPHILUS/BULGARICUS CAPLET PO SCH (09:17)
[2018-05-23] MEDS: LORATADINE 10 MG TABLET PO SCH (09:17)
[2018-05-23] MEDS: PANTOPRAZOLE 40 MG TABLET PO SCH (09:17)
[2018-05-23] MEDS: DULoxetine 30 MG CAPSULE PO SCH ×2 (09:17→21:39)
[2018-05-23] MEDS: CEFTAROLINE 600 MG in SODIUM CHLORIDE 0.9% 100 ML IV SCH (09:25)
[2018-05-23] MEDS ORDERED: SKIN HEALING OINT (AQUAPHOR) 50 GM TUBE TOP PRN (11:27)
[2018-05-23] MEDS ORDERED: VANCOMYCIN INJ 1,000 MG in SODIUM CHLORIDE 0.9% 250 ML IV SCH (15:00)
[2018-05-23] MEDS: CIPROFLOXACIN INJ 400 MG in PREMIX 1 EACH IV SCH (15:03)
[2018-05-23] MEDS: SODIUM HYPOCHLORITE 0.25% IRRIG 473 ML BOTTLE TOP SCH (15:04)
[2018-05-23] MEDS: cloNIDine 0.1 MG TABLET PO PRN (15:12)
[2018-05-24] MEDS: INSULIN LISPRO 100 UNIT/ML SUBCUT SCH ×5 (01:46→20:47)
[2018-05-24] MEDS: CIPROFLOXACIN INJ 400 MG in PREMIX 1 EACH IV SCH ×2 (02:09→17:26)
[2018-05-24] MEDS: cloNIDine 0.1 MG TABLET PO PRN ×2 (02:09→16:40)
[2018-05-24 04:39] LABS: Basophils # 0.1 10*3/uL (0.0-0.2); Basophils % 0.6 % (0.0-0.8); Eosinophils # 0.3 10*3/uL (0.0-0.87); Hematocrit 26.7 VOL% (42.0-52.0); Hemoglobin 8.5 GM/DL (14.0-18.0); Immature Granulocytes % 0.4 %; Immature Granulocytes Absolute 0.03 #; Lymphocytes # 1.7 10*3/uL (1.4-4.0); Lymphocytes % 21.4 % (21.2-54.2); Mean Corpuscular HGB Conc 31.8 GM/DL (32-36); Mean Corpuscular Hemoglobin 30 PG (27-34); Mean Corpuscular Volume 92.7 FL (87-102); Mean Platelet Volume 9.6 FL (9.6-12.0); Monocytes # 0.8 10*3/uL (0.11-0.8); Monocytes % 10.6 % (1.7-12.7); Platelet Count 349 T/CUMM (130-400); Red Blood Count 2.88 MC/CUMM (3.8-5.5); Red Cell Distribution Width 14.6 % (9.3-17.3)
[2018-05-24 05:05] LABS: Calcium 7.7 MG/DL (8.5-10.1); Potassium 4.6 MMOL/L (3.5-5.1)
[2018-05-24] MEDS: INSULIN NPH 100 UNIT/ML SUBCUT SCH ×2 (07:48→16:41)
[2018-05-24] MEDS: DULoxetine 30 MG CAPSULE PO SCH ×2 (09:41→20:46)
[2018-05-24] MEDS: LORATADINE 10 MG TABLET PO SCH (09:42)
[2018-05-24] MEDS: PANTOPRAZOLE 40 MG TABLET PO SCH (09:42)
[2018-05-24] MEDS: CARVEDILOL 6.25 MG TABLET PO SCH ×2 (09:42→16:41)
[2018-05-24] MEDS: FLUTICASONE 50 MCG NASAL SPRAY 16 GM BOTTLE BOTH NARES SCH (09:42)
[2018-05-24] MEDS: LACTOBACILLUS ACIDOPHILUS/BULGARICUS CAPLET PO SCH (09:42)
[2018-05-24] MEDS: SODIUM HYPOCHLORITE 0.25% IRRIG 473 ML BOTTLE TOP SCH (09:43)
[2018-05-24] MEDS: CARVEDILOL 3.125 MG TABLET PO SCH (13:08)
[2018-05-25] MEDS: CIPROFLOXACIN INJ 400 MG in PREMIX 1 EACH IV SCH ×2 (02:06→14:20)
[2018-05-25] MEDS: cloNIDine 0.1 MG TABLET PO PRN (03:51)
[2018-05-25 05:31] LABS: Calcium 7.5 MG/DL (8.5-10.1); Osmolality,Calculated 274.2 MOS/KG (273-304); Potassium 4.6 MMOL/L (3.5-5.1)
[2018-05-25] MEDS: INSULIN LISPRO 100 UNIT/ML SUBCUT SCH ×5 (07:33→22:22)
[2018-05-25] MEDS: INSULIN NPH 100 UNIT/ML SUBCUT SCH ×2 (07:34→16:32)
[2018-05-25] MEDS: SODIUM HYPOCHLORITE 0.25% IRRIG 473 ML BOTTLE TOP SCH (08:20)
[2018-05-25] MEDS: DULoxetine 30 MG CAPSULE PO SCH ×2 (08:20→21:17)
[2018-05-25] MEDS: LORATADINE 10 MG TABLET PO SCH (08:20)
[2018-05-25] MEDS: PANTOPRAZOLE 40 MG TABLET PO SCH (08:20)
[2018-05-25] MEDS: FLUTICASONE 50 MCG NASAL SPRAY 16 GM BOTTLE BOTH NARES SCH (08:20)
[2018-05-25] MEDS: LACTOBACILLUS ACIDOPHILUS/BULGARICUS CAPLET PO SCH (08:20)
[2018-05-25] MEDS: CARVEDILOL 6.25 MG TABLET PO SCH ×2 (08:20→17:04)
[2018-05-25] MEDS: hydrALAZINE 10 MG TABLET PO SCH ×2 (10:07→21:17)
[2018-05-25] MEDS: ONDANSETRON 4 MG/2 ML VIAL IV PRN (22:20)
[2018-05-26] MEDS: CIPROFLOXACIN INJ 400 MG in PREMIX 1 EACH IV SCH ×2 (01:11→15:22)
[2018-05-26] MEDS: cloNIDine 0.1 MG TABLET PO PRN ×3 (01:11→11:55)
[2018-05-26] MEDS: INSULIN LISPRO 100 UNIT/ML SUBCUT SCH ×3 (07:46→16:35)
[2018-05-26 08:48] LABS: Basophils # 0.1 10*3/uL (0.0-0.2); Basophils % 0.7 % (0.0-0.8); Eosinophils # 0.4 10*3/uL (0.0-0.87); Eosinophils % 4.9 % (0.00-10.9); Hematocrit 27.1 VOL% (42.0-52.0); Hemoglobin 8.5 GM/DL (14.0-18.0); Immature Granulocytes % 0.2 %; Immature Granulocytes Absolute 0.02 #; Lymphocytes # 1.7 10*3/uL (1.4-4.0); Lymphocytes % 20.3 % (21.2-54.2); Mean Corpuscular HGB Conc 31.4 GM/DL (32-36); Mean Corpuscular Hemoglobin 29 PG (27-34); Mean Corpuscular Volume 93.4 FL (87-102); Mean Platelet Volume 9.7 FL (9.6-12.0); Monocytes # 0.9 10*3/uL (0.11-0.8); Monocytes % 10.1 % (1.7-12.7); Neutrophils # 5.5 10*3/uL (1.4-7.4); Neutrophils % 63.8 % (38.7-73.9); Platelet Count 309 T/CUMM (130-400); Red Cell Distribution Width 14.7 % (9.3-17.3); White Blood Count 8.6 T/CUMM (4-12)
[2018-05-26 09:17] LABS: Calcium 7.6 MG/DL (8.5-10.1); Osmolality,Calculated 279.8 MOS/KG (273-304); Potassium 5.3 MMOL/L (3.5-5.1)
[2018-05-26] MEDS: PANTOPRAZOLE 40 MG TABLET PO SCH (09:20)
[2018-05-26] MEDS: DULoxetine 30 MG CAPSULE PO SCH ×2 (09:20→23:20)
[2018-05-26] MEDS: INSULIN NPH 100 UNIT/ML SUBCUT SCH ×2 (09:21→16:47)
[2018-05-26] MEDS: CARVEDILOL 12.5 MG TABLET PO SCH ×2 (09:21→16:47)
[2018-05-26] MEDS: LORATADINE 10 MG TABLET PO SCH (09:21)
[2018-05-26] MEDS: LACTOBACILLUS ACIDOPHILUS/BULGARICUS CAPLET PO SCH (09:21)
[2018-05-26] MEDS: FLUTICASONE 50 MCG NASAL SPRAY 16 GM BOTTLE BOTH NARES SCH (09:22)
[2018-05-26] MEDS: SODIUM HYPOCHLORITE 0.25% IRRIG 473 ML BOTTLE TOP SCH (09:22)
[2018-05-27] MEDS: CIPROFLOXACIN INJ 400 MG in PREMIX 1 EACH IV SCH ×2 (02:53→15:25)
[2018-05-27 05:27] LABS: Basophils # 0.1 10*3/uL (0.0-0.2); Basophils % 0.7 % (0.0-0.8); Eosinophils # 0.5 10*3/uL (0.0-0.87); Eosinophils % 6.5 % (0.00-10.9); Hematocrit 26.9 VOL% (42.0-52.0); Hemoglobin 8.4 GM/DL (14.0-18.0); Immature Granulocytes % 0.4 %; Immature Granulocytes Absolute 0.03 #; Lymphocytes # 2.1 10*3/uL (1.4-4.0); Lymphocytes % 27.6 % (21.2-54.2); Mean Corpuscular HGB Conc 31.2 GM/DL (32-36); Mean Corpuscular Hemoglobin 29 PG (27-34); Mean Corpuscular Volume 94.1 FL (87-102); Mean Platelet Volume 9.8 FL (9.6-12.0); Monocytes # 0.8 10*3/uL (0.11-0.8); Neutrophils % 53.8 % (38.7-73.9); Platelet Count 309 T/CUMM (130-400); Red Blood Count 2.86 MC/CUMM (3.8-5.5); Red Cell Distribution Width 14.9 % (9.3-17.3); White Blood Count 7.4 T/CUMM (4-12)
[2018-05-27 05:43] LABS: Calcium 7.8 MG/DL (8.5-10.1); Osmolality,Calculated 288.5 MOS/KG (273-304); Potassium 5.5 MMOL/L (3.5-5.1)
[2018-05-27] MEDS: LORATADINE 10 MG TABLET PO SCH (08:48)
[2018-05-27] MEDS: PANTOPRAZOLE 40 MG TABLET PO SCH (08:48)
[2018-05-27] MEDS: LACTOBACILLUS ACIDOPHILUS/BULGARICUS CAPLET PO SCH (08:48)
[2018-05-27] MEDS: CARVEDILOL 12.5 MG TABLET PO SCH ×2 (08:48→16:51)
[2018-05-27] MEDS: INSULIN NPH 100 UNIT/ML SUBCUT SCH ×2 (08:49→15:33)
[2018-05-27] MEDS: DULoxetine 30 MG CAPSULE PO SCH ×2 (08:53→21:35)
[2018-05-27] MEDS: INSULIN LISPRO 100 UNIT/ML SUBCUT SCH ×3 (08:53→15:33)
[2018-05-27] MEDS ORDERED: SODIUM POLYSTYRENE SULFATE 15 GM/60 ML BOTTLE PO ONE (10:00)
[2018-05-27] MEDS: SODIUM HYPOCHLORITE 0.25% IRRIG 473 ML BOTTLE TOP SCH (11:30)
[2018-05-27] MEDS: FLUTICASONE 50 MCG NASAL SPRAY 16 GM BOTTLE BOTH NARES SCH (11:30)
[2018-05-27] MEDS: SODIUM CHLORIDE 0.9% 1,000 ML IV SCH (12:25)
[2018-05-27] MEDS: NICOTINE 21 MG/24 HR PATCH TRANSDERM SCH (12:25)
[2018-05-27] MEDS: ONDANSETRON 4 MG/2 ML VIAL IV PRN (16:48)
[2018-05-28] MEDS: SODIUM CHLORIDE 0.9% 1,000 ML IV SCH ×3 (00:20→19:54)
[2018-05-28] MEDS: CIPROFLOXACIN INJ 400 MG in PREMIX 1 EACH IV SCH (02:22)
[2018-05-28] MEDS: cloNIDine 0.1 MG TABLET PO PRN ×2 (05:52→11:52)
[2018-05-28] MEDS: INSULIN NPH 100 UNIT/ML SUBCUT SCH ×2 (07:55→16:32)
[2018-05-28] MEDS: INSULIN LISPRO 100 UNIT/ML SUBCUT SCH ×3 (07:55→16:32)
[2018-05-28] MEDS: LACTOBACILLUS ACIDOPHILUS/BULGARICUS CAPLET PO SCH (09:27)
[2018-05-28] MEDS: DULoxetine 30 MG CAPSULE PO SCH ×2 (09:27→20:52)
[2018-05-28] MEDS: PANTOPRAZOLE 40 MG TABLET PO SCH (09:28)
[2018-05-28] MEDS: CARVEDILOL 12.5 MG TABLET PO SCH ×2 (09:28→17:42)
[2018-05-28] MEDS: LORATADINE 10 MG TABLET PO SCH (09:28)
[2018-05-28] MEDS: SODIUM HYPOCHLORITE 0.25% IRRIG 473 ML BOTTLE TOP SCH (09:28)
[2018-05-28] MEDS: NICOTINE 21 MG/24 HR PATCH TRANSDERM SCH (09:28)
[2018-05-28] MEDS: FLUTICASONE 50 MCG NASAL SPRAY 16 GM BOTTLE BOTH NARES SCH (09:29)
[2018-05-28 09:52] LABS: Basophils # 0.1 10*3/uL (0.0-0.2); Basophils % 0.7 % (0.0-0.8); Eosinophils # 0.6 10*3/uL (0.0-0.87); Eosinophils % 6.1 % (0.00-10.9); Hematocrit 30.4 VOL% (42.0-52.0); Hemoglobin 9.2 GM/DL (14.0-18.0); Immature Granulocytes % 0.2 %; Immature Granulocytes Absolute 0.02 #; Lymphocytes % 20.7 % (21.2-54.2); Mean Corpuscular HGB Conc 30.3 GM/DL (32-36); Mean Corpuscular Hemoglobin 29 PG (27-34); Mean Corpuscular Volume 96.5 FL (87-102); Mean Platelet Volume 9.7 FL (9.6-12.0); Monocytes # 0.9 10*3/uL (0.11-0.8); Monocytes % 9.5 % (1.7-12.7); Neutrophils % 62.8 % (38.7-73.9); Platelet Count 345 T/CUMM (130-400); Red Blood Count 3.15 MC/CUMM (3.8-5.5); Red Cell Distribution Width 15.5 % (9.3-17.3); White Blood Count 9.5 T/CUMM (4-12)
[2018-05-28 10:17] LABS: Calcium 7.8 MG/DL (8.5-10.1); Osmolality,Calculated 286.7 MOS/KG (273-304); Potassium 5.3 MMOL/L (3.5-5.1)
[2018-05-28] MEDS ORDERED: CARVEDILOL 12.5 MG TABLET PO ONE (10:30)
[2018-05-28] MEDS: ONDANSETRON 4 MG/2 ML VIAL IV PRN (14:41)
[2018-05-28] MEDS: CARVEDILOL 25 MG TABLET PO SCH (20:52)
[2018-05-28] MEDS: CIPROFLOXACIN 500 MG TABLET PO SCH (20:52)
[2018-05-29] MEDS: SODIUM CHLORIDE 0.9% 1,000 ML IV SCH ×2 (04:30→12:18)
[2018-05-29 04:59] LABS: Basophils # 0.1 10*3/uL (0.0-0.2); Basophils % 0.6 % (0.0-0.8); Eosinophils # 0.6 10*3/uL (0.0-0.87); Eosinophils % 7.5 % (0.00-10.9); Hematocrit 26.2 VOL% (42.0-52.0); Immature Granulocytes % 0.3 %; Immature Granulocytes Absolute 0.02 #; Lymphocytes % 25.4 % (21.2-54.2); Mean Corpuscular HGB Conc 30.5 GM/DL (32-36); Mean Corpuscular Hemoglobin 29 PG (27-34); Mean Corpuscular Volume 95.6 FL (87-102); Mean Platelet Volume 9.7 FL (9.6-12.0); Monocytes # 0.7 10*3/uL (0.11-0.8); Neutrophils # 4.5 10*3/uL (1.4-7.4); Neutrophils % 57.2 % (38.7-73.9); Platelet Count 319 T/CUMM (130-400); Red Blood Count 2.74 MC/CUMM (3.8-5.5); Red Cell Distribution Width 15.5 % (9.3-17.3); White Blood Count 7.9 T/CUMM (4-12)
[2018-05-29 05:04] LABS: Calcium 7.7 MG/DL (8.5-10.1); Osmolality,Calculated 286.4 MOS/KG (273-304); Potassium 5.5 MMOL/L (3.5-5.1)
[2018-05-29] MEDS ORDERED: SODIUM POLYSTYRENE SULFATE 15 GM/60 ML BOTTLE PO ONE (08:00)
[2018-05-29] MEDS: INSULIN NPH 100 UNIT/ML SUBCUT SCH (08:24)
[2018-05-29] MEDS: INSULIN LISPRO 100 UNIT/ML SUBCUT SCH ×2 (08:24→12:02)
[2018-05-29] MEDS: DULoxetine 30 MG CAPSULE PO SCH (11:11)
[2018-05-29] MEDS: PANTOPRAZOLE 40 MG TABLET PO SCH (11:11)
[2018-05-29] MEDS: NICOTINE 21 MG/24 HR PATCH TRANSDERM SCH (11:11)
[2018-05-29] MEDS: CARVEDILOL 25 MG TABLET PO SCH (11:11)
[2018-05-29] MEDS: CIPROFLOXACIN 500 MG TABLET PO SCH (11:11)
[2018-05-29] MEDS: LACTOBACILLUS ACIDOPHILUS/BULGARICUS CAPLET PO SCH (11:11)
[2018-05-29] MEDS: LORATADINE 10 MG TABLET PO SCH (11:11)
[2018-05-29] MEDS: FLUTICASONE 50 MCG NASAL SPRAY 16 GM BOTTLE BOTH NARES SCH (11:21)
[2018-05-29 11:43] VITALS: BP 187/110
[2018-05-29] MEDS: cloNIDine 0.1 MG TABLET PO PRN (12:22)
== END 2018-05-29 15:01 | disposition swing bed (61) | DRG 300 ==
LOC: N.ED 11:09 → N.EDINP 15:06 → SUATTDRO 15:06 → N.2E 19:22
PROVIDERS: ADMIT Internal Medicine; ATTEND Internal Medicine

== ENCOUNTER 2019-02-03 04:59 | Observation (INO) ==
[2019-02-03] MEDS ORDERED: DEXTROSE 50% 25 GM/50 ML VIAL IV STA (05:49)
[2019-02-03] MEDS ORDERED: DEXTROSE 50% 25 GM/50 ML SYRINGE IV ONE (05:50)
[2019-02-03] MEDS ORDERED: ONDANSETRON 4 MG/2 ML VIAL IV STA (06:04)
[2019-02-03 06:47] LABS: Apearance,Urine CLEAR (Clear); Bilirubin,Urine Negative (Negative); Blood, Urine Small mg/dL (Negative); Glucose,Urine (UA) Negative (Negative); Hyaline Casts,Urine 1 /LPF (0-3); Ketones,Urine Negative (Negative); Mucus,Urine Occasional /LPF (Occasional); Nitrite,Urine Negative (Negative); Protein,Urine 100 MG/DL; RBC,Urine 1 /HPF (0-4); Urine Color Straw (Yellow); Urine Urobilinogen < 2.0 EU/DL (0.2-1.0)
[2019-02-03 06:50] LABS: Basophils % 0.5 % (0.0-0.8); Eosinophils # 0.1 10*3/uL (0.0-0.87); Eosinophils % 0.8 % (0.00-10.9); Hematocrit 29.5 VOL% (42.0-52.0); Immature Granulocytes % 0.6 %; Immature Granulocytes Absolute 0.05 #; Lymphocytes % 22.4 % (21.2-54.2); Mean Corpuscular HGB Conc 33.9 GM/DL (32-36); Monocytes % 8.3 % (1.7-12.7); Neutrophils % 67.4 % (38.7-73.9); Platelet Count 314 T/CUMM (130-400); Red Blood Count 3.24 MC/CUMM (3.8-5.5); Red Cell Distribution Width 17.1 % (9.3-17.3); White Blood Count 8.7 T/CUMM (4-12)
[2019-02-03 07:03] LABS: Alanine Aminotransferase 28 U/L (16-61); Albumin 3.1 G/DL (3.4-5.0); Alkaline Phosphatase 90 U/L (45-117); Aspartate Amino Transferase 31 U/L (0-37); Bilirubin,Total < 0.39 MG/DL (0.2-1.0); Blood Urea Nitrogen 23 MG/DL (7-18); Estimated Glom Filtration Rate 44 ML/MIN; Osmolality,Calculated 295.1 MOS/KG (273-304); Total Protein 6.3 G/DL (6.4-8.3)
[2019-02-03] MEDS: DEXTROSE 5% NACL 0.9% 1,000 ML IV SCH ×2 (07:04→19:15)
[2019-02-03 07:06] LABS: Glucose 25 MG/DL (74-106)
[2019-02-03] MEDS ORDERED: ONDANSETRON 4 MG/2 ML VIAL IV PRN (08:49)
[2019-02-03] MEDS ORDERED: GLUCAGON 1 MG VIAL IM PRN (08:49)
[2019-02-03] MEDS ORDERED: cloNIDine 0.1 MG TABLET PO PRN (08:54)
[2019-02-03] MEDS: INSULIN LISPRO 100 UNIT/ML SUBCUT SCH ×3 (12:34→22:05)
[2019-02-03] MEDS: PANTOPRAZOLE 40 MG TABLET PO SCH (12:46)
[2019-02-03] MEDS: MORPHINE 4 MG/1 ML VIAL IV PRN ×2 (12:46→22:30)
[2019-02-03] MEDS: FERROUS SULFATE 325 MG TABLET PO SCH ×2 (17:07→22:07)
[2019-02-03] MEDS: carvediloL 25 MG TABLET PO SCH (17:07)
[2019-02-04 05:16] LABS: Basophils % 0.4 % (0.0-0.8); Eosinophils # 0.1 10*3/uL (0.0-0.87); Eosinophils % 1.4 % (0.00-10.9); Hematocrit 20.3 VOL% (42.0-52.0); Hemoglobin 6.9 GM/DL (14.0-18.0); Immature Granulocytes % 0.4 %; Immature Granulocytes Absolute 0.03 #; Lymphocytes # 2.4 10*3/uL (1.4-4.0); Lymphocytes % 29.4 % (21.2-54.2); Mean Corpuscular Volume 91.4 FL (87-102); Mean Platelet Volume 10.5 FL (9.6-12.0); Monocytes % 8.1 % (1.7-12.7); Neutrophils % 60.3 % (38.7-73.9); Platelet Count 232 T/CUMM (130-400); Red Blood Count 2.22 MC/CUMM (3.8-5.5); Red Cell Distribution Width 16.9 % (9.3-17.3)
[2019-02-04 05:36] LABS: Albumin 2.2 G/DL (3.4-5.0); Bilirubin,Total 0.7 MG/DL (0.2-1.0); Calcium 7.7 MG/DL (8.5-10.1); Osmolality,Calculated 299.1 MOS/KG (273-304)
[2019-02-04 06:08] LABS: Hematocrit 20.1 VOL% (42.0-52.0); Hemoglobin 6.7 GM/DL (14.0-18.0)
[2019-02-04] MEDS ORDERED: SODIUM CHLORIDE 0.9% 1,000 ML IV PRN ×2 (06:20→06:26)
[2019-02-04] MEDS: INSULIN LISPRO 100 UNIT/ML SUBCUT SCH ×4 (08:44→21:15)
[2019-02-04] MEDS: PANTOPRAZOLE 40 MG TABLET PO SCH (09:28)
[2019-02-04] MEDS: carvediloL 25 MG TABLET PO SCH ×2 (09:28→17:19)
[2019-02-04] MEDS: FERROUS SULFATE 325 MG TABLET PO SCH ×2 (09:28→21:15)
[2019-02-04] MEDS: MORPHINE 4 MG/1 ML VIAL IV PRN (17:19)
[2019-02-04 19:34] LABS: Hematocrit 30.4 VOL% (42.0-52.0)
[2019-02-04 19:36] LABS: Hemoglobin 10.3 GM/DL (14.0-18.0)
[2019-02-04] MEDS: DEXTROSE 5% NACL 0.9% 1,000 ML IV SCH (19:44)
[2019-02-05 04:43] LABS: Basophils % 0.4 % (0.0-0.8); Eosinophils # 0.2 10*3/uL (0.0-0.87); Eosinophils % 2.6 % (0.00-10.9); Hematocrit 29.8 VOL% (42.0-52.0); Hemoglobin 10.2 GM/DL (14.0-18.0); Immature Granulocytes % 0.2 %; Immature Granulocytes Absolute 0.02 #; Lymphocytes % 33.6 % (21.2-54.2); Mean Corpuscular HGB Conc 34.2 GM/DL (32-36); Mean Platelet Volume 10.6 FL (9.6-12.0); Monocytes % 9.1 % (1.7-12.7); Neutrophils % 54.1 % (38.7-73.9); Platelet Count 211 T/CUMM (130-400); Red Blood Count 3.35 MC/CUMM (3.8-5.5); Red Cell Distribution Width 16.6 % (9.3-17.3)
[2019-02-05 05:10] LABS: Albumin 2.1 G/DL (3.4-5.0); Bilirubin,Total 0.6 MG/DL (0.2-1.0); Calcium 7.7 MG/DL (8.5-10.1); Osmolality,Calculated 287.1 MOS/KG (273-304)
[2019-02-05 07:37] VITALS: BP 137/86
[2019-02-05] MEDS: INSULIN LISPRO 100 UNIT/ML SUBCUT SCH (07:39)
[2019-02-05] MEDS: carvediloL 25 MG TABLET PO SCH (08:15)
[2019-02-05] MEDS: FERROUS SULFATE 325 MG TABLET PO SCH (08:15)
[2019-02-05] MEDS: PANTOPRAZOLE 40 MG TABLET PO SCH (08:15)
[2019-02-05] MEDS ORDERED: ACETAMINOPHEN 325 MG TABLET PO ONE (09:17)
== END 2019-02-05 09:28 | disposition home or self-care (01) ==
LOC: EDUNIT# → EDBD → N.EDINP 04:59 → N.ED 04:59 → N.EDINP 09:11 → N.2W 09:29
PROVIDERS: ADMIT Internal Medicine; ATTEND Internal Medicine